=== PATIENT | male | born 1960 | race Caucasian/White ===

== ENCOUNTER 2017-07-26 11:17 | Observation (INO) | payer MEDICAID, SELFPAY ==
[2017-07-26] VITALS (16 sets, daily range): BP systolic 147–183; BP diastolic 75–103; PULSE 57–80; RESP 12–18; TEMP 36.6–36.7; O2SAT 94–97; BMI 32.0; BMI 31.6
--- NOTE | 2017-07-26 11:26 | RAD_ITS ---
STUDY: X-RAY CHEST REASON FOR EXAM: Male, 56 years old. Cough. TECHNIQUE: Single AP portable view of the chest. COMPARISON: 10/01/2015 FINDINGS: There is mild elevation of the right hemidiaphragm. The lungs are clear and expanded. There is no demonstrated pleural abnormality. Normal size heart. Normal mediastinum and anita. Normal visualized pulmonary arteries. There is mild atherosclerotic calcification of the aortic arch with tortuosity. The thoracic spine is not well-visualized. Normal visualized ribs, clavicles, and shoulders. There is no demonstrated abnormality of the visualized soft tissue structures of the upper abdomen. RAD/Chest 1 View IMPRESSION: No active pulmonary disease. Electronically Signed: Brandon Pineda MD at 12:14 EDT Tel , Service support ,
--- NOTE | 2017-07-26 11:26 | EKG12_ITS ---
Test Reason : DIZZINESS Blood Pressure : / mmHG Vent. Rate : 074 BPM Atrial Rate : 074 BPM P-R Int : 178 ms QRS Dur : 076 ms QT Int : 388 ms P-R-T Axes : 049 -15 036 degrees QTc Int : 430 ms Normal sinus rhythm Normal ECG Confirmed by CHAZ BEE MD ([id number]), video editor LETY PUENTES ([id number]) on 07/28/2017 3:28:52 PM Referred By: JORGE Confirmed By:CHAZ BEE MD
--- NOTE | 2017-07-26 11:26 | CT_ITS ---
STUDY: CT BRAIN WITHOUT CONTRAST REASON FOR EXAM: Male, 56 years old. Dizziness and seizure. RADIATION DOSAGE (If Supplied By Facility): CTDIvol = ( 44.99 ) mGy, DLP = ( 796.11 ) mGycm TECHNIQUE: Transaxial CT imaging of the brain was performed without administration of intravenous contrast material. Individualized dose optimization techniques were used for this CT. COMPARISON: 01/01/2017. FINDINGS: Normal soft tissue structures. The patient again is status post left temporal craniotomy. Normal size ventricles and extra-axial spaces for the patient's age. There is encephalomalacia in the left upper region unchanged since prior exam. Normal basal ganglia and thalami. Normal brainstem. Normal cerebellum. There is no intracranial hemorrhage. There are no findings of an acute ischemic infarction. Normal visualized paranasal sinuses. CT/Brain/Head without Contrast IMPRESSION: No significant change. No acute intracranial process. Electronically Signed: Brandon Pineda MD at 12:39 EDT Tel , Service support ,
--- NOTE | 2017-07-26 11:31 | ED.DCSUM_ITS ---
- ER Visit Summary Date of Service: 07/26/17 Chief Complaint: Dizziness, numbness History of Present Illness: The patient is a 56 M with medical history significant for prior traumatic brain injury and seizure disorder along with prior stroke presents with 48 hours of dizziness and right-sided numbness. Patient states he woke Thursday. He felt like he had some drooping in his right face. He also had some numbness on his right face, arm, and leg. He states his symptoms really have not resolved. Today, he is begun to have more unsteadiness on his feet. He describes a sensation of motion and he has been having double vision. He states that he had a prior stroke with some left- sided deficits that he recovered from. He is not on anticoagulants. The patient states when he walks, he just feels very unsteady like he is going to fall over. He is on Tegretol, but has no history of being Tegretol toxic. He has had no recent falls. He did not strike his head. He denies any trouble speaking or swallowing. Physical Examination: Patient has an NIH of 3. He received 1 point for sensory deficit of the right side. He received 1 point for ataxia. 1 point for right leg weakness. There is no visual field cut. Head is normal cephalic, atraumatic. Pupils equal round reactive. Neck supple. Heart regular rate and rhythm. Lungs clear. Abdomen soft. Test Results: [] Emergency Department Course and Treatment: The patient has nystagmus when looking to the extremes of gait. He also has ataxia and focal neurologic symptoms. He is outside the window for TPA. His NIH is only 3 and he has had symptoms for 48 hours. A lot of the patient's symptoms would fit with Tegretol toxicity, however I would not expect him to have focal neurologic complaints with just Tegretol toxicity. His head CT is unremarkable. Screening labs are unremarkable. His Tegretol level is supratherapeutic at almost 18. I do feel that this would explain his double vision and ataxia, however I am hesitant to pin all of his symptoms on medication toxicity. I do for the patient's can require formal MRI for stroke rule out. Patient will be admitted and is discussed with the hospitalist. Treatment Plan: [] Disposition: Admission Impression: 1. Right-sided paresthesias 2. Ataxia 3. Tegretol toxicity This note was generated with [employer] dictation software. It may contain incorrect words, spelling, and punctuation that were not noted in review of the chart prior to signing ED Disposition - Plan for ED Patient: Chief Complaint: Dizziness Referrals: Helder Camejo MD [Primary Care Provider] -
[2017-07-26] MEDS: 0.9% Normal Saline 1,000 ML 100 ML IV ×2 (11:50→17:26)
[2017-07-26 11:51] LABS: Absolute Lymphocyte Count 0.74 X10^3/ul (0.83-4.51); Absolute Neutrophil Count 4.6 X10^3/uL (2.0-7.7); Basophil# 0.03 X10^3/uL; Basophil% 0.5 % (0-1); Eosinophil# 0.06 X10^3/uL; Hematocrit 41.7 % (40-54); Hemoglobin 13.6 g/dl (13.0-16.5); Lymphocyte # 0.74 X10^3/ul (4.0); Lymphocyte % 12.3 % (19-41); Mean Corp Hgb Conc 32.6 g/gl (32-36); Mean Corpuscular Hgb 34.6 pg (27.0-32.0); Mean Corpuscular Volume 106.1 fL (80-94); Mean Platelet Vol. 9.6 fl (6.2-12.0); Monocyte# 0.57 X10^3/uL; Monocyte% 9.5 % (0-10); Neutrophil # 4.57 X10^3/uL (2.7-7.7); POSITIVE COUNT NO; POSITIVE DIFFERENTIAL NO; POSITIVE MORPHOLOGY NO; Platelet Count 208 K/mm3 (150-450); RBC Distribution Width CV 13.6 % (11.6-14.6); Red Blood Count 3.93 M/mm3 (4.6-6.2)
[2017-07-26 11:56] LABS: International Normalized Ratio 0.9; Prothrombin Time (Protime)PT. 12.4 SECONDS (11.7-14.9)
[2017-07-26 11:57] LABS: Partial Thromboplast Time 23.4 Seconds (24.1-36.2)
[2017-07-26 12:07] LABS: Anion Gap 6 (5-15); BUN 8 mg/dL (7-18); Calcium,Total 8.4 mg/dL (8.5-10.1); Chloride 103 mmol/L (98-107); EST Glomerular Filtration Rate 107 mL/min (>60); Est Glom Filt Rate - Afr Amer 130 mL/min (>60); Estimated Creatinine Clearance 105.56 ml/min; Glucose 119 mg/dL (74-106); Potassium 3.8 mmol/L (3.5-5.1); Sodium Level 138 mmol/L (136-145)
[2017-07-26 12:26] LABS: Bedside Glucose 110 mg/dL (70-110)
[2017-07-26 12:42] LABS: Carbamazepine (Tegretol) 17.8 ug/mL (4.0-12.0)
--- NOTE | 2017-07-26 12:43 | ED.RN ---
DR PRICE NOTIFIED OF TEGRETOL LEVEL
--- NOTE | 2017-07-26 13:30 | PCM.HP.STD ---
Problem List (1) CVA (cerebral vascular accident) Status: Chronic (2) Substance use disorder Status: Chronic (3) TBI (traumatic brain injury) Status: Chronic (4) Hepatitis C Status: Chronic (5) Seizure Status: Chronic (6) Personal history of traumatic brain injury Status: Deleted History of Present Illness Date of Admission: 07/26/17 Chief Complaint: Dizziness, double vision, right-sided numbness. The patient is a 56 year old M with past medical history as mentioned above presented to the emergency room because of dizziness, double vision and numbness on the right side of his body. His symptoms started 2 days ago with dizziness, described as feeling unsteady, about to fall, aggravated by standing up, associated with double vision that was intermittent and on the same day, he started having numbness and tingling on the right side of his face, right upper and lower extremities. He mentioned that has been having difficulties finding the words at the same time. He had a history of stroke in 1996 which left him with minimal left side facial droop as well as minimal weakness in the left side of his body. He mentioned that the numbness, tingling and minimal weakness in the right side is all new. He history of traumatic brain injury long time ago status post craniectomy. He had a history of seizure disorder secondary to the traumatic brain injury and he has been on Tegretol for seizure and he is not sure was he had a seizure episode. He had a history of stroke in 1996 with residual minimal left-sided facial droop and minimal weakness on the left upper and lower extremities. He history of renal cell carcinoma status post partial left nephrectomy. In the emergency room, his initial NIH score was 3. His blood pressure was around 160 systolic, other vital signs are stable. His routine blood work was unremarkable. EKG revealed normal sinus rhythm with normal [place] interval, normal QRS, normal QTC and no acute ischemic changes. Troponin is negative. Pro time and INR were normal. CT scan brain showed no acute infarction or hemorrhage. Chest x-ray was normal, no infiltrate, consolidation or effusion. Tegretol level was 17.8 which is elevated. He is being admitted for right side paresthesia, ataxia for evaluation and also found to have Tegretol toxicity. Past Medical History Past Medical History (Chronic Problems): Chronic Problems History of renal cell carcinoma (Chronic) COPD (chronic obstructive pulmonary disease) (Chronic) CVA (cerebral vascular accident) (Chronic) Substance use disorder (Chronic) TBI (traumatic brain injury) (Chronic) Hepatitis C (Chronic) Seizure (Chronic) Allergies celecoxib [From Celebrex] Allergy (Verified 01/01/17 22:22) Unknown NSAIDS (Non-Steroidal Anti-Inflamma Allergy (Verified 01/01/17 22:22) Unknown phenytoin sodium [From Dilantin] Allergy (Verified 01/01/17 22:22) Unknown phenytoin sodium extended [From Dilantin] Allergy (Verified 01/01/17 22:22) Unknown pregabalin [From Lyrica] Allergy (Verified 01/01/17 22:22) Unknown quetiapine fumarate [From Seroquel] Allergy (Verified 01/01/17 22:22) Unknown tramadol Allergy (Verified 01/01/17 22:22) Unknown diclofenac Adverse Reaction (Verified 01/01/17 22:22) Rash divalproex sodium [From Depakote] Adverse Reaction (Verified 01/01/17 22:22) Unknown gabapentin [From Neurontin] Adverse Reaction (Verified 01/01/17 22:22) Unknown Home Medications: Ambulatory Orders Medication Instructions Recorded Carbamazepine [Tegretol] 400 mg PO BIDCM 01/08/13 Galantamine Hbr [Razadyne] 4 mg PO BIDCM 01/08/13 Buspirone HCl [Buspar] 15 mg PO BID 07/13/14 Lidocaine [Lidoderm Patch] 1 patch TOPICAL DAILY PRN PRN 08/10/14 Lorazepam [Ativan] 1 mg PO TID PRN PRN #7 tablet 08/11/14 Tamsulosin HCl [Flomax] 0.4 mg PO DAILY 01/01/17 Surgical History: - - Craniotomy, partial left nephrectomy for renal cell carcinoma. Psychiatric History: No pertinent psych hx Lives: Alone Smoking Status: Current every day smoker Alcohol: Occasional Drugs: None - *Family History Paternal History Items: Stroke - father had a st Maternal History Items: No pertinent history Review of Systems Constitutional: Denies: Anorexia, Chills, Fever, Weakness Eyes: Reports: Blurred vision, Double vision, Vision Change. Denies: Drainage, Redness HEENT: Denies: Difficulty Hearing, Ear Pain, Eye Pain, Nasal Congestion, Sore Throat Cardiovascular: Reports: Light Headedness. Denies: Chest Pain, Chest Pressure, Chest Tightness, Edema, Heaviness, Palpitations, Paroxysmal Noc. Dyspnea, Syncope Respiratory: Denies: Cough, Pleuritic Pain, Shortness of Breath, Sputum production, Wheezing Gastrointestinal: Denies: Abdominal Pain, Constipation, Diarrhea, Nausea, Vomiting Genitourinary: Denies: Dysuria, Frequency, Hematuria Musculoskeletal: Denies: Arm Pain, Back Pain, Foot Pain Skin: Denies: Dryness, Rash Neurological: Reports: Balance problems, Double vision, Change in Speech, Focal weakness, Headaches, Numbness, Tingling. Denies: Confusion Psychiatric: Denies: Anxiety, Depression Endocrine: Denies: Change in Body Habitus, Polydipsia VTE Information - Inpt Only VTE Present on Admission: No VTE Mechan Device Prophylaxis: None VTE Pharm Prophylaxis ordered?: Yes - Physical Exam General: Alert, Oriented x3, Cooperative, No apparent distress HEENT: Atraumatic, PERRLA, EOMI Oral: Moist Mucosa, No Gingival or Mucosal Lesions/ Ulcerations Neck: Supple, No JVD, Negative Carotid Bruits, Trachea Midline, Thyroid Normal Size and Texture Lungs: Clear to auscultation, Normal air movement, No rhonchi, No wheeze, No rales Cardiovascular: Regular Rhythm, Normal S1, Normal S2, No murmurs, PMI Normal Abdomen: Bowel Sounds Present, Soft, Non Tender, Non-Distended, No Hepato-splenomegaly Extremities: No clubbing, No cyanosis, No edema Skin: No rashes, No breakdown Lymphatic: No Cervical, Supraclavicular, or Inguinal Adenopathy Neurological: - - Minimal left-sided facial droop. Power is 4+ x 5 on the left side and 5 x 5 on the right side. Psych/Mental Status: Normal Affect, Appropriate, Alert and oriented to time, place, person, mood and affect Vital Signs Temp Pulse Resp BP Pulse Ox 97.9 F 65 13 167/92 H 94 07/26/17 12:26 07/26/17 13:00 07/26/17 13:00 07/26/17 13:00 07/26/17 13:00 Oxygen Delivery Method Room Air Weight: 217 lb Body Mass Index (BMI) 32.0 Finger Stick Blood Glucose 110 Laboratory Tests Past 24 Hrs 07/26/17 07/26/17 07/26/17 11:40 11:40 11:40 WBC 6.0 RBC 3.93 L Hgb 13.6 Hct 41.7 MCV 106.1 H MCH 34.6 H MCHC 32.6 RDW 13.6 RDW Differential 53.0 H Plt Count 208 MPV 9.6 Immature Gran % (Auto) 0.700 Neut % (Auto) 76.0 H Lymph % (Auto) 12.3 L [place] % (Auto) 9.5 Eos % (Auto) 1.0 Baso % (Auto) 0.5 Absolute Neuts (auto) 4.6 Absolute Lymphs (auto) 0.74 L Total Counted Not Reportable PT 12.4 INR 0.9 APTT 23.4 L Sodium 138 Potassium 3.8 Chloride 103 Carbon Dioxide 29.0 Anion Gap 6 BUN 8 Creatinine 0.80 Estim Creat Clear Calc 105.56 Est GFR (MDRD) Af Amer 130 Est GFR (MDRD) Non-Af 107 BUN/Creatinine Ratio 10.0 Glucose 119 H Calcium 8.4 L Troponin I < 0.02 Carbamazepine 07/26/17 11:40 WBC RBC Hgb Hct MCV MCH MCHC RDW RDW Differential Plt Count MPV Immature Gran % (Auto) Neut % (Auto) Lymph % (Auto) [place] % (Auto) Eos % (Auto) Baso % (Auto) Absolute Neuts (auto) Absolute Lymphs (auto) Total Counted PT INR APTT Sodium Potassium Chloride Carbon Dioxide Anion Gap BUN Creatinine Estim Creat Clear Calc Est GFR (MDRD) Af Amer Est GFR (MDRD) Non-Af BUN/Creatinine Ratio Glucose Calcium Troponin I Carbamazepine 17.8 H* POC Glucose 07/26/17 12:18 POC Glucose 110 Clinical Impression(s) from Imaging Studies Brain CT 07/26/17 11:26 IMPRESSION: No significant change. No acute intracranial process. Electronically Signed: Brandon Pineda MD at 12:39 EDT Tel , Service support , Chest X-Ray 07/26/17 11:26 IMPRESSION: No active pulmonary disease. Electronically Signed: Brandon Pineda MD at 12:14 EDT Tel , Service support , Assessment/Plan This is a 56 years old male patient presented to the emergency room because of symptoms of dizziness, double vision, headache, numbness and tingling on the right side of his body and he is being admitted for evaluation for possible TIA versus stroke as well as Tegretol toxicity. #1 right side paresthesia/ataxia/diplopia: Initial CT scan brain without acute findings. He does have minimal left facial droop and minimal weakness in the left side because of history of stroke. The symptoms is on the right side at this time which is all new. Tegretol side effects includes dizziness, unsteadiness and blurred vision but his symptoms are unilateral. EKG revealed normal sinus rhythm without evidence of cardiac arrhythmias or acute ischemic changes. Blood pressure is around 160 systolic, slightly elevated. Routine blood work was unremarkable. Plan: Admit to PCU, cardiac monitoring, NIH stroke scale, MRI brain, MRA of the head and neck, 2D echocardiogram, neurology consult, start baby aspirin and Lipitor, fasting lipid profile, PT OT evaluation and treatment. #2 Tegretol toxicity: Patient has been on Tegretol for seizure disorder. He mentioned that he takes his Tegretol as prescribed. Activity level is 17.8. As mentioned above, Tegretol can cause dizziness, drowsiness and unsteadiness but apparently, his symptoms are unilateral. Plan as above, hold Tegretol, IV fluids, repeat Tegretol level tomorrow morning. #3 seizure disorder: Patient has been on Tegretol and his Tegretol level is supratherapeutic. Plan to hold through 12, IV fluids, repeat to get out of the morning. According to the patient, he is not sure when he had his last seizure but he thinks it was back in April,. #4 traumatic brain injury: Status post craniectomy, stable. #5 history of stroke: With residual minimal left-sided facial droop and minimal left-sided body weakness. Plan as above. #6 history of renal cell carcinoma: Status post partial left nephrectomy, kidney function is normal. #7 COPD: Maintain a pulse ox on room air, plan for albuterol as needed. Chest x-ray showed no acute findings. #8 DVT prophylaxis: Subcu Lovenox. This note was generated with [employer] software. It may contain incorrect words, spelling, and punctuation that were not noted in checking the note before signing. Code Visit Inpatient E&M: 04276 Init Hosp L3
--- NOTE | 2017-07-26 13:38 | HP.PCM_ITS ---
Problem List (1) CVA (cerebral vascular accident) Status: Chronic (2) Substance use disorder Status: Chronic (3) TBI (traumatic brain injury) Status: Chronic (4) Hepatitis C Status: Chronic (5) Seizure Status: Chronic (6) Personal history of traumatic brain injury Status: Deleted History of Present Illness Date of Admission: 07/26/17 Chief Complaint: Dizziness, double vision, right-sided numbness. The patient is a 56 year old M with past medical history as mentioned above presented to the emergency room because of dizziness, double vision and numbness on the right side of his body. His symptoms started 2 days ago with dizziness, described as feeling unsteady, about to fall, aggravated by standing up, associated with double vision that was intermittent and on the same day, he started having numbness and tingling on the right side of his face, right upper and lower extremities. He mentioned that has been having difficulties finding the words at the same time. He had a history of stroke in 1996 which left him with minimal left side facial droop as well as minimal weakness in the left side of his body. He mentioned that the numbness, tingling and minimal weakness in the right side is all new. He history of traumatic brain injury long time ago status post craniectomy. He had a history of seizure disorder secondary to the traumatic brain injury and he has been on Tegretol for seizure and he is not sure was he had a seizure episode. He had a history of stroke in 1996 with residual minimal left-sided facial droop and minimal weakness on the left upper and lower extremities. He history of renal cell carcinoma status post partial left nephrectomy. In the emergency room, his initial NIH score was 3. His blood pressure was around 160 systolic, other vital signs are stable. His routine blood work was unremarkable. EKG revealed normal sinus rhythm with normal NH interval, normal QRS, normal QTC and no acute ischemic changes. Troponin is negative. Pro time and INR were normal. CT scan brain showed no acute infarction or hemorrhage. Chest x-ray was normal, no infiltrate , consolidation or effusion. Tegretol level was 17.8 which is elevated. He is being admitted for right side paresthesia, ataxia for evaluation and also found to have Tegretol toxicity. Past Medical History Past Medical History (Chronic Problems): Chronic Problems History of renal cell carcinoma (Chronic) COPD (chronic obstructive pulmonary disease) (Chronic) CVA (cerebral vascular accident) (Chronic) Substance use disorder (Chronic) TBI (traumatic brain injury) (Chronic) Hepatitis C (Chronic) Seizure (Chronic) Allergies celecoxib [From Celebrex] Allergy (Verified 01/01/17 22:22) Unknown NSAIDS (Non-Steroidal Anti-Inflamma Allergy (Verified 01/01/17 22:22) Unknown phenytoin sodium [From Dilantin] Allergy (Verified 01/01/17 22:22) Unknown phenytoin sodium extended [From Dilantin] Allergy (Verified 01/01/17 22:22) Unknown pregabalin [From Lyrica] Allergy (Verified 01/01/17 22:22) Unknown quetiapine fumarate [From Seroquel] Allergy (Verified 01/01/17 22:22) Unknown tramadol Allergy (Verified 01/01/17 22:22) Unknown diclofenac Adverse Reaction (Verified 01/01/17 22:22) Rash divalproex sodium [From Depakote] Adverse Reaction (Verified 01/01/17 22:22) Unknown gabapentin [From Neurontin] Adverse Reaction (Verified 01/01/17 22:22) Unknown Home Medications: Ambulatory Orders Medication Instructions Recorded Carbamazepine [Tegretol] 400 mg PO BIDCM 01/08/13 Galantamine Hbr [Razadyne] 4 mg PO BIDCM 01/08/13 Buspirone HCl [Buspar] 15 mg PO BID 07/13/14 Lidocaine [Lidoderm Patch] 1 patch TOPICAL DAILY PRN PRN 08/10/14 Lorazepam [Ativan] 1 mg PO TID PRN PRN #7 tablet 08/11/14 Tamsulosin HCl [Flomax] 0.4 mg PO DAILY 01/01/17 Surgical History: - - Craniotomy, partial left nephrectomy for renal cell carcinoma. Psychiatric History: No pertinent psych hx Lives: Alone Smoking Status: Current every day smoker Alcohol: Occasional Drugs: None - *Family History Paternal History Items: Stroke - father had a st Maternal History Items: No pertinent history Review of Systems Constitutional: Denies: Anorexia, Chills, Fever, Weakness Eyes: Reports: Blurred vision, Double vision, Vision Change. Denies: Drainage, Redness HEENT: Denies: Difficulty Hearing, Ear Pain, Eye Pain, Nasal Congestion, Sore Throat Cardiovascular: Reports: Light Headedness. Denies: Chest Pain, Chest Pressure, Chest Tightness, Edema, Heaviness, Palpitations, Paroxysmal Noc. Dyspnea, Syncope Respiratory: Denies: Cough, Pleuritic Pain, Shortness of Breath, Sputum production, Wheezing Gastrointestinal: Denies: Abdominal Pain, Constipation, Diarrhea, Nausea, Vomiting Genitourinary: Denies: Dysuria, Frequency, Hematuria Musculoskeletal: Denies: Arm Pain, Back Pain, Foot Pain Skin: Denies: Dryness, Rash Neurological: Reports: Balance problems, Double vision, Change in Speech, Focal weakness, Headaches, Numbness, Tingling. Denies: Confusion Psychiatric: Denies: Anxiety, Depression Endocrine: Denies: Change in Body Habitus, Polydipsia VTE Information - Inpt Only VTE Present on Admission: No VTE Mechan Device Prophylaxis: None VTE Pharm Prophylaxis ordered?: Yes - Physical Exam General: Alert, Oriented x3, Cooperative, No apparent distress HEENT: Atraumatic, PERRLA, EOMI Oral: Moist Mucosa, No Gingival or Mucosal Lesions/ Ulcerations Neck: Supple, No JVD, Negative Carotid Bruits, Trachea Midline, Thyroid Normal Size and Texture Lungs: Clear to auscultation, Normal air movement, No rhonchi, No wheeze, No rales Cardiovascular: Regular Rhythm, Normal S1, Normal S2, No murmurs, PMI Normal Abdomen: Bowel Sounds Present, Soft, Non Tender, Non-Distended, No Hepato- splenomegaly Extremities: No clubbing, No cyanosis, No edema Skin: No rashes, No breakdown Lymphatic: No Cervical, Supraclavicular, or Inguinal Adenopathy Neurological: - - Minimal left-sided facial droop. Power is 4+ x 5 on the left side and 5 x 5 on the right side. Psych/Mental Status: Normal Affect, Appropriate, Alert and oriented to time, place, person, mood and affect Vital Signs Temp Pulse Resp BP Pulse Ox 97.9 F 65 13 167/92 H 94 07/26/17 12:26 07/26/17 13:00 07/26/17 13:00 07/26/17 13:00 07/26/17 13:00 Oxygen Delivery Method Room Air Weight: 217 lb Body Mass Index (BMI) 32.0 Finger Stick Blood Glucose 110 Laboratory Tests Past 24 Hrs 07/26/17 07/26/17 07/26/17 11:40 11:40 11:40 WBC 6.0 RBC 3.93 L Hgb 13.6 Hct 41.7 MCV 106.1 H MCH 34.6 H MCHC 32.6 RDW 13.6 RDW Differential 53.0 H Plt Count 208 MPV 9.6 Immature Gran % (Auto) 0.700 Neut % (Auto) 76.0 H Lymph % (Auto) 12.3 L [place] % (Auto) 9.5 Eos % (Auto) 1.0 Baso % (Auto) 0.5 Absolute Neuts (auto) 4.6 Absolute Lymphs (auto) 0.74 L Total Counted Not Reportable PT 12.4 INR 0.9 APTT 23.4 L Sodium 138 Potassium 3.8 Chloride 103 Carbon Dioxide 29.0 Anion Gap 6 BUN 8 Creatinine 0.80 Estim Creat Clear Calc 105.56 Est GFR (MDRD) Af Amer 130 Est GFR (MDRD) Non-Af 107 BUN/Creatinine Ratio 10.0 Glucose 119 H Calcium 8.4 L Troponin I < 0.02 Carbamazepine 07/26/17 11:40 WBC RBC Hgb Hct MCV MCH MCHC RDW RDW Differential Plt Count MPV Immature Gran % (Auto) Neut % (Auto) Lymph % (Auto) [place] % (Auto) Eos % (Auto) Baso % (Auto) Absolute Neuts (auto) Absolute Lymphs (auto) Total Counted PT INR APTT Sodium Potassium Chloride Carbon Dioxide Anion Gap BUN Creatinine Estim Creat Clear Calc Est GFR (MDRD) Af Amer Est GFR (MDRD) Non-Af BUN/Creatinine Ratio Glucose Calcium Troponin I Carbamazepine 17.8 H* POC Glucose 07/26/17 12:18 POC Glucose 110 Clinical Impression(s) from Imaging Studies Brain CT 07/26/17 11:26 IMPRESSION: No significant change. No acute intracranial process. Electronically Signed: Brandon Pineda MD at 12:39 EDT Tel , Service support , Chest X-Ray 07/26/17 11:26 IMPRESSION: No active pulmonary disease. Electronically Signed: Brandon Pineda MD at 12:14 EDT Tel , Service support , Assessment/Plan This is a 56 years old male patient presented to the emergency room because of symptoms of dizziness, double vision, headache, numbness and tingling on the right side of his body and he is being admitted for evaluation for possible TIA versus stroke as well as Tegretol toxicity. #1 right side paresthesia/ataxia/diplopia: Initial CT scan brain without acute findings. He does have minimal left facial droop and minimal weakness in the left side because of history of stroke. The symptoms is on the right side at this time which is all new. Tegretol side effects includes dizziness, unsteadiness and blurred vision but his symptoms are unilateral. EKG revealed normal sinus rhythm without evidence of cardiac arrhythmias or acute ischemic changes. Blood pressure is around 160 systolic, slightly elevated. Routine blood work was unremarkable. Plan: Admit to PCU, cardiac monitoring, NIH stroke scale, MRI brain, MRA of the head and neck, 2D echocardiogram, neurology consult, start baby aspirin and Lipitor, fasting lipid profile, PT OT evaluation and treatment. #2 Tegretol toxicity: Patient has been on Tegretol for seizure disorder. He mentioned that he takes his Tegretol as prescribed. Activity level is 17.8. As mentioned above, Tegretol can cause dizziness, drowsiness and unsteadiness but apparently, his symptoms are unilateral. Plan as above, hold Tegretol, IV fluids, repeat Tegretol level tomorrow morning. #3 seizure disorder: Patient has been on Tegretol and his Tegretol level is supratherapeutic. Plan to hold through 12, IV fluids, repeat to get out of the morning. According to the patient, he is not sure when he had his last seizure but he thinks it was back in April,. #4 traumatic brain injury: Status post craniectomy, stable. #5 history of stroke: With residual minimal left-sided facial droop and minimal left-sided body weakness. Plan as above. #6 history of renal cell carcinoma: Status post partial left nephrectomy, kidney function is normal. #7 COPD: Maintain a pulse ox on room air, plan for albuterol as needed. Chest x -ray showed no acute findings. #8 DVT prophylaxis: Subcu Lovenox. This note was generated with [employer]ation software. It may contain incorrect words, spelling, and punctuation that were not noted in checking the note before signing. Code Visit Inpatient E&M: 32479 Init Hosp L3
--- NOTE | 2017-07-26 14:01 | ECHOD_ITS ---
Reason For Study: TIA/CVA Procedure This was a 2D Doppler, Color Flow transthoracic echocardiogram. Exam performed portable in patient room. Left Ventricle Normal LV size. Left ventricular systolic function is normal. The estimated ejection fraction is 60 %. No evidence for diastolic dysfunction. No regional wall motion abnormalities noted. Right Ventricle Normal RV size. Normal systolic function. Atria The left atrium is mildly enlarged. Normal right atrium. Mitral Valve Normal mitral valve. Mild (1+) eccentric mitral valve insufficiency. Tricuspid Valve Normal tricuspid valve. Aortic Valve Normal aortic valve. Trisinus/trileaflet aortic valve. Pulmonic Valve Normal pulmonic valve. Great Vessels Mildly dilated aortic root. The pulmonary artery is normal size. Normal inferior vena cava. Pericardium/Pleural No pericardial effusion. Medication Previously negative bubble study. MMode/2D Measurements & Calculations LVIDd: 4.6 cm IVSd: 1.3 cm Ao root diam: 4.1 cm LVIDs: 3.3 cm LVPWd: 1.1 cm RVDd: 4.3 cm FS: 29.1 % LAV(MOD-bp): 64.5 ml LAV(MOD-bp) Indexed: 30.4 ml/m2 LA A4 area: 22.6 cm2 RA A4 area: 19.9 cm2 LAV(MOD-sp2): 61.6 ml LAV(MOD-sp4): 69.7 ml Doppler Measurements & Calculations MV E max nathaniel: 55.7 cm/sec Lat Peak E' Nathaniel: 15.1 cm/sec Med Peak E' Nathaniel: 8.8 cm/sec MV A max nathaniel: 46.0 cm/sec E/E' lat: 3.7 E/E' med: 6.3 MV E/A: 1.2 Ao V2 max: 121.8 cm/sec LV V1 max: 100.9 cm/sec PA V2 max: 91.1 cm/sec Ao max P.9 mmHg LV V1 max P.1 mmHg TR max nathaniel: 221.1 cm/sec TR max P.6 mmHg Interpretation Summary Normal LV size. Left ventricular systolic function is normal. The estimated ejection fraction is 60 %. No evidence for diastolic dysfunction. The left atrium is mildly enlarged. Mildly dilated aortic root. Structurally normal valves. Ordering Physician: Han Bhatt Referring Physician: PAULA YANG Performed By: Damaris Bardales, MAHESH, RVT
--- NOTE | 2017-07-26 17:16 | NURSING ---
patient care, medication administration, & documentation by Osman Tomas, student nurse, done under the supervision of this RN.
[2017-07-26] MEDS: Galantamine Hydrobromide 4 MG Tablet PO (17:27)
[2017-07-26] MEDS: Atorvastatin Calcium 80 MG Tablet PO (21:46)
[2017-07-26] MEDS: busPIRone 15 MG TABLET PO (21:46)
[2017-07-26] MEDS: Albuterol 2.5 MG/3 ML VIAL.NEB. INHALATION (22:09)
[2017-07-27] VITALS (11 sets, daily range): BP systolic 129–142; BP diastolic 68–86; PULSE 57–71; RESP 18–19; TEMP 36.5–36.8; O2SAT 94–96; BMI 31.6
[2017-07-27] MEDS: 0.9% Normal Saline 1,000 ML 100 ML IV (03:07)
[2017-07-27] MEDS: Enoxaparin 40 MG/0.4 ML Syringe SC (05:02)
[2017-07-27 06:09] LABS: Carbamazepine (Tegretol) 10.4 ug/mL (4.0-12.0)
[2017-07-27 06:10] LABS: Cholesterol 190 mg/dL (200); High Density Lipoprotein 98 mg/dL; Triglycerides 58 mg/dL; Very Low Density Lipoprotein 12 mg/dL (5-40)
[2017-07-27] MEDS: Albuterol 2.5 MG/3 ML VIAL.NEB. INHALATION ×2 (07:25→13:24)
--- NOTE | 2017-07-27 07:25 | MRI_ITS ---
STUDY: MRA OF THE HEAD WITHOUT CONTRAST REASON FOR EXAM: Male, 56 years old. Numbness and tingling of the right side. Dizziness. Double vision. History of previous traumatic brain injury made with CVA and residual left facial droop. TECHNIQUE: 3-D [id number] (TOF) imaging was performed with MIPs. The study was performed unenhanced. COMPARISON: None. FINDINGS: Normal bilateral petrous carotid arteries. Normal right cavernous carotid artery with a normal supraclinoid bifurcation. Normal left cavernous carotid artery with a normal supraclinoid bifurcation. Normal right A1 segments of the anterior cerebral artery. Normal left A1 segments of the anterior cerebral artery. Normal intact anterior communicating artery (ACOM). Normal bilateral A2 segments of the anterior cerebral arteries. Normal right M1 and M2 segments of the middle cerebral arteries, with a normal M1 bifurcation. Normal left M1 and M2 segments of the middle cerebral arteries, with a normal M1 bifurcation. Normal right posterior communicating artery (PCOM). Normal left posterior communicating artery (PCOM). Normal bilateral vertebral arteries. Normal basilar artery with a normal basilar bifurcation. The visualized bilateral superior cerebellar (SCA) arteries are normal. Normal bilateral P1, P2 and visualized P3 segments of the posterior cerebral arteries. There is no demonstrated aneurysm of the [place] of [place]. There is no major vessel occlusion or hemodynamically significant stenosis. There is no demonstrated abnormality of the visualized brain. MRI/MRA Head ONLY without Contrast IMPRESSION: Normal MRA of the head Electronically Signed: Zeeshan Jean MD at 13:38 EDT , Service support ,
--- NOTE | 2017-07-27 07:25 | MRI_ITS ---
STUDY: MRI BRAIN WITHOUT CONTRAST REASON FOR EXAM: Male, 56 years old. Right-sided numbness and numbness and tingling. Dizziness. Double vision. History of previous craniotomy. History of prior CVA with residual left facial droop. TECHNIQUE: Standardized multiplanar fat and water weighted pulse sequences were obtained. COMPARISON: August 11, 2014. FINDINGS: There is no pathologic restricted diffusion. There is mild cerebral atrophy with widening of the extra-axial spaces and ventricular dilatation. There are a limited number of small white matter hyperintensities, distributed throughout the deep white matter tracts of the cerebral hemispheres, consistent with mild chronic white matter ischemic changes. Again seen is a left temporal craniotomy and adjacent and subjacent focal encephalomalacia and gliosis of the left temporal lobe. Normal bilateral basal ganglia. Normal thalami. There is no extra-axial fluid accumulation. Normal flow voids within the major intracranial circulation suggesting patency by spin echo criteria. Normal sella turcica, pituitary gland, infundibular stalk, optic chiasm and hypothalamus. Normal tectal plate and pineal gland. Normal midbrain, loretta and medulla. Normal cerebellum. Normal basal cisterns. Normal bilateral temporal bones. Normal bilateral internal auditory canals. No demonstrated orbital abnormality, within the constraints of a routine brain study. Normal visualized paranasal sinuses. Normal calvarium and skull base. Normal visualized soft tissue structures. Normal visualized upper cervical spine. MRI/Brain without Contrast IMPRESSION: Stable examination. No acute process. No restricted diffusion. Status post left temporal craniotomy with adjacent and subjacent left temporal lobe encephalomalacia and gliosis. Electronically Signed: Zeeshan Jean MD at 13:35 EDT , Service support ,
--- NOTE | 2017-07-27 07:26 | MRI_ITS ---
STUDY: MRA NECK WITH AND WITHOUT CONTRAST REASON FOR EXAM: Male, 56 years old. History of traumatic brain injury with CVA and residual left facial droop. TECHNIQUE: 3-D [id number] (TOF) imaging was performed in an 1.5 T MRI scanner. 10 ml of Gadavist was administered for the contrast enhanced images. COMPARISON: None. FINDINGS: RIGHT CAROTID ARTERIES: Normal right common carotid artery (CCA). Normal right common carotid bulb. Normal origin of the right internal carotid (ICA) artery without a hemodynamically significant stenosis. Normal visualized cervical portion of the right internal carotid artery. Normal origin of the right external carotid artery (ECA). LEFT CAROTID ARTERIES: Normal left common carotid artery (CCA). Normal left common carotid bulb. Normal origin of the left internal carotid (ICA) artery without a hemodynamically significant stenosis. Normal visualized cervical portion of the left internal carotid artery. Normal origin of the left external carotid artery (ECA). VERTEBRAL ARTERIES: Normal antegrade flow within the bilateral vertebral artery without a hemodynamically significant stenosis. MRI/MRA Neck WITH and W/O Contrast IMPRESSION: There is no evident hemodynamically significant stenosis. Electronically Signed: Zeeshan Jean MD at 13:53 EDT , Service support ,
[2017-07-27] MEDS: busPIRone 15 MG TABLET PO (10:03)
[2017-07-27] MEDS: Acetaminophen 325 MG Tablet 650 MG PO (10:03)
[2017-07-27] MEDS: Galantamine Hydrobromide 4 MG Tablet PO (10:03)
--- NOTE | 2017-07-27 10:55 | CON.PCM_ITS ---
Reason for Consult Date of Consultation: 07/27/17 Reason for Consultation: Diplopia and right-sided numbness History of Present Illness: The patient is a 56 year old male with a history remotely of a traumatic brain injury approximately 20 years ago with seizures since that time, apparently he had failed multiple anticonvulsants and has been on Tegretol for about 10 years. He says he has a seizure normally once or twice per year. He had a seizure in April and his Tegretol dose was increased from 400 twice daily to 600 twice daily. Approximately 3 days ago prior to admission he noted right body numbness associated with dizziness and double vision. He was admitted to the hospital, his Tegretol level was noted to be elevated at 17.8, Tegretol has been held, his level is now improved to around 10 and he feels much better. Tried any other recent anticonvulsants, he says he has not been on Keppra. He sees a neurologist at the [facility] for his seizures. In addition to his once per day or twice seizures he also has suspicious nocturnal spells, he says he awakens in the morning with tongue biting or blood on his pillow. He has never had urinary incontinence with his seizures. Per admission H&P: The patient is a 56 year old M with past medical history as mentioned above presented to the emergency room because of dizziness, double vision and numbness on the right side of his body. His symptoms started 2 days ago with dizziness, described as feeling unsteady, about to fall, aggravated by standing up, associated with double vision that was intermittent and on the same day, he started having numbness and tingling on the right side of his face , right upper and lower extremities. He mentioned that has been having difficulties finding the words at the same time. He had a history of stroke in 1996 which left him with minimal left side facial droop as well as minimal weakness in the left side of his body. He mentioned that the numbness, tingling and minimal weakness in the right side is all new. He history of traumatic brain injury long time ago status post craniectomy. He had a history of seizure disorder secondary to the traumatic brain injury and he has been on Tegretol for seizure and he is not sure was he had a seizure episode. He had a history of stroke in 1996 with residual minimal left-sided facial droop and minimal weakness on the left upper and lower extremities. He history of renal cell carcinoma status post partial left nephrectomy. In the emergency room, his initial NIH score was 3. His blood pressure was around 160 systolic, other vital signs are stable. His routine blood work was unremarkable. EKG revealed normal sinus rhythm with normal IL interval, normal QRS, normal QTC and no acute ischemic changes. Troponin is negative. Pro time and INR were normal. CT scan brain showed no acute infarction or hemorrhage. Chest x-ray was normal , no infiltrate, consolidation or effusion. Tegretol level was 17.8 which is elevated. He is being admitted for right side paresthesia, ataxia for evaluation and also found to have Tegretol toxicity. Past Medical History Past Medical History (Chronic Problems): Chronic Problems History of renal cell carcinoma (Chronic) COPD (chronic obstructive pulmonary disease) (Chronic) CVA (cerebral vascular accident) (Chronic) Substance use disorder (Chronic) TBI (traumatic brain injury) (Chronic) Hepatitis C (Chronic) Seizure (Chronic) Allergies celecoxib [From Celebrex] Allergy (Verified 01/01/17 22:22) Unknown NSAIDS (Non-Steroidal Anti-Inflamma Allergy (Verified 01/01/17 22:22) Unknown phenytoin sodium [From Dilantin] Allergy (Verified 01/01/17 22:22) Unknown phenytoin sodium extended [From Dilantin] Allergy (Verified 01/01/17 22:22) Unknown pregabalin [From Lyrica] Allergy (Verified 01/01/17 22:22) Unknown quetiapine fumarate [From Seroquel] Allergy (Verified 01/01/17 22:22) Unknown tramadol Allergy (Verified 01/01/17 22:22) Unknown diclofenac Adverse Reaction (Verified 01/01/17 22:22) Rash divalproex sodium [From Depakote] Adverse Reaction (Verified 01/01/17 22:22) Unknown gabapentin [From Neurontin] Adverse Reaction (Verified 01/01/17 22:22) Unknown Home Medications: Ambulatory Orders Medication Instructions Recorded Carbamazepine [Tegretol] 400 mg PO BIDCM 01/08/13 Galantamine Hbr [Razadyne] 4 mg PO BIDCM 01/08/13 Buspirone HCl [Buspar] 15 mg PO BID 07/13/14 Lidocaine [Lidoderm Patch] 1 patch TOPICAL DAILY PRN PRN 05/07/15 Lorazepam [Ativan] 1 mg PO TID PRN PRN #7 tablet 08/11/14 Tamsulosin HCl [Flomax] 0.4 mg PO DAILY 01/01/17 Surgical History: - - Craniotomy, partial left nephrectomy for renal cell carcinoma. Psychiatric History: No pertinent psych hx Lives: Alone Smoking Status: Light Smoker (<10/day) Tobacco Use: Cigarettes Alcohol: Occasional Drugs: None - *Family History Maternal History Items: No pertinent history Paternal History Items: Stroke - father had a st Review of Systems Constitutional: Denies: Chills, Fever, Weight Change HEENT: Denies: Head Aches, Sinus Congestion, Sinus Drainage Cardiovascular: Denies: Chest Pain, Palpitations Respiratory: Denies: Cough, Shortness of breath at rest, Sputum production Gastrointestinal: Denies: Abdominal Pain, Nausea, Vomiting Genitourinary: Denies: Dysuria Musculoskeletal: Denies: Joint Pain, Joint Tenderness Skin: Denies: Rash, Wounds Neurological: Denies: Numbness, Tingling, Focal weakness Psychiatric: Denies: Anxiety, Depression, Homicidal Ideations, Suicidal Ideations Hematologic/ Lymphatic: Denies: Easy Bruising, Easy Bleeding - Physical Exam General: Alert, Oriented x3, Cooperative HEENT: Atraumatic, PERRLA, EOMI, Normocephalic Neck: Supple, No JVD, Negative Carotid Bruits Lungs: Clear to auscultation, Normal air movement Cardiovascular: Regular rate, No murmurs Abdomen: Bowel Sounds Present, Soft, Non Tender Extremities: No edema, Capillary Refill Less than 3 Seconds Skin: No rashes, No breakdown Musculoskeletal: No Tenderness to Palpation of Joints or Extremities Neurological: Cranial nerves II-XII grossly intact, - - Neurologic examination he is essentially intact he does have mild right-sided hyperreflexia Psych/Mental Status: Normal Affect, Appropriate Vital Signs Temp Pulse Resp BP Pulse Ox 36.5 C L 71 18 129/86 H 95 07/27/17 09:50 07/27/17 09:50 07/27/17 10:00 07/27/17 09:50 07/27/17 10:00 Oxygen Delivery Method Room Air Weight: 97 kg Body Mass Index (BMI) 31.6 Intake and Output for Last 24 Hours 04/21/18 04/22/18 04/23/18 23:59 23:59 23:59 Intake Total 1468 / 1468 574 / 574 Balance 1468 / 1468 574 / 574 Laboratory Tests Past 24 Hrs 07/27/17 07/27/17 05:15 05:15 Triglycerides 58 Cholesterol 190 LDL Cholesterol 80 VLDL Cholesterol 12 HDL Cholesterol 98 Carbamazepine 10.4 Laboratory Tests 07/26/17 07/26/17 07/26/17 11:40 11:40 11:40 WBC 6.0 RBC 3.93 L Hgb 13.6 Hct 41.7 MCV 106.1 H MCH 34.6 H MCHC 32.6 RDW 13.6 RDW Differential 53.0 H Plt Count 208 MPV 9.6 Immature Gran % (Auto) 0.700 Neut % (Auto) 76.0 H Lymph % (Auto) 12.3 L [place] % (Auto) 9.5 Eos % (Auto) 1.0 Baso % (Auto) 0.5 Absolute Neuts (auto) 4.6 Absolute Lymphs (auto) 0.74 L Total Counted Not Reportable PT 12.4 INR 0.9 APTT 23.4 L Sodium 138 Potassium 3.8 Chloride 103 Carbon Dioxide 29.0 Anion Gap 6 BUN 8 Creatinine 0.80 Estim Creat Clear Calc 105.56 Est GFR (MDRD) Af Amer 130 Est GFR (MDRD) Non-Af 107 BUN/Creatinine Ratio 10.0 Glucose 119 H Calcium 8.4 L Troponin I < 0.02 Triglycerides Cholesterol LDL Cholesterol VLDL Cholesterol HDL Cholesterol Carbamazepine POC Glucose 07/26/17 07/26/17 07/27/17 11:40 12:18 05:15 WBC RBC Hgb Hct MCV MCH MCHC RDW RDW Differential Plt Count MPV Immature Gran % (Auto) Neut % (Auto) Lymph % (Auto) [place] % (Auto) Eos % (Auto) Baso % (Auto) Absolute Neuts (auto) Absolute Lymphs (auto) Total Counted PT INR APTT Sodium Potassium Chloride Carbon Dioxide Anion Gap BUN Creatinine Estim Creat Clear Calc Est GFR (MDRD) Af Amer Est GFR (MDRD) Non-Af BUN/Creatinine Ratio Glucose Calcium Troponin I Triglycerides 58 Cholesterol 190 LDL Cholesterol 80 VLDL Cholesterol 12 HDL Cholesterol 98 Carbamazepine 17.8 H* POC Glucose 110 07/27/17 05:15 WBC RBC Hgb Hct MCV MCH MCHC RDW RDW Differential Plt Count MPV Immature Gran % (Auto) Neut % (Auto) Lymph % (Auto) [place] % (Auto) Eos % (Auto) Baso % (Auto) Absolute Neuts (auto) Absolute Lymphs (auto) Total Counted PT INR APTT Sodium Potassium Chloride Carbon Dioxide Anion Gap BUN Creatinine Estim Creat Clear Calc Est GFR (MDRD) Af Amer Est GFR (MDRD) Non-Af BUN/Creatinine Ratio Glucose Calcium Troponin I Triglycerides Cholesterol LDL Cholesterol VLDL Cholesterol HDL Cholesterol Carbamazepine 10.4 POC Glucose I reviewed the MRI of his brain, normal, nothing acute. Assessment/Plan Impression: Tegretol toxicity, resolved. MRI does not show anything acute. He should follow-up with his [facility] neurologist with whom he is already scheduled, I have suggested that Kimberly be considered since he continues to have seizures and he has symptoms suspicious nocturnal spells in addition. He should be discharged on his original dose of Tegretol 400 mg twice daily, no driving.
--- NOTE | 2017-07-27 13:35 | CASEMGMT ---
Face to Face with patient for initial transition planning/care coordination assessment. RN ROB introduced self and role at [facility], pt voices understanding and consents to assessment at this time. Pt is lying in bed in no distress at this time. Pt is A/Ox4 at this time and answers all questions appropriately at this time. Care providers, pharmacy, and demographics verified. See attached link. Pt voices no further concerns/needs at this time. Advised pt to ask for CM if any further questions/concerns/needs arise, voices understanding. CM to follow for any further discharge planning/needs. PLAN: [place] [facility]
--- NOTE | 2017-07-27 14:21 | PCM.DC ---
- Discharge Diagnoses Current Active Problems: Current Active and Chronic Problems History of renal cell carcinoma (Chronic) COPD (chronic obstructive pulmonary disease) (Chronic) You will use the following diet at home:: Cardiac Your food should be the consistency of: Regular Your liquids should be the consistency of: Regular/Thin Discharge Activity: May Not Drive Additional Instructions: You are not allowed to drive until cleared by a neurologist. Allergies/Adverse Reactions: Allergies celecoxib [From Celebrex] Allergy (Verified 01/01/17 22:22) Unknown NSAIDS (Non-Steroidal Anti-Inflamma Allergy (Verified 01/01/17 22:22) Unknown phenytoin sodium [From Dilantin] Allergy (Verified 01/01/17 22:22) Unknown phenytoin sodium extended [From Dilantin] Allergy (Verified 01/01/17 22:22) Unknown pregabalin [From Lyrica] Allergy (Verified 01/01/17 22:22) Unknown quetiapine fumarate [From Seroquel] Allergy (Verified 01/01/17 22:22) Unknown tramadol Allergy (Verified 01/01/17 22:22) Unknown diclofenac Adverse Reaction (Verified 01/01/17 22:22) Rash divalproex sodium [From Depakote] Adverse Reaction (Verified 01/01/17 22:22) Unknown gabapentin [From Neurontin] Adverse Reaction (Verified 01/01/17 22:22) Unknown Medications to take at Discharge Carbamazepine [Tegretol] 400 mg PO BIDCM 01/08/13 Galantamine Hbr [Razadyne] 4 mg PO BIDCM 01/08/13 Buspirone HCl [Buspar] 15 mg PO BID 07/13/14 Lidocaine [Lidoderm Patch] 1 patch TOPICAL DAILY PRN PRN 08/10/14 Lorazepam [Ativan] 1 mg PO TID PRN PRN #7 tablet 08/11/14 Tamsulosin HCl [Flomax] 0.4 mg PO DAILY 01/01/17 Aspirin [Aspirin, Baby] 81 mg PO DAILY@0800 tab.chew 07/27/17 Atorvastatin Calcium [Lipitor] 80 mg PO QHS #30 tab 07/27/17 The following prescriptions were given: Atorvastatin Calcium [Lipitor] 80 mg PO QHS #30 tab Primary Care Physician: Helder Camejo MD [Primary Care Provider] - Please follow up with your Primary Care Physician in: 1-2 weeks Please Follow Up With: Your own [facility] neurologist When: 1-2 weeks Proposed Discharge Date: 07/27/17
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
--- NOTE | 2017-07-27 14:42 | CASEMGMT ---
OLEGARIO spoke with patient regarding who his pillowcase sewer is with waiver program. He said it is Sharon Vieira and her number is [phone]. He asked if he was being d/c today and OLEGARIO told him he is being d/c. He said he will call for a ride. OLEGARIO called Sharon and let her know patient is being d/c today. OLEGARIO obtained her fax number and OLEGARIO will fax his d/c instructions. Plan: d/c home with resumption of waiver services. Melida GARCIA MSW
== END 2017-07-27 14:26 | disposition home or self-care (01) ==
LOC: ED 11:36 → PCU 13:45
PROVIDERS: Admitting Provider Hospitalist; Emergency Provider Emergency Medicine; Family Provider Family Medicine; PCP Family Medicine; Visit Provider Family Medicine
DX: R42 Dizziness and giddiness (principal); J44.9 Chronic obstructive pulmonary disease, unspecified; G40.909 Epilepsy, unspecified, not intractable, without status epilepticus; R20.2 Paresthesia of skin; I69.354 Hemiplegia and hemiparesis following cerebral infarction affecting left non-dominant side; I69.392 Facial weakness following cerebral infarction; H53.2 Diplopia; N40.0 Benign prostatic hyperplasia without lower urinary tract symptoms; F41.9 Anxiety disorder, unspecified; R47.01 Aphasia; F19.10 Other psychoactive substance abuse, uncomplicated; Z87.820 Personal history of traumatic brain injury; Z86.19 Personal history of other infectious and parasitic diseases; Z79.899 Other long term (current) drug therapy; Z85.528 Personal history of other malignant neoplasm of kidney; F17.210 Nicotine dependence, cigarettes, uncomplicated
CPT/HCPCS: 36415; 70450; 70544; 70549; 70551; 71045; 80048; 80061; 80156; 82962; 84484; 85025; 85610; 85730; 92523; 93005; 93306; 94640; 96360; 96361; 96372; 97162; 97165; 99218; 99283; 99406; A9585; J7030; A4216; G0378

== ENCOUNTER 2019-08-25 17:33 | Observation (INO) | payer MEDICAID, SELFPAY ==
[2019-08-25] VITALS (8 sets, daily range): BP systolic 92–145; BP diastolic 72–85; PULSE 76–96; RESP 20–24; TEMP 36.6–36.9; O2SAT 94–99; BMI 34.8; BMI 34.4; BMI 34.5
--- NOTE | 2019-08-25 18:00 | ED.RN ---
pt comes in via EMS and has intermittent episodes of unresponsiveness. pt unable to be aroused with sternal rub or painful stimuli. episodes happen frequently and can last for a minute or longer. when pt arouses he answers questions appropriately.
--- NOTE | 2019-08-25 18:02 | CT_ITS ---
STUDY: CT BRAIN WITHOUT CONTRAST REASON FOR EXAM: Male, 58 years old. Seizure, hx of CVA, hypertension, craniotomy. RADIATION DOSAGE (If Supplied By Facility): CTDIvol = ( 44.99 ) mGy, DLP = ( 829.85 ) mGycm TECHNIQUE: Transaxial CT imaging of the brain was performed without administration of intravenous contrast material. Individualized dose optimization techniques were used for this CT. COMPARISON: 07/26/2017 FINDINGS: Normal soft tissue structures. Stable craniotomy changes of the left temporal bone. Otherwise normal calvarium. Normal size ventricles and extra-axial spaces for the patient''s age. Normal white matter tracts of the cerebral hemispheres. Normal basal ganglia and thalami. Normal brainstem. Normal cerebellum. Stable focal area of encephalomalacia in the left temporal lobe directly under the craniotomy. There is no intracranial hemorrhage. There are no findings of an acute ischemic infarction. Normal visualized paranasal sinuses. CT/Brain/Head without Contrast IMPRESSION: No change and no acute abnormality. Electronically Signed: Hemal Holley MD at 19:11 EDT , Service support ,
--- NOTE | 2019-08-25 18:02 | EKG12_ITS ---
Test Reason : SOB Blood Pressure : / mmHG Vent. Rate : 083 BPM Atrial Rate : 083 BPM P-R Int : 182 ms QRS Dur : 078 ms QT Int : 402 ms P-R-T Axes : 021 -42 042 degrees QTc Int : 472 ms Normal sinus rhythm Left axis deviation Septal infarct , age undetermined Abnormal ECG Confirmed by CRISTAL CORDERO, CHAZ ([id number]), commercial production editor LETY PUENTES ([id number]) on 08/30/2019 2:15:51 PM Referred By: BETI/HONORIO Confirmed By:CHAZ BEE MD
--- NOTE | 2019-08-25 18:02 | RAD_ITS ---
STUDY: X-RAY CHEST REASON FOR EXAM: Male, 58 years old. SEIZURES TECHNIQUE: Single AP portable view of the chest. COMPARISON: 07/26/2017. FINDINGS: The lungs are clear and expanded. There is no demonstrated pleural abnormality. Normal size heart. Normal mediastinum and anita. Normal visualized pulmonary arteries. Normal visualized aortic arch and descending thoracic aorta. Normal visualized thoracic spine. Normal visualized ribs, clavicles, and shoulders. There is no demonstrated abnormality of the visualized soft tissue structures of the upper abdomen. RAD/Chest 1 View (Portable) IMPRESSION: Normal x-ray examination of the chest. Electronically Signed: Hemal Holley MD at 19:14 EDT , Service support ,
[2019-08-25] MEDS: 0.9% Normal Saline 1,000 ML 150 ML IV (18:10)
[2019-08-25] MEDS: LORazepam 2 MG/ML Syringe 1 MG IV (18:10)
[2019-08-25] MEDS: Albuterol 2.5 MG/3 ML VIAL.NEB. INHALATION ×2 (18:15→18:17)
--- NOTE | 2019-08-25 18:15 | ED.RN ---
tried calling pts home nurse. no answer. message was left.
[2019-08-25 18:22] LABS: Absolute Lymphocyte Count 2.67 X10^3/uL (0.83-4.51); Absolute Neutrophil Count 4.4 X10^3/uL (2.0-7.7); Basophil% 1.2 % (0-1); Eosinophil# 0.37 X10^3/uL; Eosinophils% 4.6 % (0-5); Hematocrit 40.9 % (40-54); Hemoglobin 13.2 g/dL (13.0-16.5); Lymphocyte # 2.67 X10^3/ul (4.0); Lymphocyte % 32.8 % (19-41); Mean Corp Hgb Conc 32.3 g/dL (32-36); Mean Corpuscular Hgb 34.7 pg (27.0-32.0); Mean Corpuscular Volume 107.6 fL (80-94); Monocyte% 7.4 % (0-10); NRBC Flagged by Analyzer 0 % (0-5); Neutrophil # 4.36 X10^3/uL (2.7-7.7); Neutrophil % 53.6 % (47-70); Platelet Count 269 K/mm3 (150-450); RBC Distribution Width CV 14.5 % (11.6-14.6); RBC Distribution Width SD 56.5 fl (35.1-43.9); White Blood Count 8.1 K/mm3 (4.4-11.0)
[2019-08-25 18:26] LABS: Base Excess 4 mmol/L (-2 to +2); PO2 110 mmHG (75-100); SO2 98 % (95-99); Total Carbon Dioxide 31 mmol/L; pCO2 51.1 mmHg (35-45); pH 7.36 (7.35-7.45)
[2019-08-25 18:29] LABS: Allen Test POS; Blood Gas Specimen Type ART; SITE R RADIAL
[2019-08-25 18:30] LABS: LPM 3.5 /min; O2 Delivery Device Nasal Can; Time Given 1815
[2019-08-25 18:50] LABS: ALB/GLOB Ratio 0.6 RATIO (0.9-2.4); AST(SGOT) 196 U/L (15-37); Alanine Aminotransfer ALT/SGPT 54 U/L (16-61); Albumin, Serum 3.2 g/dL (3.2-5.0); Alkaline Phosphatase 209 U/L (45-117); Anion Gap 7 (5-15); BUN 5 mg/dL (7-18); BUN/Creat Ratio 7.9 RATIO (10-20); Calcium,Total 8.3 mg/dL (8.5-10.1); Chloride 103 mmol/L (98-107); Creatinine, Serum 0.63 mg/dL (0.70-1.30); EST Glomerular Filtration Rate 139 mL/min (>60); Est Glom Filt Rate - Afr Amer 168 mL/min (>60); Estimated Creatinine Clearance 130.93 ml/min; Globulin 5.6 g/dL (2.2-4.2); Glucose 102 mg/dL (74-106); Protein, Total 8.8 g/dL (6.4-8.2); Sodium Level 141 mmol/L (136-145)
--- NOTE | 2019-08-25 18:59 | ED.VISSUMM ---
- ER Visit Summary Date of Service: 08/25/19 Chief Complaint: [Seizure] History of Present Illness: The patient is a 58 M [presents to the emergency department with possible seizure that occurred today while at home. called the squad. On EMS arrival patient was somewhat postictal. Patient has history of alcohol abuse. Patient has been drinking today. Unclear if he is had seizure history before. Patient on arrival to the emergency department apparently had an episode where he became somewhat unresponsive and it was thought on monitor that he may have had a short run of V. tach. My interview with the patient he is answering questions appropriately. He is complaining of some abdominal discomfort as well as some shortness of breath that he has had a cough and intermittent fever. Patient has history of COPD. No known COVID-19 exposures. Patient has history of COPD and coronary artery disease. He has no cardiac intervention such as stent or bypass history. Patient is a poor historian. He does smell of alcohol.] Physical Examination: [HEENT-PERRLA, EOMI. Cranial nerves II through XII grossly intact. TMs clear. Mucous membranes moist. No adenopathy. Cardiovascular-regular rate and rhythm without murmur or ectopy Lungs-clear to auscultation, chest wall stable without crepitus or subcu emphysema Abdomen-normoactive bowel sounds, soft, nontender, no rebound or rigidity, no peritoneal signs. Extremities-intact ?4, normal range of motion, normal pulses, atraumatic] Test Results: [CBC with differential obtained showed a normal white count of 8.1, hemoglobin 13, hematocrit 41, placed to 69. Chemistries unremarkable. Troponin less than 0.015. EKG obtained arrival showed a sinus rhythm with a ventricular rate of 83 bpm with no acute ST segment changes. CT scan of the brain without contrast read by myself as no acute hemorrhage or anything significant however official report pending from radiology. Chest x-ray on my interpretation shows nothing acute however official report from radiology pending.] Alcohol level was elevated at 414. Total level pending. Emergency Department Course and Treatment: [An IV line established. Patient was given a milligram of Ativan on arrival. After later discussion with the patient he does state that he has had seizures before and he is on Tegretol for them.] Treatment Plan: Admit for observation.] Disposition: [Admit] Impression: [Alcohol intoxication Seizure by history] This note was generated with Saisei dictation software. It may contain incorrect words, spelling, and punctuation that were not noted in review of the chart prior to signing ED Disposition - Plan for ED Patient: Referrals: Helder Camejo MD [Primary Care Provider] -
[2019-08-25 19:28] LABS: Carbamazepine (Tegretol) 6.5 ug/mL (4.0-12.0)
--- NOTE | 2019-08-25 19:41 | ED.RN ---
called Flory Costa per pts request. no answer again.
--- NOTE | 2019-08-25 19:59 | PCM.HP.STD ---
Problem List (1) COPD (chronic obstructive pulmonary disease) Status: Chronic (2) CVA (cerebral vascular accident) Status: Chronic (3) Hepatitis C Status: Chronic (4) History of renal cell carcinoma Status: Chronic (5) Seizure Status: Acute (6) Substance use disorder Status: Chronic (7) TBI (traumatic brain injury) Status: Chronic History of Present Illness Date of Admission: 08/25/19 Chief Complaint: seizure The patient is a 58 year old M with a significant history of traumatic brain injury; seizure disorder; and ethanol abuse who presented to the emergency department with reported seizure. Reportedly patient was postictal when the EMS arrived. Patient reported that he has been having multiple seizures recently. Upon interviewing patient's home nurse (Flory Costa [phone]), home nurse reported that last time patient had seizures was many years ago. Home health nurse was finding it difficult to believe that patient might of had a seizures. Upon interviewing (Rody [phone]) who does not live with a patient, reported that the last time that patient had a seizure was many years ago. does not live with patient but she has multiple conversations over the phone with patient. can not confirm patient had a seizure. Reportedly did not call paramedics to report hat patient had a seizure. Reportedly patient has some rescue dogs and cats who can operate help button for patient when instructed. Patient sees Dr. Meadows, neurologist at [facility] for seizures. Past Medical History Past Medical History (Chronic Problems): Chronic Problems History of renal cell carcinoma (Chronic) COPD (chronic obstructive pulmonary disease) (Chronic) CVA (cerebral vascular accident) (Chronic) Substance use disorder (Chronic) TBI (traumatic brain injury) (Chronic) Hepatitis C (Chronic) Allergies celecoxib [From Celebrex] Allergy (Verified 08/25/19 18:06) Unknown NSAIDS (Non-Steroidal Anti-Inflamma Allergy (Verified 08/25/19 18:06) Unknown phenytoin sodium [From Dilantin] Allergy (Verified 08/25/19 18:06) Unknown phenytoin sodium extended [From Dilantin] Allergy (Verified 08/25/19 18:06) Unknown pregabalin [From Lyrica] Allergy (Verified 08/25/19 18:06) Unknown quetiapine fumarate [From Seroquel] Allergy (Verified 08/25/19 18:06) Unknown tramadol Allergy (Verified 08/25/19 18:06) Unknown diclofenac Adverse Reaction (Verified 08/25/19 18:06) Rash divalproex sodium [From Depakote] Adverse Reaction (Verified 08/25/19 18:06) Unknown gabapentin [From Neurontin] Adverse Reaction (Verified 08/25/19 18:06) Unknown Home Medications: Ambulatory Orders Medication Instructions Recorded Carbamazepine [Tegretol] 400 mg PO BIDCM 01/08/13 Galantamine Hbr [Razadyne] 4 mg PO BIDCM 01/08/13 Buspirone HCl [Buspar] 15 mg PO BID 07/13/14 Lidocaine [Lidoderm Patch] 1 patch TOPICAL DAILY PRN PRN 08/10/14 Lorazepam [Ativan] 1 mg PO TID PRN PRN #7 tablet 08/11/14 Tamsulosin HCl [Flomax] 0.4 mg PO DAILY 01/01/17 Aspirin [Aspirin, Baby] 81 mg PO DAILY@0800 tab.chew 07/27/17 Albuterol IH (ProAir) [Proair Hfa] 1 puff INHALATION Q6H PRN PRN 08/25/19 Albuterol Sulfate [Albuterol 1 amp INHALATION Q4H PRN PRN 08/25/19 Sulfate HFA] Fluticasone/Salmeterol [Advair 1 blist INHALATION BID 08/25/19 500-50 Diskus] Ipratropium/Albuterol Sulfate 1 amp INHALATION Q4H PRN PRN 08/25/19 [Duoneb] Protonix 40 mg PO DAILY 08/25/19 Surgical History: - - Craniotomy, partial left nephrectomy for renal cell carcinoma. Psychiatric History: Anxiety, Depression Smoking Status: Current every day smoker Tobacco Use: Cigarettes Alcohol: Heavy - *Family History Maternal History Items: Cancer Paternal History Items: Cancer, Stroke Review of Systems Constitutional: Denies: Chills, Fever, Weight Change HEENT: Denies: Head Aches, Sinus Congestion, Sinus Drainage Cardiovascular: Denies: Chest Pain, Palpitations Respiratory: Reports: Cough - Chronic, Shortness of Breath - Chronic. Denies: Shortness of breath at rest Gastrointestinal: Denies: Abdominal Pain, Nausea, Vomiting Genitourinary: Denies: Dysuria Musculoskeletal: Denies: Joint Pain, Joint Tenderness Skin: Denies: Rash, Wounds Neurological: Reports: Seizures. Denies: Focal weakness, Numbness, Tingling Psychiatric: Reports: Anxiety, Depression. Denies: Homicidal Ideations, Suicidal Ideations Hematologic/ Lymphatic: Denies: Easy Bruising, Easy Bleeding VTE Information - Inpt Only VTE Present on Admission: No VTE Mechan Device Prophylaxis: None VTE Pharm Prophylaxis ordered?: Yes - Physical Exam Vitals/I&O's: Vital Signs Temp Pulse Resp BP Pulse Ox 98.5 F 79 20 H 92/75 95 08/25/19 19:35 08/25/19 19:35 08/25/19 19:35 08/25/19 19:35 08/25/19 19:35 Oxygen Flow Rate (L/min) 2 Oxygen Delivery Method Nasal Cannula Weight: 107 kg Body Mass Index (BMI) 34.8 Finger Stick Blood Glucose 110 General: Alert, Oriented x3, Cooperative HEENT: Atraumatic, PERRLA, EOMI, Normocephalic Neck: Supple, No JVD, Trachea Midline Lungs: Tachypneic, Wheezes Cardiovascular: Regular rate, Normal S1, Normal S2, No murmurs Abdomen: Bowel Sounds Present, Soft, Non Tender Extremities: No edema, Capillary Refill Less than 3 Seconds Skin: No rashes, No breakdown Musculoskeletal: No Tenderness to Palpation of Joints or Extremities Neurological: Cranial nerves II-XII grossly intact Psych/Mental Status: Normal Affect, Appropriate Laboratory Results 08/25/19 17:55: WBC 8.1, RBC 3.80 L, Hgb 13.2, Hct 40.9, MCV 107.6 H, MCH 34.7 H, MCHC 32.3, RDW Std Deviation 56.5 H, RDW Coeff of Jass 14.5, Plt Count 269, MPV 10.0, Immature Gran % (Auto) 0.400, Neut % (Auto) 53.6, Lymph % (Auto) 32.8, [facility] % (Auto) 7.4, Eos % (Auto) 4.6, Baso % (Auto) 1.2 H, Absolute Neuts (auto) 4.4, Absolute Lymphs (auto) 2.67, Nucleated RBC % 0 08/25/19 17:55: Sodium 141, Potassium 4.0, Chloride 103, Carbon Dioxide 31.0, Anion Gap 7, BUN 5 L, Creatinine 0.63 L, Estim Creat Clear Calc 130.93, Est GFR (MDRD) Af Amer 168, Est GFR (MDRD) Non-Af 139, BUN/Creatinine Ratio 7.9 L, Glucose 102, Calcium 8.3 L, Total Bilirubin 0.70, AST 196 H, ALT 54, Alkaline Phosphatase 209 H, Troponin I < 0.015, Total Protein 8.8 H, Albumin 3.2, Globulin 5.6 H, Albumin/Globulin Ratio 0.6 L 08/25/19 17:55: Ethyl Alcohol 414.0 H* 08/25/19 17:55: Carbamazepine 6.5 08/25/19 18:15: Specimen Type ART, Sample Site R RADIAL, pH 7.36, Bicarbonate Actual 29.0 H, POC Total CO2 31, Base Excess 4 H, O2 Saturation 98, ABG pCO2 51.1 H, ABG pO2 110 H, Javier Test POS, O2 Delivery Device Nasal Can, Liter Flow 3.5, Blood Gas Notified Whom ED MD, Blood Gas Notified Time 1815 Current Medications Buspirone HCl (Buspar) 15 mg PO BID [facility] Dicyclomine HCl (Bentyl) 20 mg PO Q6H PRN PRN PRN Reason: abdominal discomfort Folic Acid (Folic Acid) 1 mg PO DAILY@0800 [facility] Hydroxyzine Pamoate (Vistaril Pamoate Capsule) 50 mg PO Q4H PRN PRN PRN Reason: mild anxiety Sodium Chloride () 1,000 mls @ 150 mls/hr IV .Q6H40M [facility] Last Admin: 08/25/19 18:10 Dose: 150 mls/hr Documented by: Loperamide HCl (Imodium) 2 mg PO Q4H PRN PRN PRN Reason: LOOSE STOOLS Lorazepam (Ativan) 0 mg PO [facility]; Taper Stop: 08/30/19 03:44 Lorazepam (Ativan) 2 mg IV X1 PRN PRN Reason: SEIZURES Multivitamins ([facility]itamin) [facility] Tamsulosin HCl (Flomax) 0.4 mg PO DAILY@1730 [facility] Thiamine HCl (Vitamin B1) 100 mg PO DAILYCM [facility] Trazodone HCl (Desyrel) 100 mg PO QHS PRN PRN Reason: INSOMNIA Assessment/Plan All Active Problems Seizure (Acute) The patient is a 58 year old M with a significant history of traumatic brain injury; seizure disorder; and ethanol abuse who presented to the emergency department with reported seizure; and found to have an alcohol level of 414. Seizures It is unclear whether patient indeed had a seizure. His Tegretol level obtained at the emergency department was normal. He reports allergy to multiple seizure medications. We will continue home Tegretol. Will get a prolactin level. We will get EEG. CT brain at the emergency department was unremarkable. Alcohol abuse We will place on CIWA protocol with Ativan taper. Thiamine; and folic acid ordered Memory loss Galantamine continued. COPD Does not appear to be in exacerbation. Placed on scheduled DuoNeb and albuterol as needed. Tobacco abuse Patient smokes about 50 years. Now he has cut back to 1 pack for 3 days. Counseled. DVT prophylaxis Subcutaneous Lovenox. OBSV E&M: 84163 Initial observation care L3
[2019-08-25 21:29] LABS: Prolactin 32.9 ng/mL
[2019-08-25] MEDS: carBAMazepine 200 MG Tablet 400 MG PO (22:57)
[2019-08-25] MEDS: LORazepam 1 MG Tablet PO (22:57)
[2019-08-25] MEDS: busPIRone 15 MG TABLET PO (22:58)
[2019-08-25] MEDS: Galantamine Hydrobromide 4 MG Tablet PO (22:58)
[2019-08-26] VITALS (13 sets, daily range): BP systolic 147–159; BP diastolic 75–88; PULSE 75–95; RESP 16–20; TEMP 36.8–36.9; O2SAT 88–95
[2019-08-26] MEDS: Ipratropium/Albuterol Sulfate 3 ML AMPUL.NEB INHALATION ×4 (01:59→19:36)
[2019-08-26] MEDS: LORazepam 1 MG Tablet PO ×6 (02:21→23:09)
[2019-08-26 07:14] LABS: Absolute Lymphocyte Count 0.78 X10^3/uL (0.83-4.51); Absolute Neutrophil Count 5.6 X10^3/uL (2.0-7.7); Basophil# 0.06 X10^3/uL; Basophil% 0.8 % (0-1); Eosinophil# 0.18 X10^3/uL; Eosinophils% 2.5 % (0-5); Hematocrit 35.2 % (40-54); Hemoglobin 11.4 g/dL (13.0-16.5); Lymphocyte # 0.78 X10^3/ul (4.0); Lymphocyte % 10.7 % (19-41); Mean Corp Hgb Conc 32.4 g/dL (32-36); Mean Corpuscular Hgb 34.1 pg (27.0-32.0); Mean Corpuscular Volume 105.4 fL (80-94); Mean Platelet Vol. 9.8 fl (6.2-12.0); Monocyte# 0.66 X10^3/uL; NRBC Flagged by Analyzer 0 % (0-5); Neutrophil # 5.58 X10^3/uL (2.7-7.7); Neutrophil % 76.5 % (47-70); Platelet Count 220 K/mm3 (150-450); RBC Distribution Width SD 53.5 fl (35.1-43.9); Red Blood Count 3.34 M/mm3 (4.6-6.2); White Blood Count 7.3 K/mm3 (4.4-11.0)
[2019-08-26] MEDS: Galantamine Hydrobromide 4 MG Tablet PO ×2 (07:38→18:02)
[2019-08-26] MEDS: Folic Acid 1 MG Tablet PO (07:39)
[2019-08-26] MEDS: carBAMazepine 200 MG Tablet 400 MG PO ×2 (07:39→18:02)
[2019-08-26] MEDS: Multivitamins,Therapeutic Tablet 1 TABLET PO (07:39)
[2019-08-26] MEDS: busPIRone 15 MG TABLET PO ×2 (07:40→21:25)
[2019-08-26 07:41] LABS: Anion Gap 8 (5-15); BUN 6 mg/dL (7-18); BUN/Creat Ratio 9.1 RATIO (10-20); Calcium,Total 8.1 mg/dL (8.5-10.1); Chloride 104 mmol/L (98-107); Creatinine, Serum 0.66 mg/dL (0.70-1.30); EST Glomerular Filtration Rate 133 mL/min (>60); Est Glom Filt Rate - Afr Amer 161 mL/min (>60); Estimated Creatinine Clearance 124.97 ml/min; Glucose 99 mg/dL (74-106); Potassium 3.6 mmol/L (3.5-5.1); Sodium Level 140 mmol/L (136-145)
[2019-08-26] MEDS: Thiamine Hydrochloride 100 MG Tablet PO (07:41)
[2019-08-26] MEDS: Enoxaparin 40 MG/0.4 ML Syringe SC (07:41)
[2019-08-26] MEDS: Acetaminophen 325 MG Tablet 650 MG PO (07:45)
[2019-08-26] MEDS: Tamsulosin HCl 0.4 MG Capsule PO (10:26)
--- NOTE | 2019-08-26 10:54 | CASEMGMT ---
This NATALIE RIVAS received call from Sharon, pt's waiver CM, at this time and she states that pt has 36 hours of aide services/week, meals, and a life alert thru them. Sharon's contact info [phone]. Sharon would like notified when pt discharged. Alin ESTRADA CM
--- NOTE | 2019-08-26 11:57 | PN_ITS ---
Subjective: Patient seen and examined. He was admitted with a complaint of seizure. Patient has a history of traumatic brain injury and seizure disorder as well as alcohol abuse. He was reportedly postictal when he was told by the EMS. Patient tells me that he has had this seizure about 2 3 years ago but when I informed him that his and home nurse that he had a seizure many years ago he said he did not think his memory was very good and that I should take what his and home nurse said. He also states he had a bit of a drink yesterday but on further inquiry, admitted to drinking about a pint of [place] whiskey. Review of systems otherwise negative. Alcohol level on admission was 414. Labs and vitals reviewed today. Vitals/I&O's: Vital Signs Temp Pulse Resp BP Pulse Ox 98.4 F 89 18 147/88 H 93 08/26/19 07:46 08/26/19 07:46 08/26/19 07:46 08/26/19 07:46 08/26/19 07:46 Oxygen Flow Rate (L/min) 2 Oxygen Delivery Method Nasal Cannula Weight: 233 lb 11.04 oz Body Mass Index (BMI) 34.4 Finger Stick Blood Glucose 110 Intake and Output for Last 24 Hours 08/24/19 08/25/19 08/26/19 23:59 23:59 23:59 Intake Total 1140 / 1140 400 / 400 Output Total 300 / 300 Balance 1140 / 1140 100 / 100 General: Alert, Oriented x3, Cooperative, No apparent distress HEENT: Atraumatic, PERRLA, EOMI, Normocephalic Oral: Dry Mucosa Neck: Supple, No JVD, Negative Carotid Bruits Lungs: Clear to auscultation, Normal air movement, No rhonchi, No wheeze, No rales Cardiovascular: Regular rate, Regular Rhythm, Normal S1, Normal S2, No murmurs Abdomen: Bowel Sounds Present, Soft, Non Tender, Non-Distended, No Hepato- splenomegaly Extremities: No clubbing, No cyanosis, No edema, Capillary Refill Less than 3 Seconds Skin: No rashes, No breakdown Musculoskeletal: No Tenderness to Palpation of Joints or Extremities Lymphatic: No Cervical, Supraclavicular, or Inguinal Adenopathy Neurological: Cranial nerves II-XII grossly intact, Neuro grossly intact, Motor Exam 5/5 strength throughout Psych/Mental Status: Normal Affect, Appropriate, Alert and oriented to time, place, person, mood and affect Laboratory Results 08/25/19 17:55: WBC 8.1, RBC 3.80 L, Hgb 13.2, Hct 40.9, MCV 107.6 H, MCH 34.7 H , MCHC 32.3, RDW Std Deviation 56.5 H, RDW Coeff of Jass 14.5, Plt Count 269, MPV 10.0, Immature Gran % (Auto) 0.400, Neut % (Auto) 53.6, Lymph % (Auto) 32.8, Christian % (Auto) 7.4, Eos % (Auto) 4.6, Baso % (Auto) 1.2 H, Absolute Neuts (auto) 4.4, Absolute Lymphs (auto) 2.67, Nucleated RBC % 0 08/25/19 17:55: Sodium 141, Potassium 4.0, Chloride 103, Carbon Dioxide 31.0, Anion Gap 7, BUN 5 L, Creatinine 0.63 L, Estim Creat Clear Calc 130.93, Est GFR (MDRD) Af Amer 168, Est GFR (MDRD) Non-Af 139, BUN/Creatinine Ratio 7.9 L, Glucose 102, Calcium 8.3 L, Total Bilirubin 0.70, AST 196 H, ALT 54, Alkaline Phosphatase 209 H, Troponin I < 0.015, Total Protein 8.8 H, Albumin 3.2, Globulin 5.6 H, Albumin/Globulin Ratio 0.6 L 08/25/19 17:55: Ethyl Alcohol 414.0 H* 08/25/19 17:55: Carbamazepine 6.5 08/25/19 17:55: Prolactin 32.9 08/25/19 18:15: Specimen Type ART, Sample Site R RADIAL, pH 7.36, Bicarbonate Actual 29.0 H, POC Total CO2 31, Base Excess 4 H, O2 Saturation 98, ABG pCO2 51.1 H, ABG pO2 110 H, Javier Test POS, O2 Delivery Device Nasal Can, Liter Flow 3.5, Blood Gas Notified Whom ED , Blood Gas Notified Time 1815 08/26/19 07:01: WBC 7.3, RBC 3.34 L, Hgb 11.4 L, Hct 35.2 L, MCV 105.4 H, MCH 34.1 H, MCHC 32.4, RDW Std Deviation 53.5 H, RDW Coeff of Jass 14.0, Plt Count 220, MPV 9.8, Immature Gran % (Auto) 0.500, Neut % (Auto) 76.5 H, Lymph % (Auto) 10.7 L, Christian % (Auto) 9.0, Eos % (Auto) 2.5, Baso % (Auto) 0.8, Absolute Neuts (auto) 5.6, Absolute Lymphs (auto) 0.78 L, Nucleated RBC % 0 08/26/19 07:01: Sodium 140, Potassium 3.6, Chloride 104, Carbon Dioxide 28.0, Anion Gap 8, BUN 6 L, Creatinine 0.66 L, Estim Creat Clear Calc 124.97, Est GFR (MDRD) Af Amer 161, Est GFR (MDRD) Non-Af 133, BUN/Creatinine Ratio 9.1 L, Glucose 99, Calcium 8.1 L Diagnostic Data Brain CT 08/25/19 18:02 IMPRESSION: No change and no acute abnormality. Electronically Signed: Hemal Holley MD at 19:11 EDT , Service support , Chest X-Ray 08/25/19 18:02 IMPRESSION: Normal x-ray examination of the chest. Electronically Signed: Hemal Holley MD at 19:14 EDT , Service support , Current Medications Acetaminophen (Tylenol) 650 mg PO Q6H PRN PRN PRN Reason: Pain Score 1-10/Temp > 100.7 F Last Admin: 08/26/19 07:45 Dose: 650 mg Documented by: Albuterol Sulfate (Ventolin Aerosols) 2.5 mg INHALATION Q2H PRN PRN PRN Reason: sob/wheezing Albuterol/Ipratropium (Duoneb) 3 ml INHALATION Q6HWA.RT SCOTTIE Last Admin: 08/26/19 07:37 Dose: 3 ml Documented by: Buspirone HCl (Buspar) 15 mg PO BID [facility] Last Admin: 05/22/20 07:40 Dose: 15 mg Documented by: [facility]) [facility] Last Admin: 08/26/19 07:39 Dose: 400 mg Documented by: Dextrose (D50w Syringe) 0 gm IV X1 PRN; Protocol PRN Reason: Hypoglycemia Dicyclomine HCl (Bentyl) 20 mg PO Q6H PRN PRN PRN Reason: abdominal discomfort Enoxaparin Sodium (Lovenox) 40 mg SC DAILY [facility] Last Admin: 08/26/19 07:41 Dose: 40 mg Documented by: Folic Acid (Folic Acid) 1 mg PO DAILY@0800 [facility] Last Admin: 08/26/19 07:39 Dose: 1 mg Documented by: Galantamine Hydrobromide (Razadyne) [facility] Last Admin: 08/26/19 07:38 Dose: 4 mg Documented by: Glucagon () 1 mg IM .X1 PRN PRN Reason: Hypoglycemia Hydroxyzine Pamoate (Vistaril Pamoate Capsule) 50 mg PO Q4H PRN PRN PRN Reason: mild anxiety Sodium Chloride () 250 mls @ 15 mls/hr IV .[id number] PRN PRN Reason: Saline Flush Sodium Chloride () 250 mls @ 15 mls/hr IV .[id number] PRN PRN Reason: Additional IVPB Infusion Loperamide HCl (Imodium) 2 mg PO Q4H PRN PRN PRN Reason: LOOSE STOOLS Lorazepam (Ativan) 2 mg IV X1 PRN PRN Reason: SEIZURES Lorazepam (Ativan) 2 mg PO Q4H [facility]; Taper Stop: 08/30/19 06:59 Last Admin: 08/26/19 10:26 Dose: 2 mg Documented by: Multivitamins (Multivitamin) [facility] Last Admin: 08/26/19 07:39 Dose: 1 tablet Documented by: Ondansetron HCl (Zofran) 4 mg IV Q8H PRN PRN PRN Reason: NAUSEA/VOMITING Sodium Chloride () 10 - 40 ml IV UD PRN PRN Reason: SALINE FLUSH Tamsulosin HCl (Flomax) 0.4 mg PO DAILY [facility] Last Admin: 08/26/19 10:26 Dose: 0.4 mg Documented by: Thiamine HCl (Vitamin B1) [facility] Last Admin: 08/26/19 07:41 Dose: 100 mg Documented by: Trazodone HCl (Desyrel) 100 mg PO QHS PRN PRN Reason: INSOMNIA Medical Necessity - Tobacco Use Smoking Status: Current every day smoker Tobacco Use: Cigarettes Assessment/Plan All Active Problems Seizure (Acute) 1. Seizures * tegretol level on admission was normal. Patient says he thinks he had a seizure, but this was unwitnessed. he was found in a post ictal state * EEG is pending * CT of of the brain showed no acute intracranial process * on Tegretol. says he is allergic to all other seizure meds except tegretol. follows with a neurologist at [facility]. * alcohol level was high as well, adn corwin seizures may have been precipitated by alcohol * seizure precautions. fall precautions * PT/OT consult * 2. Alcohol abuse * at risk of withdrawal * drinks 1 pint of whiskey daily * on alcohol withdrawal protocol with ativan * on thiamine, folic acid and multivites * monitor CIWA score * 3. Traumatic brain injury with memory loss * on galantamine * 4. COPD exacerbation: * has expiratory wheezing and rhonchi in all lung metzger. on 3L of oxygen, though he is not on oxygen at home * on breathing treatment with bronchodilators * start IV solumedrol 40mg q8 5. Nicotine dependence: counseled to quit. Nicotine patch 21mg daily DVT prophylaxis: lovenox. OBSV E&M: 39827 Subsequent observation care L3
[2019-08-26] MEDS: 0.9% Saline Lock 10 ML Syringe IV ×2 (13:17→21:26)
--- NOTE | 2019-08-26 13:47 | NURSING ---
This RN talked to pt's Rody on the phone and gave her an update on the pt with the pt's permission.
--- NOTE | 2019-08-26 15:06 | CASEMGMT ---
Social Work SW met with pt in room and introduced self to pt. Pt confirms he has Waiver services and Sharon Vieira is CM. PT stating he has home health aides 7xweek for 5 hours a day. He also receives meals and has a medical alert. Pt states that his home health aid is Flory Costa who is listed as contact on his demographic sheet. SW inquired with pt about alcohol use. Pt down plays amount of alcohol consumed. When SW inquired about alcohol level at time of admission, pt did state that he probably had a pint of whisky. Pt also states that his alcohol use is not nearly as bad as his drug problem was. Pt admits to using drugs but has been clean for 7 years and pt utilized the [facility] program. SW offered resources for alcohol use but pt denied resources stating he has the phone number at home for programs and will call them if he wants help. Home health aides to resume through the Waiver program at time of discharge. PHILIP Newton
[2019-08-27] VITALS (16 sets, daily range): BP systolic 137–149; BP diastolic 57–84; PULSE 65–93; RESP 18–22; TEMP 36.5–36.7; O2SAT 92–97
[2019-08-27] MEDS: Acetaminophen 325 MG Tablet 650 MG PO (01:23)
[2019-08-27] MEDS: Ipratropium/Albuterol Sulfate 3 ML AMPUL.NEB INHALATION ×6 (02:06→22:28)
[2019-08-27] MEDS: LORazepam 1 MG Tablet PO ×6 (03:19→22:46)
[2019-08-27] MEDS: 0.9% Saline Lock 10 ML Syringe IV ×3 (05:08→22:26)
[2019-08-27 08:45] LABS: Absolute Neutrophil Count 6.4 X10^3/uL (2.0-7.7); Basophil# 0.01 X10^3/uL; Basophil% 0.1 % (0-1); Differential Indicated SCAN CRITERIA MET; Hematocrit 36.4 % (40-54); Hemoglobin 11.9 g/dL (13.0-16.5); Lymphocyte % 5.7 % (19-41); Mean Corp Hgb Conc 32.7 g/dL (32-36); Mean Corpuscular Hgb 33.9 pg (27.0-32.0); Mean Corpuscular Volume 103.7 fL (80-94); Mean Platelet Vol. 10.5 fl (6.2-12.0); Monocyte# 0.17 X10^3/uL; Monocyte% 2.4 % (0-10); NRBC Flagged by Analyzer 0 % (0-5); Neutrophil # 6.42 X10^3/uL (2.7-7.7); Neutrophil % 91.5 % (47-70); POSITIVE DIFFERENTIAL YES; Platelet Count 198 K/mm3 (150-450); RBC Distribution Width CV 13.6 % (11.6-14.6); RBC Distribution Width SD 51.8 fl (35.1-43.9); Red Blood Count 3.51 M/mm3 (4.6-6.2)
[2019-08-27] MEDS: carBAMazepine 200 MG Tablet 400 MG PO ×2 (09:03→17:32)
[2019-08-27] MEDS: Folic Acid 1 MG Tablet PO (09:03)
[2019-08-27] MEDS: busPIRone 15 MG TABLET PO ×2 (09:03→22:24)
[2019-08-27] MEDS: Tamsulosin HCl 0.4 MG Capsule PO (09:03)
[2019-08-27] MEDS: Thiamine Hydrochloride 100 MG Tablet PO (09:03)
[2019-08-27] MEDS: Multivitamins,Therapeutic Tablet 1 TABLET PO (09:03)
[2019-08-27] MEDS: Galantamine Hydrobromide 4 MG Tablet PO ×2 (09:03→17:32)
[2019-08-27 09:05] LABS: Anion Gap 7 (5-15); BUN 8 mg/dL (7-18); BUN/Creat Ratio 13.1 RATIO (10-20); Calcium,Total 8.8 mg/dL (8.5-10.1); Chloride 99 mmol/L (98-107); Creatinine, Serum 0.61 mg/dL (0.70-1.30); EST Glomerular Filtration Rate 144 mL/min (>60); Est Glom Filt Rate - Afr Amer 175 mL/min (>60); Estimated Creatinine Clearance 135.22 ml/min; Glucose 160 mg/dL (74-106); Potassium 3.8 mmol/L (3.5-5.1); Sodium Level 133 mmol/L (136-145)
[2019-08-27] MEDS: Enoxaparin 40 MG/0.4 ML Syringe SC (09:05)
--- NOTE | 2019-08-27 10:25 | PCM.PN.HOSP ---
Subjective: Pateint seen and examined. He complains of shortness of breath and wheezing. He denies fever or chills, but admits to pleuritic chest pain, with coughing. Review of systems is otherwise negative. Labs and vitals reviewed. sodium is 133. Vitals/I&O's: Vital Signs Temp Pulse Resp BP Pulse Ox 97.7 F L 72 20 H 147/70 H 95 08/27/19 09:00 08/27/19 09:00 08/27/19 09:00 08/27/19 09:00 08/27/19 09:00 Oxygen Flow Rate (L/min) 2 Oxygen Delivery Method Nasal Cannula Weight: 233 lb 11.04 oz Body Mass Index (BMI) 34.4 Finger Stick Blood Glucose 110 Intake and Output for Last 24 Hours 08/25/19 08/26/19 08/27/19 23:59 23:59 23:59 Intake Total 1140 / 1140 620 / 620 200 / 200 Output Total 1300 / 1300 500 / 500 Balance 1140 / 1140 -680 / -680 -300 / -300 General: Alert, Oriented x3, Cooperative, No apparent distress HEENT: Atraumatic, PERRLA, EOMI, Normocephalic Oral: Dry Mucosa Neck: Supple, No JVD, Negative Carotid Bruits Lungs: wheezing in all lung metzger bilaterally, no crackles. on 2L of oxygen by nasal cannula Cardiovascular: Regular rate, Regular Rhythm, Normal S1, Normal S2, No murmurs Abdomen: Bowel Sounds Present, Soft, Non Tender, Non-Distended, No Hepato-splenomegaly Extremities: No clubbing, No cyanosis, No edema, Capillary Refill Less than 3 Seconds Skin: No rashes, No breakdown Musculoskeletal: No Tenderness to Palpation of Joints or Extremities Lymphatic: No Cervical, Supraclavicular, or Inguinal Adenopathy Neurological: Cranial nerves II-XII grossly intact, Neuro grossly intact, Motor Exam 5/5 strength throughout Psych/Mental Status: Normal Affect, Appropriate, Alert and oriented to time, place, person, mood and affect Laboratory Results 08/27/19 08:32: WBC 7.0, RBC 3.51 L, Hgb 11.9 L, Hct 36.4 L, MCV 103.7 H, MCH 33.9 H, MCHC 32.7, RDW Std Deviation 51.8 H, RDW Coeff of Jass 13.6, Plt Count 198, MPV 10.5, Immature Gran % (Auto) 0.300, Neut % (Auto) 91.5 H, Lymph % (Auto) 5.7 L, [place] % (Auto) 2.4, Eos % (Auto) 0.0, Baso % (Auto) 0.1, Absolute Neuts (auto) 6.4, Absolute Lymphs (auto) 0.40 L, Nucleated RBC % 0 08/27/19 08:32: Sodium 133 L, Potassium 3.8, Chloride 99, Carbon Dioxide 27.0, Anion Gap 7, BUN 8, Creatinine 0.61 L, Estim Creat Clear Calc 135.22, Est GFR (MDRD) Af Amer 175, Est GFR (MDRD) Non-Af 144, BUN/Creatinine Ratio 13.1, Glucose 160 H, Calcium 8.8 Current Medications Acetaminophen (Tylenol) 650 mg PO Q6H PRN PRN PRN Reason: Pain Score 1-10/Temp > 100.7 F Last Admin: 08/27/19 01:23 Dose: 650 mg Documented by: Albuterol Sulfate (Ventolin Aerosols) 2.5 mg INHALATION Q2H PRN PRN PRN Reason: SOB &/OR WHEEZING Albuterol/Ipratropium (Duoneb) 3 ml INHALATION Q4H.RT [facility] Buspirone HCl (Buspar) 15 mg PO BID [facility] Last Admin: 08/27/19 09:03 Dose: 15 mg Documented by: [facility]) [facility] Last Admin: 08/27/19 09:03 Dose: 400 mg Documented by: Dextrose (D50w Syringe) 0 gm IV X1 PRN; Protocol PRN Reason: Hypoglycemia Dicyclomine HCl (Bentyl) 20 mg PO Q6H PRN PRN PRN Reason: abdominal discomfort Enoxaparin Sodium (Lovenox) 40 mg SC DAILY [facility] Last Admin: 08/27/19 09:05 Dose: 40 mg Documented by: Folic Acid (Folic Acid) 1 mg PO DAILY@0800 [facility] Last Admin: 08/27/19 09:03 Dose: 1 mg Documented by: Galantamine Hydrobromide (Razadyne) [facility] Last Admin: 08/27/19 09:03 Dose: 4 mg Documented by: Glucagon () 1 mg IM .X1 PRN PRN Reason: Hypoglycemia Hydroxyzine Pamoate (Vistaril Pamoate Capsule) 50 mg PO Q4H PRN PRN PRN Reason: mild anxiety Sodium Chloride () 250 mls @ 15 mls/hr IV .[id number] PRN PRN Reason: Saline Flush Sodium Chloride () 250 mls @ 15 mls/hr IV .[id number] PRN PRN Reason: Additional IVPB Infusion Loperamide HCl (Imodium) 2 mg PO Q4H PRN PRN PRN Reason: LOOSE STOOLS Lorazepam (Ativan) 2 mg IV X1 PRN PRN Reason: SEIZURES Lorazepam (Ativan) 1 mg PO Q4H [facility]; Taper Stop: 08/30/19 06:59 Last Admin: 08/27/19 06:57 Dose: 1 mg Documented by: Methylprednisolone (Solu-Medrol) 40 mg IV Q8 [facility] Last Admin: 08/27/19 05:08 Dose: 40 mg Documented by: Multivitamins (Multivitamin) [facility] Last Admin: 08/27/19 09:03 Dose: 1 tablet Documented by: Ondansetron HCl (Zofran) 4 mg IV Q8H PRN PRN PRN Reason: NAUSEA/VOMITING Sodium Chloride () 10 - 40 ml IV UD PRN PRN Reason: SALINE FLUSH Last Admin: 08/27/19 05:08 Dose: 10 ml Documented by: Tamsulosin HCl (Flomax) 0.4 mg PO DAILY [facility] Last Admin: 08/27/19 09:03 Dose: 0.4 mg Documented by: Thiamine HCl (Vitamin B1) [facility] Last Admin: 08/27/19 09:03 Dose: 100 mg Documented by: Trazodone HCl (Desyrel) 100 mg PO QHS PRN PRN Reason: INSOMNIA STROKE Vital Signs/Narrative: Vital Signs Temp Pulse Resp BP Pulse Ox 08/27/19 09:00 97.7 F L 72 20 H 147/70 H 95 08/27/19 07:00 77 08/27/19 06:49 80 22 H 97 Medical Necessity - Tobacco Use Smoking Status: Current every day smoker Tobacco Use: Cigarettes Assessment/Plan All Active Problems Seizure (Acute) 1. ?Seizures tegretol level on admission was normal. Patient says he thinks he had a seizure, but this was unwitnessed. he was found in a post ictal state EEG showed mild irregularities of cerebral function which may reflext toxic, metabolic, neurodegenerative, inflammatory, infectious or structural abnormaliteis; no seizures or definitive focal, lateralised or epileptiform abnormalities noted CT of of the brain showed no acute intracranial process I am not sure whether it was really a seizure, or it was more of alcohol intoxication. Seizure was unwitnessed, and he was just found lethargic and post ictal. PT/OT on board on tegretol. says he is allergic to other meds. 2. Alcohol abuse at risk of withdrawal drinks 1 pint of whiskey daily on alcohol withdrawal protocol with ativan on thiamine, folic acid and multivites monitor CIWA score 3. Traumatic brain injury with memory loss on galantamine 4. COPD exacerbation: now on 2L of oxygen. on IV solumedrol 40mg q8 breathing treatment with duonebs 5. Nicotine dependence: counseled to quit. Nicotine patch 21mg daily DVT prophylaxis: lovenox. Inpatient E&M: 01688 Subs Hosp L2
[2019-08-28] VITALS (10 sets, daily range): BP systolic 128–161; BP diastolic 61–81; PULSE 70–85; RESP 18–24; TEMP 36.3–36.6; O2SAT 93–98
[2019-08-28] MEDS: LORazepam 1 MG Tablet PO ×2 (02:58→07:01)
[2019-08-28] MEDS: Ipratropium/Albuterol Sulfate 3 ML AMPUL.NEB INHALATION ×3 (03:04→10:27)
[2019-08-28] MEDS: 0.9% Saline Lock 10 ML Syringe IV (05:00)
[2019-08-28] MEDS: Multivitamins,Therapeutic Tablet 1 TABLET PO (07:35)
[2019-08-28] MEDS: Thiamine Hydrochloride 100 MG Tablet PO (07:35)
[2019-08-28] MEDS: Galantamine Hydrobromide 4 MG Tablet PO (07:35)
[2019-08-28] MEDS: carBAMazepine 200 MG Tablet 400 MG PO (07:35)
[2019-08-28] MEDS: Folic Acid 1 MG Tablet PO (07:35)
[2019-08-28] MEDS: busPIRone 15 MG TABLET PO (09:37)
[2019-08-28] MEDS: Tamsulosin HCl 0.4 MG Capsule PO (09:37)
[2019-08-28] MEDS: Enoxaparin 40 MG/0.4 ML Syringe SC (09:37)
--- NOTE | 2019-08-28 11:05 | DCINST_ITS ---
You will use the following diet at home:: No restrictions Discharge Activity: Return to Normal Activity Call your doctor if you observe: Shortness of breath, Dizziness, Fainting spells, Chest pain Allergies/Adverse Reactions: Allergies celecoxib [From Celebrex] Allergy (Verified 08/25/19 18:06) Unknown NSAIDS (Non-Steroidal Anti-Inflamma Allergy (Verified 08/25/19 18:06) Unknown phenytoin sodium [From Dilantin] Allergy (Verified 08/25/19 18:06) Unknown phenytoin sodium extended [From Dilantin] Allergy (Verified 08/25/19 18:06) Unknown pregabalin [From Lyrica] Allergy (Verified 08/25/19 18:06) Unknown quetiapine fumarate [From Seroquel] Allergy (Verified 08/25/19 18:06) Unknown tramadol Allergy (Verified 08/25/19 18:06) Unknown diclofenac Adverse Reaction (Verified 08/25/19 18:06) Rash divalproex sodium [From Depakote] Adverse Reaction (Verified 08/25/19 18:06) Unknown gabapentin [From Neurontin] Adverse Reaction (Verified 08/25/19 18:06) Unknown Medications to take at Discharge Carbamazepine [Tegretol] 400 mg PO BIDCM 01/08/13 Galantamine Hbr [Razadyne] 4 mg PO BIDCM 01/08/13 Buspirone HCl [Buspar] 15 mg PO BID 07/13/14 Lidocaine [Lidoderm Patch] 1 patch TOPICAL DAILY PRN PRN 08/10/14 Lorazepam [Ativan] 1 mg PO TID PRN PRN #7 tablet 08/11/14 Tamsulosin HCl [Flomax] 0.4 mg PO DAILY 01/01/17 Aspirin [Aspirin, Baby] 81 mg PO DAILY@0800 tab.chew 07/27/17 Albuterol IH (ProAir) [Proair Hfa] 1 puff INHALATION Q6H PRN PRN 08/25/19 Albuterol Sulfate [Albuterol Sulfate HFA] 1 amp INHALATION Q4H PRN PRN 08/25/19 Fluticasone/Salmeterol [Advair 500-50 Diskus] 1 blist INHALATION BID 08/25/19 Ipratropium/Albuterol Sulfate [Duoneb] 1 amp INHALATION Q4H PRN PRN 08/25/19 Protonix 40 mg PO DAILY 08/25/19 Prednisone See Taper PO DAILY #30 tab 08/28/19 The following prescriptions were given: Prednisone See Taper PO DAILY #30 tab Transmission Status: Pending to [facility]/pharmacy #[id number] Primary Care Physician: Helder Camejo MD [Primary Care Provider] - Please follow up with your Primary Care Physician in: 1 Week Test Results: Test results from this visit will be discussed in further detail at your follow- up appointment, if applicable. Please Follow Up With: Primary neurologist When: 1-2 Weeks Proposed Discharge Date: 08/28/19
--- NOTE | 2019-08-28 11:11 | DS.PCM_ITS ---
<Shannan Barbosa - Last Filed: 08/28/19 11:29> Discharge Date and Diagnosis Date of Admission: 08/25/19 Date of Discharge: 08/28/19 - Primary Discharge Diagnosis Acute Problems: 1. Acute alcohol intoxication, chronic alcohol abuse 2. History of seizures 3. COPD with exacerbation 4. History of traumatic brain injury with memory loss 5. Tobacco dependence 6. BPH 7. Depression/anxiety - Secondary Discharge Diagnosis Chronic Problems: Chronic Problems History of renal cell carcinoma (Chronic) COPD (chronic obstructive pulmonary disease) (Chronic) CVA (cerebral vascular accident) (Chronic) Substance use disorder (Chronic) TBI (traumatic brain injury) (Chronic) Hepatitis C (Chronic) Hospital Course and Treatment Imaging Results: Diagnostic Data Brain CT 08/25/19 18:02 IMPRESSION: No change and no acute abnormality. Electronically Signed: Hemal Holley MD at 19:11 EDT , Service support , Chest X-Ray 08/25/19 18:02 IMPRESSION: Normal x-ray examination of the chest. Electronically Signed: Hemal Holley MD at 19:14 EDT , Service support , Operations: None Procedures: Electroencephalogram Summary of Care Provided: The patient is a 58 year old M admitted 08/25/2019 due to possible seizure. 1. Acute alcohol intoxication, chronic alcohol abuse-alcohol level 414 on admission. CIWA protocol/withdrawal precautions during admission. Patient downplays his alcohol consumption and is not interested in [employer] consult or resources regarding alcohol cessation. He was given information if he decides he would like assistance. He currently has home health aides and will be discharged home in stable condition with resumed home health services. Follow- up with primary care physician in 1 week. 2. History of seizures-on Tegretol. Level therapeutic. EEG demonstrated mild irregularities of cerebral function which may reflect toxic, metabolic, neurodegenerative, inflammatory, infectious or structural abnormalities. There were no seizures or definitive focal, lateralized or epileptiform abnormalities. Seizure was unwitnessed. CT of brain showed no acute process. Suspect presenting symptoms related to alcohol intoxication. No further evidence of seizure activity. Patient will resume home Tegretol regimen and follow-up with primary neurologist as outpatient. 3. COPD with exacerbation-continue home albuterol and DuoNeb aerosols. IV Solu-Medrol during admission. Transition to prednisone taper at discharge. Patient is afebrile, no leukocytosis. No significant cough. Ambulatory pulse ox/home oxygen testing completed prior to discharge and patient did not require further supplemental oxygen at discharge. Follow-up with Dr. Garcia, pulmonary medicine as scheduled. 4. History of traumatic brain injury with memory loss-on Razadyne. 5. Tobacco dependence-encouraged cessation. 6. BPH-continue Flomax regimen. 7. Depression/anxiety-on buspirone, PRN Ativan. Patient seen and examined prior to discharge. Physical assessment as noted below. Patient is stable for discharge with follow up recommendations as noted above. This patient was seen by KIA Suarez under the supervision of Dr. Mclain. - Physical Exam Vitals/I&O's: Vital Signs Temp Pulse Resp BP Pulse Ox 97.3 F L 73 22 H 161/81 H 94 08/28/19 09:35 08/28/19 09:35 08/28/19 10:28 08/28/19 09:35 08/28/19 10:17 Oxygen Flow Rate (L/min) 2 Oxygen Delivery Method Nasal Cannula Weight: 233 lb 11.04 oz Body Mass Index (BMI) 34.4 Finger Stick Blood Glucose 110 Intake and Output for Last 24 Hours 08/26/19 08/27/19 08/28/19 23:59 23:59 23:59 Intake Total 620 / 620 680 / 920 460 / 460 Output Total 1300 / 1300 2065 / 2265 200 / 200 Balance -680 / -680 -1385 / -1345 260 / 260 General: Alert, Oriented x3, Cooperative HEENT: Atraumatic, PERRLA, EOMI, Normocephalic Neck: Supple, No JVD, Negative Carotid Bruits Lungs: Diminished, Wheezes Cardiovascular: Regular rate, Regular Rhythm, Normal S1, Normal S2, No murmurs Abdomen: Bowel Sounds Present, Soft, Non Tender, Non-Distended Extremities: No clubbing, No cyanosis, No edema, Capillary Refill Less than 3 Seconds Skin: No rashes, No breakdown Musculoskeletal: No Tenderness to Palpation of Joints or Extremities Neurological: Cranial nerves II-XII grossly intact, Neuro grossly intact Psych/Mental Status: Flat Affect Microbiology Past 72 Hours 08/25/19 18:00 Blood Culture (Wb) - Left Wrist Blood Culture - Preliminary No growth in 48 hours. 08/25/19 17:55 Blood Culture (Wb) - Anticubital Right Blood Culture - Preliminary No growth in 48 hours. Current Medications Acetaminophen (Tylenol) 650 mg PO Q6H PRN PRN PRN Reason: Pain Score 1-10/Temp > 100.7 F Last Admin: 08/27/19 01:23 Dose: 650 mg Documented by: Albuterol Sulfate (Ventolin Aerosols) 2.5 mg INHALATION Q2H PRN PRN PRN Reason: SOB &/OR WHEEZING Albuterol/Ipratropium (Duoneb) 3 ml INHALATION Q4H.RT [facility] Last Admin: 08/28/19 10:27 Dose: 3 ml Documented by: Buspirone HCl (Buspar) 15 mg PO BID [facility] Last Admin: 08/28/19 09:37 Dose: 15 mg Documented by: [facility]) [facility] Last Admin: 08/28/19 07:35 Dose: 400 mg Documented by: Dextrose (D50w Syringe) 0 gm IV X1 PRN; Protocol PRN Reason: Hypoglycemia Dicyclomine HCl (Bentyl) 20 mg PO Q6H PRN PRN PRN Reason: abdominal discomfort Enoxaparin Sodium (Lovenox) 40 mg SC DAILY [facility] Last Admin: 08/28/19 09:37 Dose: 40 mg Documented by: Folic Acid (Folic Acid) 1 mg PO DAILY@0800 [facility] Last Admin: 08/28/19 07:35 Dose: 1 mg Documented by: Galantamine Hydrobromide (Razadyne) [facility] Last Admin: 08/28/19 07:35 Dose: 4 mg Documented by: Glucagon () 1 mg IM .X1 PRN PRN Reason: Hypoglycemia Hydroxyzine Pamoate (Vistaril Pamoate Capsule) 50 mg PO Q4H PRN PRN PRN Reason: mild anxiety Sodium Chloride () 250 mls @ 15 mls/hr IV .[id number] PRN PRN Reason: Saline Flush Sodium Chloride () 250 mls @ 15 mls/hr IV .[id number] PRN PRN Reason: Additional IVPB Infusion Loperamide HCl (Imodium) 2 mg PO Q4H PRN PRN PRN Reason: LOOSE STOOLS Lorazepam (Ativan) 2 mg IV X1 PRN PRN Reason: SEIZURES Lorazepam (Ativan) 1 mg PO Q6H [facility]; Taper Stop: 08/30/19 06:59 Last Admin: 08/28/19 07:01 Dose: 1 mg Documented by: Methylprednisolone (Solu-Medrol) 40 mg IV Q8 [facility] Last Admin: 08/28/19 05:00 Dose: 40 mg Documented by: Multivitamins (Multivitamin) [facility] Last Admin: 08/28/19 07:35 Dose: 1 tablet Documented by: Ondansetron HCl (Zofran) 4 mg IV Q8H PRN PRN PRN Reason: NAUSEA/VOMITING Sodium Chloride () 10 - 40 ml IV UD PRN PRN Reason: SALINE FLUSH Last Admin: 08/28/19 05:00 Dose: 10 ml Documented by: Tamsulosin HCl (Flomax) 0.4 mg PO DAILY [facility] Last Admin: 08/28/19 09:37 Dose: 0.4 mg Documented by: Thiamine HCl (Vitamin B1) [facility] Last Admin: 08/28/19 07:35 Dose: 100 mg Documented by: Trazodone HCl (Desyrel) 100 mg PO QHS PRN PRN Reason: INSOMNIA Discharge Diet: No Restrictions Discharge Activity: Return to Normal Activity Call your doctor if you observe: Shortness of breath, Dizziness, Fainting spells, Chest pain Home Medications: Medications to take at Discharge Carbamazepine [Tegretol] 400 mg PO BID 01/08/13 Galantamine Hbr [Razadyne] 4 mg PO BID 01/08/13 Buspirone HCl [Buspar] 15 mg PO BID 07/13/14 Lidocaine [Lidoderm Patch] 1 patch TOPICAL DAILY PRN PRN 08/10/14 Lorazepam [Ativan] 1 mg PO TID PRN PRN #7 tablet 08/11/14 Tamsulosin HCl [Flomax] 0.4 mg PO DAILY 01/01/17 Aspirin [Aspirin, Baby] 81 mg PO DAILY@0800 tab.chew 07/27/17 Albuterol IH (ProAir) [Proair Hfa] 1 puff INHALATION Q6H PRN PRN 08/25/19 Albuterol Sulfate [Albuterol Sulfate HFA] 1 amp INHALATION Q4H PRN PRN 08/25/19 Fluticasone/Salmeterol [Advair 500-50 Diskus] 1 blist INHALATION BID 08/25/19 Ipratropium/Albuterol Sulfate [Duoneb] 1 amp INHALATION Q4H PRN PRN 08/25/19 Protonix 40 mg PO DAILY 08/25/19 Prednisone See Taper PO DAILY #30 tab 08/28/19 Following Prescrptions Were Given to Patient: Prednisone See Taper PO DAILY #30 tab Transmission Status: Received by [facility][id number] Primary Care Physician: Helder Camejo MD [Primary Care Provider] - Please follow up with your Primary Care Physician in: 1 Week Please Follow Up With: Primary neurologist When: 1-2 Weeks Disposition: Home with Home Health Minutes spent on discharge:: 35 Patient Condition:: Stable Medical Necessity - Tobacco Use Smoking Status: Current every day smoker Tobacco Use: Cigarettes Meaningful Use Info Meaningful Use Diagnoses (Choose all that apply): None applicable <Leda Mclain - Last Filed: 08/28/19 15:56> Discharge Date and Diagnosis - Secondary Discharge Diagnosis Chronic Problems: Chronic Problems History of renal cell carcinoma (Chronic) COPD (chronic obstructive pulmonary disease) (Chronic) CVA (cerebral vascular accident) (Chronic) Substance use disorder (Chronic) TBI (traumatic brain injury) (Chronic) Hepatitis C (Chronic) Hospital Course and Treatment Summary of Care Provided: Patient seen by Shannan Roberto under my supervision The patient is a 58 year old M admitted with a complaint of altered mental status. He was found unresponsive, and it was thought he may have had a seizure, as he had a history of seizures. He was found to be in a postictal state when the EMS arrived. CT of the brain was negative. According to his home nurse and as per documentation, patient had not had a seizure for many many years. Patient was admitted and managed for acute metabolic encephalopathy which was initially thought to be due to seizures. Alcohol level was also elevated at over 400. Urine tox was negative. Tegretol level was normal. Patient not give much information about what happened and did not remember having any seizure. EEG done showed mild irregularities of cerebral function which may reflect toxic, metabolic, neurodegenerative, inflammatory, infectious or structural abnormalities but there were no seizures or definite epileptiform abnormalities. His symptoms seem to be more in line with patient having been intoxicated with alcohol as he did admit to drinking heavily. Patient was also noted to be wheezing on admission and requiring oxygen and so was managed for his acute COPD exacerbation and given breathing treatments with bronchodilators as well as IV Solu-Medrol. Patient remained stable and had no evidence of seizure whatsoever during admission. His mentation improved significantly. He remained stable and was discharged home on 08/28/2019 to follow-up with his neurologist on outpatient basis. He was also to be compliant with his Tegretol dose. Of note, patient was allergic to all other antiseizure medications according to him and could only tolerate Tegretol. He was also discharged with a prescription for prednisone taper. Patient seen and examined. He had no complaints and felt well. He was weaned of oxygen and did well with therapy; review of systems otherwise negative. Labs and vitals reviewed. Home meds reviewed and reconciled. O/E: Vital Signs Temp Pulse Resp BP Pulse Ox 97.3 F L 73 18 161/81 H 94 08/28/19 11:51 08/28/19 11:51 08/28/19 11:51 08/28/19 11:51 08/28/19 11:51 General: Alert, Oriented x3, Cooperative, No apparent distress HEENT: Atraumatic, PERRLA, EOMI, Normocephalic Oral: Dry Mucosa Neck: Supple, No JVD, Negative Carotid Bruits Lungs: minimal wheezing in all lung metzger; on room air. Cardiovascular: Regular rate, Regular Rhythm, Normal S1, Normal S2, No murmurs Abdomen: Bowel Sounds Present, Soft, Non Tender, Non-Distended, No Hepato- splenomegaly Extremities: No clubbing, No cyanosis, No edema, Capillary Refill Less than 3 Seconds Skin: No rashes, No breakdown Musculoskeletal: No Tenderness to Palpation of Joints or Extremities Lymphatic: No Cervical, Supraclavicular, or Inguinal Adenopathy Neurological: Cranial nerves II-XII grossly intact, Neuro grossly intact, Motor Exam 5/5 strength throughout Psych/Mental Status: Normal Affect, Appropriate, Alert and oriented to time, place, person, mood and affect Plan is for discharge home on prednisone taper and continue breathing treatments. Counseled to comply with his Tegretol and is follow-up with his outpatient neurologist and primary care doctor. As per Shannan Barbosa SKIVER BLOCKERS-C's notes which I reviewed and endorsed. - Physical Exam Vitals/I&O's: Vital Signs Temp Pulse Resp BP Pulse Ox 97.3 F L 73 18 161/81 H 94 08/28/19 11:51 08/28/19 11:51 08/28/19 11:51 08/28/19 11:51 08/28/19 11:51 Oxygen Flow Rate (L/min) 2 Oxygen Delivery Method Room Air Weight: 233 lb 11.04 oz Body Mass Index (BMI) 34.4 Finger Stick Blood Glucose 110 Intake and Output for Last 24 Hours 08/26/19 08/27/19 08/28/19 23:59 23:59 23:59 Intake Total 620 / 620 680 / 920 820 / 820 Output Total 1300 / 1300 2065 / 2265 500 / 500 Balance -680 / -680 -1385 / -1345 320 / 320 Microbiology Past 72 Hours 08/25/19 18:00 Blood Culture (Wb) - Left Wrist Blood Culture - Preliminary No growth in 48 hours. 08/25/19 17:55 Blood Culture (Wb) - Anticubital Right Blood Culture - Preliminary No growth in 48 hours. Inpatient E&M: [id number] Disch Hosp
== END 2019-08-28 11:06 | disposition home or self-care (01) ==
LOC: ED 19:14 → PCU 20:56
PROVIDERS: Admitting Provider Hospitalist; Emergency Provider Emergency Medicine; PCP Family Medicine; Visit Provider Student in an Organized Health Care Education/Training Program
DX: F10.129 Alcohol abuse with intoxication, unspecified (principal); Y90.8 Blood alcohol level of 240 mg/100 ml or more; J44.1 Chronic obstructive pulmonary disease with (acute) exacerbation; F41.9 Anxiety disorder, unspecified; F32.9 Major depressive disorder, single episode, unspecified; F17.210 Nicotine dependence, cigarettes, uncomplicated; G40.909 Epilepsy, unspecified, not intractable, without status epilepticus; I25.10 Atherosclerotic heart disease of native coronary artery without angina pectoris; B18.2 Chronic viral hepatitis C; Z85.528 Personal history of other malignant neoplasm of kidney; Z79.899 Other long term (current) drug therapy; Z79.82 Long term (current) use of aspirin; Z87.820 Personal history of traumatic brain injury; N40.0 Benign prostatic hyperplasia without lower urinary tract symptoms
CPT/HCPCS: 36415; 36600; 70450; 71045; 80048; 80053; 80156; 80320; 82803; 84146; 84484; 85025; 87040; 93005; 94640; 95819; 96361; 96372; 96374; 96375; 96376; 97162; 97165; 97535; 97802; 99218; 99285; J7030; A4216; G0378; G0480

== ENCOUNTER 2021-04-27 16:20 | Emergency (ER) | payer MEDICAID, SELFPAY ==
[2021-04-27 16:20] VITALS: BP 211/91; PULSE 89; RESP 16; TEMP 36.7; O2SAT 92; BMI 37.6
--- NOTE | 2021-04-27 16:43 | EDS_ITS ---
HPI History of Present Illness Chief Complaint: Hypertension Informant: patient and family Onset/Context/Timing Onset: Days Context: Gradual Onset Timing: Continuous Narrative Narrative: 60-year-old male history of hypertension, COPD, CVA, VA, renal cancer and traumatic brain injury. About a week ago he was started on amlodipine 5 mg 1 a day for blood pressure. States has been taking it as directed and is done nothing to improve his blood pressure. He is actually running higher. He is actually doubled the dose to 10 mg for 3 days and has not noticed any impr ovement. Previously was not on any blood pressure medication. He denies any illness. Prior similar symptoms: Yes Recent Illness/Hospitalization: No PFSH PFSH Home Medications carbamazepine 400 mg PO BIDCM 01/08/13 [History Last Taken 08/25/19 08:00] galantamine 4 mg PO BIDCM 01/08/13 [History Last Taken 08/25/19 08:00] buspirone 15 mg PO BID 07/13/14 [History Last Taken 08/25/19] lidocaine 1 patch TOPICAL DAILY PRN PRN 08/10/14 [History Last Taken 08/22/19] lorazepam 1 mg PO TID PRN PRN #7 tablet 08/11/14 [Rx Last Taken 07/25/17] tamsulosin 0.4 mg PO DAILY 01/01/17 [History Last Taken 08/25/19 08:00] aspirin 81 mg PO DAILY@0800 tab.chew 07/27/17 [Rx Last Taken Unknown] Protonix 40 mg PO DAILY 08/25/19 [History Last Taken 08/25/19 08:00] albuterol sulfate 1 amp INHALATION Q4H PRN PRN 08/25/19 [History Last Taken 08/25/19 16:00] albuterol sulfate 1 puff INHALATION Q6H PRN PRN 08/25/19 [History Last Taken Unknown] fluticasone propion-salmeterol 1 blist INHALATION BID 08/25/19 [History Last Taken 08/25/19] ipratropium-albuterol 1 amp INHALATION Q4H PRN PRN 08/25/19 [History Last Taken 08/25/19 08:00] prednisone See Taper PO DAILY #30 tab 08/28/19 [Rx Last Taken Unknown] lisinopril 20 mg PO DAILY #30 tab 04/27/21 [Rx Last Taken Unknown] Allergy/AdvReac Type Severity Reaction Status Date / Time celecoxib [From Celebrex] Allergy Unknown Verified 04/27/21 16:23 NSAIDS (Non-Steroidal Allergy Unknown Verified 04/27/21 16:23 Anti-Inflamma phenytoin sodium Allergy Unknown Verified 04/27/21 16:23 [From Dilantin] phenytoin sodium extended Allergy Unknown Verified 04/27/21 16:23 [From Dilantin] pregabalin [From Lyrica] Allergy Unknown Verified 04/27/21 16:23 quetiapine fumarate Allergy Unknown Verified 04/27/21 16:23 [From Seroquel] tramadol Allergy Unknown Verified 04/27/21 16:23 diclofenac AdvReac Rash Verified 04/27/21 16:23 divalproex sodium AdvReac Unknown Verified 04/27/21 16:23 [From Depakote] gabapentin [From Neurontin] AdvReac Unknown Verified 04/27/21 16:23 Social History Smoking Status: Current every day smoker ROS ROS ED ROS Narrative Denies. Review of Systems ROS Unobtainable: Denies due to encephalopathy Constitutional Constitutional ED: Denies daytime sleepiness Eyes Eyes: Denies blindness or bloody eye ENT ENT ED: Denies bloody eye Cardiovascular Cardiovascular: Denies abdominal pain Respiratory/Chest Respiratory/Chest: Denies change in mental status or chest congestion Genitourinary Genitourinary ED: Denies abdominal discomfort Musculoskeletal Musculoskeletal: Denies abnormal gait Integumentary Denies change in hair or jaundice Neurologic Neurologic: Denies abnormal movements Psychiatric Psychiatric: Denies anxiety Endocrine Endocrinology: Denies cold intolerance Hematologic/Lymphatic Hematologic/Lymphatic: Denies lymphadenopathy Allergic/Immunologic Allergic/Immunologic ED: Denies lip swelling or mouth swelling EXAM Physical Exam Narrative Exam Narrative: 40-year-old male initial blood pressure 211/91. He does not look septic or toxic he is in no distress. His pulse ox is 92% on room air no hypoxia. HEENT exam unremarkable. No facial droop. Moist mucous membranes. Neck nontender no JVD. Lungs clear to auscultation bilaterally. Heart regular rhythm rate about 90 no murmur. Abdomen soft nontender normal bowel sounds no peritoneal signs. Obese. Moving all 4 extremities. Calves are nontender. Equal symmetrical methodologist strength. Dorsi plantar flexion intact. Neurologically is awake and alert with no focal motor deficits. Const Vital Signs: 04/27/21 16:20 Temperature 98.1 F Temperature Source Temporal Pulse Rate 89 Respiratory Rate 16 Blood Pressure 211/91 H Blood Pressure Mean 131 Pulse Ox 92 Oxygen Delivery Method Room Air MDM MDM MDM Narrative Medical decision making narrative: 60-year-old with hypertension recently started on amlodipine that is not improving his blood pressure. He and I discussed treatment options. He and family did not feel continuing his amlodipine was doing him any good. That will be stopped. He will be started on lisinopril 20 mg once a day. Log his blood pressures twice daily and follow-up with his primary care physician's office to see if this needs to be adjusted or changed. Discharge Plan Triage Chief Complaint: Hypertension ED Provider: Griffin Arango Dx/Rx/DC Orders Clinical Impression: CVA (cerebral vascular accident), COPD (chronic obstructive pulmonary disease), Hypertension Instructions: ED Hypertension, Established Prescriptions: New lisinopril 20 mg tablet 20 mg PO DAILY Qty: 30 RF: 0 No Action galantamine 4 MG tablet 4 mg PO BIDCM RF: 0 carbamazepine 200 MG tablet 400 mg PO BIDCM RF: 0 buspirone 30 MG tablet 15 mg PO BID RF: 0 lidocaine 1 PATCH patch 1 patch topical DAILY PRN PRN (Reason: Pain) RF: 0 lorazepam 1 MG tablet 1 mg PO TID PRN PRN (Reason: Anxiety) Qty: 7 RF: 0 tamsulosin 0.4 MG capsule 0.4 mg PO DAILY RF: 0 aspirin 81 MG tablet,chewable 81 mg PO DAILY@0800 RF: 0 ipratropium-albuterol 0.5 mg-3 mg(2.5 mg base)/3 mL solution for nebulization 1 amp inhalation Q4H PRN PRN (Reason: Sob &/Or Wheezing) RF: 0 fluticasone propion-salmeterol 500-50 mcg/dose blister with device 1 blist inhalation BID RF: 0 albuterol sulfate 90 mcg/actuation HFA aerosol inhaler 1 puff inhalation Q6H PRN PRN (Reason: Sob &/Or Wheezing) RF: 0 albuterol sulfate 90 mcg/actuation HFA aerosol inhaler 1 amp inhalation Q4H PRN PRN (Reason: Sob &/Or Wheezing) RF: 0 Protonix 40 mg PO DAILY RF: 0 prednisone 10 MG tablet See Taper mg PO DAILY Qty: 30 RF: 0 Primary Care Provider: Helder Camejo Referrals: Helder Camejo MD [Primary Care Provider] - 1-2 Weeks Activity Restrictions/Additional Instructions: Stop your current blood pressure medication the amlodipine. Start the new blood pressure medication which is lisinopril 20 mg once a day taken an hour before bedtime. Check your blood pressures at least twice daily. If they are running too low we will need to adjust your medication. If they continue to run high they may need to increase the dose of the lisinopril or have you take it twice daily. There is plenty of room for adjustment for either higher or lower dosages of this medication. Log your blood pressures twice daily and follow-up with your doctor in 1 to 2 weeks to ensure that this is controlling your blood pressure correctly. Return if feeling worse. This occurs uncommonly but if you would develop swelling of your lips or tongue stop the lisinopril immediately and be evaluated in the emergency department. Disposition Disposition: Home, Self Care
[2021-04-27] MEDS: Lisinopril 20 MG Tablet PO (17:15)
== END 2021-04-27 17:19 | disposition home or self-care (01) ==
LOC: ED 16:55
PROVIDERS: Emergency Provider Emergency Medicine; PCP Family Medicine; Visit Provider Emergency Medicine
DX: I63.9 Cerebral infarction, unspecified (principal); J44.9 Chronic obstructive pulmonary disease, unspecified; I10 Essential (primary) hypertension; F17.200 Nicotine dependence, unspecified, uncomplicated
CPT/HCPCS: 99283

== ENCOUNTER 2021-06-17 11:38 | Emergency (ER) | payer MEDICAID, SELFPAY ==
[2021-06-17 11:40] VITALS: BP 164/84; PULSE 80; RESP 20; TEMP 36.9; O2SAT 98; BMI 37.1
[2021-06-17 11:49] VITALS: BP 164/84; PULSE 87; RESP 18; O2SAT 97
--- NOTE | 2021-06-17 11:59 | EKG12_ITS ---
Test Reason : Blood Pressure : / mmHG Vent. Rate : 081 BPM Atrial Rate : 081 BPM P-R Int : 174 ms QRS Dur : 080 ms QT Int : 394 ms P-R-T Axes : 057 -19 073 degrees QTc Int : 457 ms Normal sinus rhythm Normal ECG Confirmed by VIRGIE CORDERO, ANDRES ([id number]), commissioning editor RICHARD OTERO ([id number]) on 06/20/2021 9:58:41 AM Referred By: PARADISE Confirmed By:ANDRES GARVIN MD
--- NOTE | 2021-06-17 12:00 | EX.ED.DYSGE1 ---
HPI History of Present Illness Chief Complaint: Confusion Informant: patient, EMS and PCP Narrative Narrative: Patient presents via EMS from PCPs office after a fall with confusion. Patient fell 2 days ago after tripping over his cat. He struck the top of his head against a dresser. He does have a superficial laceration over the scalp. Patient went to his PCP did today who felt he was slightly more confused than baseline and had a left facial droop. He does not know when this may have started. He has some chronic right-sided weakness from a previous head injury, but does feel his right side is slightly more weak than baseline. 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 Hypertension MDD (major depressive disorder) Mild cognitive impairment Porokeratosis PTSD (post-traumatic stress disorder) Pulmonary emphysema Renal cell carcinoma Renal mass Stroke Type 2 diabetes mellitus Home Medications carbamazepine 400 mg PO BIDCM 01/08/13 [History Last Taken 08/25/19 08:00] galantamine 4 mg PO BIDCM 01/08/13 [History Last Taken 08/25/19 08:00] buspirone 15 mg PO BID 07/13/14 [History Last Taken 08/25/19] lidocaine 1 patch TOPICAL DAILY PRN PRN 08/10/14 [History Last Taken 08/22/19] lorazepam 1 mg PO TID PRN PRN #7 tablet 08/11/14 [Rx Last Taken 07/25/17] tamsulosin 0.4 mg PO DAILY 01/01/17 [History Last Taken 08/25/19 08:00] aspirin 81 mg PO DAILY@0800 tab.chew 07/27/17 [Rx Last Taken Unknown] Protonix 40 mg PO DAILY 08/25/19 [History Last Taken 08/25/19 08:00] albuterol sulfate 1 amp INHALATION Q4H PRN PRN 08/25/19 [History Last Taken 08/25/19 16:00] albuterol sulfate 1 puff INHALATION Q6H PRN PRN 08/25/19 [History Last Taken Unknown] fluticasone propion-salmeterol 1 blist INHALATION BID 08/25/19 [History Last Taken 08/25/19] ipratropium-albuterol 1 amp INHALATION Q4H PRN PRN 08/25/19 [History Last Taken 08/25/19 08:00] prednisone See Taper PO DAILY #30 tab 08/28/19 [Rx Last Taken Unknown] lisinopril 20 mg PO DAILY #30 tab 04/27/21 [Rx Last Taken Unknown] Allergy/AdvReac Type Severity Reaction Status Date / Time celecoxib [From Celebrex] Allergy Unknown Verified 04/27/21 16:23 NSAIDS (Non-Steroidal Allergy Unknown Verified 04/27/21 16:23 Anti-Inflamma phenytoin sodium Allergy Unknown Verified 04/27/21 16:23 [From Dilantin] phenytoin sodium extended Allergy Unknown Verified 04/27/21 16:23 [From Dilantin] pregabalin [From Lyrica] Allergy Unknown Verified 04/27/21 16:23 quetiapine fumarate Allergy Unknown Verified 04/27/21 16:23 [From Seroquel] tramadol Allergy Unknown Verified 04/27/21 16:23 diclofenac AdvReac Rash Verified 04/27/21 16:23 divalproex sodium AdvReac Unknown Verified 04/27/21 16:23 [From Depakote] gabapentin [From Neurontin] AdvReac Unknown Verified 04/27/21 16:23 Social History Smoking Status: Current every day smoker tobacco type: cigarettes ROS ROS ED Constitutional Constitutional ED: Denies chills or fever(s) Eyes Eyes: Denies change in vision ENT ENT ED: Denies sore throat Cardiovascular Cardiovascular: Denies chest pain Respiratory/Chest Respiratory/Chest: Denies cough or dyspnea Gastrointestinal Gastrointestinal: Denies abdominal pain, diarrhea, nausea or vomiting Genitourinary Genitourinary ED: Denies dysuria Musculoskeletal Musculoskeletal: Reports neck pain; Denies back pain Integumentary Denies rash Neurologic Neurologic: Reports headache(s) and weakness Allergic/Immunologic Allergic/Immunologic ED: Denies urticaria EXAM Physical Exam Const Vital Signs: 06/17/21 11:40 06/17/21 11:49 06/17/21 11:51 Temperature 98.5 F Temperature Source Oral Pulse Rate 80 87 Respiratory Rate 20 H 18 Respiratory Effort Normal Respiratory Depth Normal Respiratory Pattern Normal Blood Pressure 164/84 H 164/84 H Blood Pressure Mean 110 110 Pulse Ox 98 97 Oxygen Delivery Method Room Air Room Air Room Air 06/17/21 14:29 Temperature Temperature Source Pulse Rate 88 Respiratory Rate 20 H Respiratory Effort Respiratory Depth Respiratory Pattern Blood Pressure 162/75 H Blood Pressure Mean 104 Pulse Ox 95 Oxygen Delivery Method Room Air Positive well nourished and well developed General Appearance ED: well developed HEENT Reports moist mucous membranes HEENT Narrative: 8 cm long linear scalp abrasion. 1 cm flap laceration also noted over the right parietal scalp. No active bleeding. Eyes PERRL Neck supple Neck Narrative: Mild C-spine tenderness to palpation. Resp normal respiratory effort and clear to auscultation bilaterally Cardio regular rate and regular rhythm GI non-tender Palpation: soft Neuro oriented x3 Neuro Narrative: NIH equals 4 at the time of my examination. He receives two-point for left facial droop, one-point for right arm weakness, one-point for limb ataxia. Sensorium / Orientation: alert Psych mental status grossly normal Skin Skin Narrative: Scalp abrasion/laceration as noted above. MDM MDM MDM Narrative Medical decision making narrative: Patient sent for head CT along with x-ray of chest and right elbow. Lab work and urinalysis obtained. Lab Data Attestation: I reviewed the patient's lab results. Labs: Laboratory Results - last 24 hr 06/17/21 06/17/21 06/17/21 12:10 12:10 12:10 WBC 8.6 RBC 3.46 L Hgb 10.6 L Hct 34.4 L MCV 99.4 H MCH 30.6 MCHC 30.8 L RDW Std Deviation 56.5 H RDW Coeff of Jass 15.6 H Plt Count 168 MPV 10.8 Immature Gran % (Auto) 0.500 Neut % (Auto) 74.1 H Lymph % (Auto) 13.5 L [place] % (Auto) 9.2 Eos % (Auto) 2.0 Baso % (Auto) 0.7 Absolute Neuts (auto) 6.4 Absolute Lymphs (auto) 1.16 Nucleated RBC % 0 PT 13.4 INR 1.1 APTT 26.2 Sodium 139 Potassium 4.2 Chloride 105 Carbon Dioxide 33.0 H Anion Gap 1 L BUN 12 Creatinine 0.72 Estim Creat Clear Calc 115.47 Est GFR (MDRD) Af Amer 144 Est GFR (MDRD) Non-Af 119 BUN/Creatinine Ratio 16.7 Glucose 133 H Calcium 9.3 Troponin I High Sens 12 Urine Color Urine Clarity Urine pH Ur Specific [place] Urine Protein Urine Glucose (UA) Urine Ketones Urine Occult Blood Urine Nitrite Urine Bilirubin Urine Urobilinogen Ur Leukocyte Esterase Urine RBC Urine WBC Ur Squamous Epith Cells Urine Bacteria Urine Mucus 06/17/21 14:20 WBC RBC Hgb Hct MCV MCH MCHC RDW Std Deviation RDW Coeff of Jass Plt Count MPV Immature Gran % (Auto) Neut % (Auto) Lymph % (Auto) [place] % (Auto) Eos % (Auto) Baso % (Auto) Absolute Neuts (auto) Absolute Lymphs (auto) Nucleated RBC % PT INR APTT Sodium Potassium Chloride Carbon Dioxide Anion Gap BUN Creatinine Estim Creat Clear Calc Est GFR (MDRD) Af Amer Est GFR (MDRD) Non-Af BUN/Creatinine Ratio Glucose Calcium Troponin I High Sens Urine Color Yellow Urine Clarity Clear Urine pH 8.0 Ur Specific [place] 1.015 Urine Protein 30 H Urine Glucose (UA) Normal Urine Ketones Negative Urine Occult Blood 10 H Urine Nitrite Negative Urine Bilirubin 1 H Urine Urobilinogen 4 H Ur Leukocyte Esterase 25 H Urine RBC 0 SEEN Urine WBC 0 SEEN Ur Squamous Epith Cells 0-5 SEEN Urine Bacteria 0 SEEN Urine Mucus 0 SEEN Radiography Chest X-Ray - ED: 1 View, Read by ED Physician and Chronic Changes Diagnostic Testing: Clinical Impression(s) from Imaging Studies Brain CT 06/17/21 12:30 IMPRESSION: Stable, nonacute unenhanced CT scan of the brain. Electronically Signed: Peña Lobo MD ([place]) at 12:44 EDT , Cervical Spine CT 06/17/21 12:30 IMPRESSION: No acute findings in the cervical spine. Electronically Signed: Peña Lobo MD (Brooks) at 12:47 EDT , Chest X-Ray 06/17/21 12:35 IMPRESSION: Normal x-ray examination of the chest. Electronically Signed: Peña Lobo MD (Brooks) at 12:49 EDT , Elbow X-Ray 06/17/21 12:35 IMPRESSION: Normal x-ray examination of the elbow. Electronically Signed: Peña Lobo MD (Brooks) at 12:48 EDT , EKG Initial EKG: Attestation: I personally reviewed and interpreted this EKG as follows: Interpretation: Sinus Rhythm (Sinus 81 with no acute ischemia.) Treatment and Re-Evaluation Narrative: Repeat evaluation patient resting comfortably. He is passed bedside swallow eval and is tolerating p.o. without difficulty. I did discuss my concern for recent stroke with him as he does have a left-sided facial droop. At this time he is refusing hospital admission stating that he has pets at home to take care of. I will speak with PCP regarding need for outpatient MRI and close follow-up. Patient states he has a life alert button and will use that if he develops any further symptoms. Scalp abrasions are cleansed prior to discharge. Discharge Plan Triage Chief Complaint: Confusion ED Provider: Chayo Flores Dx/Rx/DC Orders Clinical Impression: Facial droop Instructions: ED Stroke, Completed Prescriptions: No Action galantamine 4 MG tablet 4 mg PO BIDCM RF: 0 carbamazepine 200 MG tablet 400 mg PO BIDCM RF: 0 buspirone 30 MG tablet 15 mg PO BID RF: 0 lidocaine 1 PATCH patch 1 patch topical DAILY PRN PRN (Reason: Pain) RF: 0 lorazepam 1 MG tablet 1 mg PO TID PRN PRN (Reason: Anxiety) Qty: 7 RF: 0 tamsulosin 0.4 MG capsule 0.4 mg PO DAILY RF: 0 aspirin 81 MG tablet,chewable 81 mg PO DAILY@0800 RF: 0 ipratropium-albuterol 0.5 mg-3 mg(2.5 mg base)/3 mL solution for nebulization 1 amp inhalation Q4H PRN PRN (Reason: Sob &/Or Wheezing) RF: 0 fluticasone propion-salmeterol 500-50 mcg/dose blister with device 1 blist inhalation BID RF: 0 albuterol sulfate 90 mcg/actuation HFA aerosol inhaler 1 puff inhalation Q6H PRN PRN (Reason: Sob &/Or Wheezing) RF: 0 albuterol sulfate 90 mcg/actuation HFA aerosol inhaler 1 amp inhalation Q4H PRN PRN (Reason: Sob &/Or Wheezing) RF: 0 Protonix 40 mg PO DAILY RF: 0 prednisone 10 MG tablet See Taper mg PO DAILY Qty: 30 RF: 0 lisinopril 20 mg tablet 20 mg PO DAILY Qty: 30 RF: 0 Primary Care Provider: Helder Camejo Referrals: Helder Camejo MD [Primary Care Provider] - As soon as possible Disposition Disposition: Home, Self Care
[2021-06-17 12:23] LABS: Absolute Lymphocyte Count 1.16 X10^3/uL (0.83-4.51); Absolute Neutrophil Count 6.4 X10^3/uL (2.0-7.7); Basophil# 0.06 X10^3/uL; Basophil% 0.7 % (0-1); Eosinophil# 0.17 X10^3/uL; Hematocrit 34.4 % (40-54); Hemoglobin 10.6 g/dL (13.0-16.5); Lymphocyte # 1.16 X10^3/ul (0.83-4.51); Lymphocyte % 13.5 % (19-41); Mean Corp Hgb Conc 30.8 g/dL (32-36); Mean Corpuscular Hgb 30.6 pg (27.0-32.0); Mean Corpuscular Volume 99.4 fL (80-94); Mean Platelet Vol. 10.8 fl (6.2-12.0); Monocyte# 0.79 X10^3/uL; Monocyte% 9.2 % (0-10); NRBC Flagged by Analyzer 0 % (0-5); Neutrophil # 6.38 X10^3/uL (2.7-7.7); Neutrophil % 74.1 % (47-70); Platelet Count 168 K/mm3 (150-450); RBC Distribution Width CV 15.6 % (11.6-14.6); RBC Distribution Width SD 56.5 fl (35.1-43.9); Red Blood Count 3.46 M/mm3 (4.6-6.2); White Blood Count 8.6 K/mm3 (4.4-11.0)
--- NOTE | 2021-06-17 12:30 | CT_ITS ---
EXAM: CT CERVICAL SPINE WITHOUT INTRAVENOUS CONTRAST CLINICAL INDICATION: Injury, fall, pain TECHNIQUE: Helically acquired images were obtained of the cervical spine without intravenous contrast. 2D reformatted images were reviewed. This CT exam was performed using one or more of the following dose reduction techniques: automated exposure control, adjustment of the mA and/or kV according to patient size, and/or use of iterative reconstruction technique. This report was created using [employer] report generation technology. COMPARISON: None. FINDINGS: VERTEBRAE: Anterior spondylolisthesis at C3, C4 and C5. No fracture. No discrete lytic or blastic abnormality. Normal craniocervical junction and cervicothoracic junction. DISCS/SPINAL CANAL/NEURAL FORAMINA: Disc space narrowing at C3-C4 and C4-C5 uncovertebral hypertrophy causing bilateral foraminal narrowing. SOFT TISSUES: Unremarkable. No prevertebral soft tissue swelling. VASCULATURE: Atherosclerosis of the carotid arteries. LYMPH NODES: Unremarkable. No cervical adenopathy. LUNG APICES: Unremarkable as visualized. Clear. CT/Spine Cervical without Contras IMPRESSION: No acute findings in the cervical spine. Electronically Signed: Peña Lobo MD (Brooks) at 12:47 EDT Reading Location ID and State: [address] [place] [address] , Service support ,
--- NOTE | 2021-06-17 12:30 | CT_ITS ---
STUDY: CT BRAIN WITHOUT CONTRAST REASON FOR EXAM: Male, 60 years old. fall, pain RADIATION DOSAGE (If Supplied By Facility): CTDIvol = ( 44.99 ) mGy, DLP = ( 880.47 ) mGycm TECHNIQUE: Transaxial CT imaging of the brain was performed without administration of intravenous contrast material. Individualized dose optimization techniques were used for this CT. COMPARISON: 08/25/2019 FINDINGS: Normal soft tissue structures. Left temporal craniotomy. Normal size ventricles and extra-axial spaces for the patient''s age. Encephalomalacia and gliosis of the left temporal lobe is stable. Normal basal ganglia and thalami. Normal brainstem. Normal cerebellum. There is no intracranial hemorrhage. There are no findings of an acute ischemic infarction. Normal visualized paranasal sinuses. CT/Brain/Head without Contrast IMPRESSION: Stable, nonacute unenhanced CT scan of the brain. Electronically Signed: Peña Lobo MD (Brooks) at 12:44 EDT ,
[2021-06-17 12:31] LABS: International Normalized Ratio 1.1; Prothrombin Time (Protime)PT. 13.4 SECONDS (11.7-14.9)
[2021-06-17 12:32] LABS: Partial Thromboplast Time 26.2 Seconds (24.1-36.2)
--- NOTE | 2021-06-17 12:35 | RAD_ITS ---
STUDY: X-RAY - RIGHT ELBOW REASON FOR EXAM: Male, 60 years old. Fall 2 days ago, pain TECHNIQUE: 3 view(s) of the elbow. COMPARISON: None. FINDINGS: Normal visualized humerus, radius and ulna. Normal radiocapitellar and ulnotrochlear articulations. The soft tissue structures are unremarkable. RAD/Elbow min 3 Views IMPRESSION: Normal x-ray examination of the elbow. Electronically Signed: Peña Lobo MD (Brooks) at 12:48 EDT ,
--- NOTE | 2021-06-17 12:35 | RAD_ITS ---
STUDY: X-RAY CHEST REASON FOR EXAM: Male, 60 years old. sob TECHNIQUE: AP COMPARISON: 08/25/2019 FINDINGS: EKG leads project over the chest. The lungs are clear and expanded. There is no demonstrated pleural abnormality. Normal size heart. Normal mediastinum and anita. Normal visualized pulmonary arteries. Atherosclerosis of the aortic arch. Normal visualized thoracic spine. Normal visualized ribs, clavicles, and shoulders. There is no demonstrated abnormality of the visualized soft tissue structures of the upper abdomen. RAD/Chest 1 View (Portable) IMPRESSION: Normal x-ray examination of the chest. Electronically Signed: Peña Lobo MD (Brooks) at 12:49 EDT ,
[2021-06-17 12:38] LABS: Anion Gap 1 (5-15); BUN 12 mg/dL (7-18); BUN/Creat Ratio 16.7 RATIO (10-20); Calcium,Total 9.3 mg/dL (8.5-10.1); Chloride 105 mmol/L (98-107); Creatinine, Serum 0.72 mg/dL (0.70-1.30); EST Glomerular Filtration Rate 119 mL/min (>60); Est Glom Filt Rate - Afr Amer 144 mL/min (>60); Estimated Creatinine Clearance 115.47 ml/min; Glucose 133 mg/dL (74-106); Potassium 4.2 mmol/L (3.5-5.1); Sodium Level 139 mmol/L (136-145); Troponin-I HS 12 pg/mL (3.0-78.0)
[2021-06-17 14:27] LABS: Bacteria 0 SEEN /hpf (None Seen); Mucous, Urine 0 SEEN /hpf (<or=2+); Red Blood Cells-Urine 0 SEEN /hpf (0-5); White Blood Cells 0 SEEN /hpf (0-5)
[2021-06-17 14:29] VITALS: BP 162/75; PULSE 88; RESP 20; O2SAT 95
[2021-06-17 14:31] LABS: Color, Urine Yellow (Yellow); Glucose, Dipstick Normal (Normal); Ketone-Dipstick Negative (Negative); Leukocyte Esterase-Dipstick 25 /ul (Negative); Nitrite-Dipstick Negative (Negative); Occult Blood-Urine 10 /ul (Negative); Protein-Dipstick 30 mg/dl (Negative); Specific Gravity, Urine 1.015 (1.002-1.030); Urine Urobilinogen 4 mg/dl (Normal)
[2021-06-17 14:35] LABS: Urine Bilirubin Dipstick 1 mg/dL (Negative)
[2021-06-17 14:36] LABS: Urine Clarity Clear (Clear)
[2021-06-17 14:47] LABS: Squamous Epithelial Cells - UA 0-5 SEEN /hpf (0-5)
[2021-06-17 15:53] VITALS: BP 156/81; PULSE 70; RESP 18; O2SAT 96
== END 2021-06-17 15:54 | disposition home or self-care (01) ==
PROVIDERS: Emergency Provider Emergency Medicine; PCP Family Medicine; Visit Provider Emergency Medicine
DX: R29.810 Facial weakness (principal); G40.909 Epilepsy, unspecified, not intractable, without status epilepticus; E11.9 Type 2 diabetes mellitus without complications; S01.01XA Laceration without foreign body of scalp, initial encounter; F17.210 Nicotine dependence, cigarettes, uncomplicated; R41.0 Disorientation, unspecified; I10 Essential (primary) hypertension; W01.0XXA Fall on same level from slipping, tripping and stumbling without subsequent striking against object, initial encounter; Y93.9 Activity, unspecified; Y92.9 Unspecified place or not applicable; F43.10 Post-traumatic stress disorder, unspecified; Z86.73 Personal history of transient ischemic attack (TIA), and cerebral infarction without residual deficits; Z85.528 Personal history of other malignant neoplasm of kidney; Z79.899 Other long term (current) drug therapy; F32.A Depression, unspecified; Z79.82 Long term (current) use of aspirin
CPT/HCPCS: 70450; 71045; 72125; 73080; 80048; 81001; 84484; 85025; 85610; 85730; 93005; 99285

== ENCOUNTER 2022-09-05 20:28 | Emergency (ER) | payer MEDICAID, SELFPAY ==
[2022-09-05 20:28] VITALS: BP 184/97; PULSE 93; RESP 23; TEMP 36.9; O2SAT 94; BMI 39.0
--- NOTE | 2022-09-05 20:28 | EKG12_ITS ---
Test Reason : DYSRHYTHMIA Blood Pressure : / mmHG Vent. Rate : 092 BPM Atrial Rate : 092 BPM P-R Int : 192 ms QRS Dur : 076 ms QT Int : 328 ms P-R-T Axes : 026 -27 061 degrees QTc Int : 405 ms Normal sinus rhythm Septal infarct , age undetermined Abnormal ECG Confirmed by CRISTAL CORDERO, CHAZ ([id number]), online content editor RICHARD OTERO ([id number]) on 09/09/2022 8:01:49 AM Referred By: RAVI Confirmed By:CHAZ BEE MD
[2022-09-05 21:28] VITALS: BP 107/77; PULSE 92; RESP 17; O2SAT 95
--- NOTE | 2022-09-05 21:31 | EX.ED.DYSGE1 ---
HPI History of Present Illness Chief Complaint: Allergic Reaction Narrative Narrative: 61-year-old male presenting for allergic reaction. He states he started doxycycline a few days ago for cellulitis on the left tibia. He states that he was put on doxycycline this time to see if it would be effective. Apparently he was on this before. He does not recall this. He states he can usually tolerate amoxicillin or penicillins. Patient states that he feels like his throat is tight and that he is having trouble catching his breath. He states his rash is improved some. No fevers or chills. No chest pain. 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 Hypertension MDD (major depressive disorder) Mild cognitive impairment Porokeratosis PTSD (post-traumatic stress disorder) Pulmonary emphysema Renal cell carcinoma Renal mass Stroke Type 2 diabetes mellitus Home Medications carbamazepine 200 mg tablet 400 mg PO BIDCM seizure, hx TBI 01/08/13 [History Last Taken 08/25/19 08:00] galantamine 4 mg tablet 4 mg PO BIDCM memory 01/08/13 [History Last Taken 08/25/19 08:00] buspirone 30 mg tablet 15 mg PO BID depression 07/13/14 [History Last Taken 08/25/19] lidocaine 5 % topical patch 1 patch topical DAILY PRN PRN Pain 08/10/14 [History Last Taken 08/22/19] lorazepam 1 mg tablet 1 mg PO TID PRN PRN Anxiety ##7 08/11/14 [Rx Last Taken 07/25/17] tamsulosin 0.4 mg capsule 0.4 mg PO DAILY prostate 01/01/17 [History Last Taken 08/25/19 08:00] aspirin 81 mg chewable tablet 81 mg PO DAILY@0800 07/27/17 [Rx Last Taken Unknown] Protonix 40 mg PO DAILY indigestion 08/25/19 [History Last Taken 08/25/19 08:00] albuterol sulfate 90 mcg/actuation aerosol inhaler 1 amp inhalation Q4H PRN PRN Sob &/Or Wheezing 08/25/19 [History Last Taken 08/25/19 16:00] albuterol sulfate 90 mcg/actuation aerosol inhaler 1 puff inhalation Q6H PRN PRN Sob &/Or Wheezing 08/25/19 [History Last Taken Unknown] fluticasone 500 mcg-salmeterol 50 mcg/dose blistr powdr for inhalation 1 blist inhalation BID COPD 08/25/19 [History Last Taken 08/25/19] ipratropium 0.5 mg-albuterol 3 mg (2.5 mg base)/3 mL nebulization soln 1 amp inhalation Q4H PRN PRN Sob &/Or Wheezing 08/25/19 [History Last Taken 08/25/19 08:00] prednisone 10 mg tablet See Taper PO DAILY #30 tabs 08/28/19 [Rx Last Taken Unknown] lisinopril 20 mg tablet 20 mg PO DAILY #30 tabs 04/27/21 [Rx Last Taken Unknown] amoxicillin 875 mg-potassium clavulanate 125 mg tablet 1 tab PO BID #20 tabs 09/05/22 [Rx Last Taken Unknown] diphenhydramine HCl 25 mg capsule (Benadryl) 25 mg PO TID PRN allergic reaction #30 caps 09/05/22 [Rx Last Taken Unknown] epinephrine 0.3 mg/0.3 mL injection, auto-injector 0.3 mg (0.3 mL) IM Q4H PRN anaphylaxis #2 ea 09/05/22 [Rx Last Taken Unknown] prednisone 50 mg tablet 50 mg PO DAILY PRN allergic reaction #5 tabs 09/05/22 [Rx Last Taken Unknown] Allergy/AdvReac Type Severity Reaction Status Date / Time celecoxib [From Celebrex] Allergy Unknown Verified 04/27/21 16:23 doxycycline Allergy Anaphylaxis Verified 09/05/22 20:34 NSAIDS (Non-Steroidal Allergy Unknown Verified 04/27/21 16:23 Anti-Inflamma phenytoin sodium Allergy Unknown Verified 04/27/21 16:23 [From Dilantin] phenytoin sodium extended Allergy Unknown Verified 04/27/21 16:23 [From Dilantin] pregabalin [From Lyrica] Allergy Unknown Verified 04/27/21 16:23 quetiapine fumarate Allergy Unknown Verified 04/27/21 16:23 [From Seroquel] tramadol Allergy Unknown Verified 04/27/21 16:23 diclofenac AdvReac Rash Verified 04/27/21 16:23 divalproex sodium AdvReac Unknown Verified 04/27/21 16:23 [From Depakote] gabapentin [From Neurontin] AdvReac Unknown Verified 04/27/21 16:23 paroxetine AdvReac Other Verified 09/05/22 20:34 zonisamide AdvReac Other Verified 09/05/22 20:34 Social History Smoking Status: Light Smoker (<10/day) ROS ROS ED Constitutional Constitutional ED: Denies chills, fever(s) or sweats Eyes Eyes: Denies blurry vision or change in vision ENT ENT ED: Reports other Details: Tightness ; Denies ear pain or sore throat Cardiovascular Cardiovascular: Denies chest pain, palpitations or racing heartbeat Respiratory/Chest Respiratory/Chest: Reports cough and dyspnea; Denies sputum Gastrointestinal Gastrointestinal: Denies abdominal pain, constipation, diarrhea, nausea or vomiting Genitourinary Genitourinary ED: Denies dysuria, hematuria or urinary frequency Musculoskeletal Musculoskeletal: Denies arthralgias, myalgias or neck pain Integumentary Denies abscess, Abrasions or rash Neurologic Neurologic: Denies headache(s), paresthesias or weakness Psychiatric Psychiatric: Denies anxiety, depression, suicidal ideation or suicidal thoughts Endocrine Endocrinology: Denies polydipsia or polyuria EXAM Physical Exam Const Vital Signs: 09/05/22 20:28 09/05/22 21:28 09/05/22 22:00 Temperature 98.4 F Temperature Source Temporal Pulse Rate 93 92 92 Respiratory Rate 23 H 17 23 H Blood Pressure 184/97 H 107/77 159/81 H Blood Pressure Mean 126 87 107 Pulse Ox 94 95 95 Oxygen Delivery Method Room Air Room Air Room Air 09/05/22 23:00 Temperature Temperature Source Pulse Rate 90 Respiratory Rate 22 H Blood Pressure 156/85 H Blood Pressure Mean 108 Pulse Ox 92 Oxygen Delivery Method Room Air Positive well nourished and obese General Appearance ED: NAD Nutritional Appearance: obese HEENT Reports moist mucous membranes Eyes PERRL and EOMs intact bilaterally Neck no lymphadenopathy Neck Narrative: No stridor Chest Wall inspection of chest normal Resp normal respiratory effort and clear to auscultation bilaterally Auscultation: Negative for rales, rhonchi or wheezes Cardio regular rate and regular rhythm GI normal to inspection, nondistended, normoactive bowel sounds Extremity normal to inspection Neuro oriented x3 Psych mental status grossly normal Skin Skin Narrative: There is an area of cellulitis on the left tibia which is approximately 15 cm x 4 cm. No lymphangitic streaking. Mildly tender to palpation. Mild increased warmth. MDM MDM MDM Narrative Medical decision making narrative: Patient presenting with shortness of breath and feels like he is having allergic reaction. He was treated with doxycycline for cellulitis. We have documented here that this caused anaphylaxis in him. He had a day and a half of symptoms. He is treated with epinephrine, Benadryl, Solu-Medrol, Pepcid. I will assess a CBC and BMP since he has cellulitis. I will obtain a chest x-ray as well. Reevaluation at 10 PM the patient is doing much better. He states he can swallow. He feels much better. He states he does not want to stay in the ER. I recommended monitoring for at least another hour but he states he wants to leave by 1030 so he can have his friends pick him up. For this reason I will give him an EpiPen, prednisone, Benadryl for home from our pharmacy. He was also switched to Augmentin because he is allergic to doxycycline. He is given strict return precautions. Impression: 1. Allergic reaction Lab Data Labs: Laboratory Results - last 24 hr 09/05/22 09/05/22 22:05 22:05 WBC 9.5 RBC 3.97 L Hgb 14.6 Hct 41.8 MCV 105.3 H MCH 36.8 H MCHC 34.9 RDW Std Deviation 52.9 H RDW Coeff of Jass 13.7 Plt Count 186 MPV 11.1 Immature Gran % (Auto) 0.600 Neut % (Auto) 66.1 Lymph % (Auto) 20.1 [place] % (Auto) 9.7 Eos % (Auto) 2.5 Baso % (Auto) 1.0 Absolute Neuts (auto) 6.3 Absolute Lymphs (auto) 1.90 Nucleated RBC % 0 Sodium 132 L Potassium 4.1 Chloride 96 L Carbon Dioxide 28.0 Anion Gap 8 BUN 9 Creatinine 0.62 L Estim Creat Clear Calc 128.29 Est GFR (MDRD) Af Amer 171 Est GFR (MDRD) Non-Af 142 BUN/Creatinine Ratio 14.6 Glucose 92 Calcium 9.4 Radiography Diagnostic Testing: Clinical Impression(s) from Imaging Studies Chest X-Ray 09/05/22 22:13 IMPRESSION: No evidence of acute cardiopulmonary disease. Electronically Signed: Russ Blum DO at 22:30 EDT , Discharge Plan Triage Chief Complaint: Allergic Reaction ED Provider: Lai Bergman Dx/Rx/DC Orders Instructions: ED Anaphylaxis Prescriptions: New amoxicillin-pot clavulanate 875-125 mg tablet 1 tab PO BID Qty: 20 0RF epinephrine 0.3 mg/0.3 mL auto-injector 0.3 mg IM Q4H PRN (Reason: anaphylaxis) Qty: 2 0RF prednisone 50 mg tablet 50 mg PO DAILY PRN (Reason: allergic reaction) Qty: 5 0RF diphenhydramine HCl [Benadryl] 25 mg capsule 25 mg PO TID PRN (Reason: allergic reaction) Qty: 30 0RF No Action galantamine 4 MG tablet 4 mg PO BIDCM Label Comments: alzheimer's carbamazepine 200 MG tablet 400 mg PO BIDCM Label Comments: Seizure buspirone 30 MG tablet 15 mg PO BID Label Comments: depression lidocaine 1 PATCH patch 1 patch topical DAILY PRN PRN (Reason: Pain) Label Comments: Pain lorazepam 1 MG tablet 1 mg PO TID PRN PRN (Reason: Anxiety) Qty: 7 0RF Label Comments: anxiety tamsulosin 0.4 MG capsule 0.4 mg PO DAILY aspirin 81 MG tablet,chewable 81 mg PO DAILY@0800 0RF ipratropium-albuterol 0.5 mg-3 mg(2.5 mg base)/3 mL solution for nebulization 1 amp inhalation Q4H PRN PRN (Reason: Sob &/Or Wheezing) Label Comments: INHALE 3 ML INSTRUCTED FOUR TIMES DAILY. fluticasone propion-salmeterol 500-50 mcg/dose blister with device 1 blist inhalation BID Label Comments: INHALE 1 PUFF INSTRUCTED TWICE DAILY. albuterol sulfate 90 mcg/actuation HFA aerosol inhaler 1 puff inhalation Q6H PRN PRN (Reason: Sob &/Or Wheezing) Label Comments: INHALE 2 PUFFS INSTRUCTED EVERY 4 HOURS NEEDED (FOR COUGH OR WHEEZE). albuterol sulfate 90 mcg/actuation HFA aerosol inhaler 1 amp inhalation Q4H PRN PRN (Reason: Sob &/Or Wheezing) Label Comments: INHALE 2 PUFFS INSTRUCTED EVERY 4 HOURS NEEDED (FOR COUGH OR WHEEZE). Protonix 40 mg PO DAILY prednisone 10 MG tablet See Taper PO DAILY Qty: 30 0RF Taper: Prednisone Taper 40 mg DAILY@0800 for 3 Days and 0 Hour 30 mg DAILY@0800 for 3 Days and 0 Hour 20 mg DAILY@0800 for 3 Days and 0 Hour 10 mg DAILY@0800 for 3 Days and 0 Hour lisinopril 20 mg tablet 20 mg PO DAILY Qty: 30 0RF Primary Care Provider: Helder Camejo Referrals: Helder Camejo MD [Primary Care Provider] - Disposition Disposition: Home, Self Care
[2022-09-05] MEDS: DiphenhydrAMINE 50 MG/ML Syringe IV (21:47)
[2022-09-05] MEDS: MethylPREDNISolone 125 MG/2 ML Vial IV (21:47)
[2022-09-05] MEDS: Epi Pen (EQUIV) 0.3 MG Syringe IM (21:49)
[2022-09-05] MEDS: Famotidine 200 MG/20 ML MDV 20 MG in 0.9% Normal Saline (Pres. free 8 ML 300 MG IV (21:52)
[2022-09-05 22:00] VITALS: BP 159/81; PULSE 92; RESP 23; O2SAT 95
[2022-09-05 22:11] LABS: Absolute Neutrophil Count 6.3 X10^3/uL (2.0-7.7); Basophil# 0.09 X10^3/uL; Eosinophil# 0.24 X10^3/uL; Eosinophils% 2.5 % (0-5); Hematocrit 41.8 % (40-54); Hemoglobin 14.6 g/dL (13.0-16.5); Lymphocyte % 20.1 % (19-41); Mean Corp Hgb Conc 34.9 g/dL (32-36); Mean Corpuscular Hgb 36.8 pg (27.0-32.0); Mean Corpuscular Volume 105.3 fL (80-94); Mean Platelet Vol. 11.1 fl (6.2-12.0); Monocyte# 0.92 X10^3/uL; Monocyte% 9.7 % (0-10); NRBC Flagged by Analyzer 0 % (0-5); Neutrophil # 6.25 X10^3/uL (2.7-7.7); Neutrophil % 66.1 % (47-70); Platelet Count 186 K/mm3 (150-450); RBC Distribution Width CV 13.7 % (11.6-14.6); RBC Distribution Width SD 52.9 fl (35.1-43.9); Red Blood Count 3.97 M/mm3 (4.6-6.2); White Blood Count 9.5 K/mm3 (4.4-11.0)
--- NOTE | 2022-09-05 22:13 | RAD_ITS ---
INDICATION: dyspnea EXAMINATION/TECHNIQUE: X-RAY - XR Chest 1 View COMPARISON: 06/17/2021. FINDINGS: LINES/DEVICES: None. LUNGS: No consolidation or evidence of an effusion. No evidence of edema or a pneumothorax. MEDIASTINUM AND CARDIOVASCULAR STRUCTURES: Cardiac silhouette is normal in size and contour. Mediastinum is unremarkable. BONES AND SOFT TISSUES: No acute abnormality. RAD/Chest 1 View (Portable) IMPRESSION: No evidence of acute cardiopulmonary disease. Electronically Signed: Russ Blum DO at 22:30 EDT ,
[2022-09-05 22:24] LABS: Anion Gap 8 (5-15); BUN 9 mg/dL (7-18); BUN/Creat Ratio 14.6 RATIO (10-20); Calcium,Total 9.4 mg/dL (8.5-10.1); Chloride 96 mmol/L (98-107); Creatinine, Serum 0.62 mg/dL (0.70-1.30); EST Glomerular Filtration Rate 142 mL/min (>60); Est Glom Filt Rate - Afr Amer 171 mL/min (>60); Estimated Creatinine Clearance 128.29 ml/min; Glucose 92 mg/dL (74-106); Potassium 4.1 mmol/L (3.5-5.1); Sodium Level 132 mmol/L (136-145)
[2022-09-05 23:00] VITALS: BP 156/85; PULSE 90; RESP 22; O2SAT 92
[2022-09-05 23:22] VITALS: BP 158/81; PULSE 82; RESP 18; O2SAT 96
== END 2022-09-05 23:29 | disposition home or self-care (01) ==
PROVIDERS: Emergency Provider Student in an Organized Health Care Education/Training Program; PCP Family Medicine; Visit Provider Student in an Organized Health Care Education/Training Program
DX: T36.4X1A Poisoning by tetracyclines, accidental (unintentional), initial encounter (principal); J43.9 Emphysema, unspecified; G40.109 Localization-related (focal) (partial) symptomatic epilepsy and epileptic syndromes with simple partial seizures, not intractable, without status epilepticus; E11.9 Type 2 diabetes mellitus without complications; F17.200 Nicotine dependence, unspecified, uncomplicated; I10 Essential (primary) hypertension; R06.02 Shortness of breath; Z79.899 Other long term (current) drug therapy; F32.9 Major depressive disorder, single episode, unspecified; Z79.82 Long term (current) use of aspirin; Z86.73 Personal history of transient ischemic attack (TIA), and cerebral infarction without residual deficits; Z79.51 Long term (current) use of inhaled steroids
CPT/HCPCS: 71045; 80048; 85025; 93005; 96372; 96374; 96375; 99285; A4216; J3490

== ENCOUNTER → 2022-10-27 | Outpatient (CLI) | payer MEDICAID, SELFPAY ==
[2022-10-27 17:33] LABS: BNP,B-Type NATRIURETIC PEPTIDE 122.8 pg/mL (0-100)
== END | disposition home or self-care (01) ==
LOC: LABSPEC 16:45
PROVIDERS: PCP Family Medicine; Referring Provider Nurse Practitioner Family; Visit Provider Nurse Practitioner Family
DX: R60.9 Edema, unspecified (principal); R06.02 Shortness of breath
CPT/HCPCS: 83880

== ENCOUNTER → 2022-11-26 | Outpatient (CLI) | payer MEDICAID, SELFPAY ==
--- NOTE | 2022-11-26 07:48 | MRI_ITS ---
STUDY: MRI LEFT MIDFOOT WITH/WITHOUT CONTRAST REASON FOR EXAM: Male, 62 years old. Superficial mass on plantar surface of foot adjacent to the base of the fifth metatarsal. TECHNIQUE: Standarized fat and water weighted pulse sequences were obtained before and after the intravenous administration of 23 cc of Clariscan contrast. COMPARISON: Left foot x-rays dated June 30, 2011. FINDINGS: Normal talonavicular articulation. Normal calcaneocuboid articulation. Normal navicular-cuneiform articulations. Normal intercuneiform articulations. Normal first tarsometatarsal articulation. Normal Lisfranc ligament. Normal second and third tarsometatarsal articulations. Normal cuboid fourth and cuboid fifth tarsometatarsal articulation. Normal first through fifth metatarsi. Normal tibialis anterior tendon. Normal extensor hallucis longus tendon. Normal extensor digitorum longus tendons. Normal peroneus longus tendon and distal insertion. Normal peroneus brevis tendon and distal insertion. Normal intrinsic muscles of the mid and forefoot region. Normal extensor digitorum brevis muscle. Superficial subcutaneous soft tissue edema on the inversion recovery images which shows minimal irregular enhancement on the postcontrast images. Multiple small fluid collections are within the area of enhancement. Findings are most compatible with marked cystic adventitial bursitis with hyperemia. Indolent infection could have a similar appearance (sagittal series 8 images 7-12, sagittal postcontrast series 9 images 2-A and axial postcontrast series 10 images 2-10).. MRI/Lower Ext No Joint W/WO Cont IMPRESSION: Superficial enhancing subcutaneous lesion with multiple small fluid collections. Differential diagnosis is that of cystic adventitial bursitis or, less likely, and alignment superficial infection. No aggressive characteristics to the lesion. No other abnormality. Electronically Signed: Don Mueller MD at 15:09 EDT ,
[2022-11-26 08:11] LABS: CREATININE FINGERSTICK < 0.9 mg/dL (0.70-1.30); EGFR FINGERSTICK > 60.0000 mL/min (>60)
== END | disposition home or self-care (01) ==
LOC: MRI 07:05
PROVIDERS: PCP Family Medicine; Referring Provider Podiatrist Foot & Ankle Surgery; Visit Provider Podiatrist Foot & Ankle Surgery
DX: M77.52 Other enthesopathy of left foot and ankle (principal); Q66.70 Congenital pes cavus, unspecified foot
CPT/HCPCS: 73720; A9575

== ENCOUNTER 2024-03-24 08:19 | Observation (INO) | payer MEDICAID, SELFPAY ==
[2024-03-24 08:21] VITALS: BP 137/76; PULSE 88; RESP 16; TEMP 36.3; O2SAT 95; BMI 34.5
--- NOTE | 2024-03-24 08:34 | CT_ITS ---
STUDY: CT CERVICAL SPINE WITHOUT CONTRAST REASON FOR EXAM: Male, 63 years old. Cervical pain due to a fall. RADIATION DOSAGE (If Supplied By Facility): CTDIvol = ( 29.90 ) mGy, DLP = ( 580.61 ) mGycm TECHNIQUE: High resolution transaxial imaging was performed without contrast material. Sagittal and coronal images were reconstructed. Individualized dose optimization techniques were used for this CT. COMPARISON: Comparison is made with prior study June 17, 2021. FINDINGS: Normal craniovertebral junction. Normal anterior atlantoaxial articulation. Normal odontoid process. Normal cervical lordosis. Normal vertebral bodies and posterior osseous elements. C2-3: Normal endplates. Normal disc height and morphology. Normal central canal and intervertebral neuroforamina. C3-4: Moderate degree of disc space narrowing. Spondylosis. Uncovertebral arthrosis. Mild degree of right neural foraminal stenosis. C4-5: Moderate degree of disc space narrowing. Uncovertebral arthrosis. Mild degree of neural foraminal stenosis. C5-6: Mild degree of disc space narrowing. No significant abnormality is seen. Findings suggestive of a hemangioma of the C5 vertebra. C6-7: Normal endplates. Normal disc height and morphology. Normal central canal and intervertebral neuroforamina. C7-T1: Normal endplates. Normal disc height and morphology. Normal central canal and intervertebral neuroforamina. Atherosclerotic calcification of the carotid bulbs bilaterally. CT/Spine Cervical without Contras IMPRESSION: Multilevel degenerative changes, as described above. Electronically Signed: Jelani Weller MD at 9:18 EST ,
--- NOTE | 2024-03-24 08:34 | CT_ITS ---
STUDY: CT BRAIN WITHOUT CONTRAST REASON FOR EXAM: Male, 63 years old. Head injury due to a fall. RADIATION DOSAGE (If Supplied By Facility): CTDIvol = ( 44.99 ) mGy, DLP = ( 863.60 ) mGycm TECHNIQUE: Transaxial CT imaging of the brain was performed without administration of intravenous contrast material. Individualized dose optimization techniques were used for this CT. COMPARISON: Comparison is made with prior study dated June 17, 2021. FINDINGS: Normal soft tissue structures. Once again, the patient is status post left temporal craniotomy. There is mild cerebral atrophy with widening of the extra-axial spaces and ventricular dilatation. Stable encephalomalacia and gliosis of the left temporal lobe secondary to prior surgery. This is unchanged. Normal basal ganglia and thalami. Normal brainstem. Normal cerebellum. There is no intracranial hemorrhage. There are no findings of an acute ischemic infarction. Normal visualized paranasal sinuses. CT/Brain/Head without Contrast IMPRESSION: Chronic involutional changes of the brain. Stable S malacia in the left temporal lobe secondary to prior left temporal craniotomy. Electronically Signed: Jelani Weller MD at 9:16 EST ,
--- NOTE | 2024-03-24 08:34 | EKG12_ITS ---
Test Reason : FALL Blood Pressure : */* mmHG Vent. Rate : 88 BPM Atrial Rate : 88 BPM P-R Int : 184 ms QRS Dur : 84 ms QT Int : 370 ms P-R-T Axes : 17 -18 61 degrees QTcB Int : 447 ms Normal sinus rhythm Normal ECG Confirmed by CRISTAL CORDERO, CHAZ ([id number]), map editor RICHARD OTERO ([id number]) on 03/25/2024 8:09:56 AM Referred By: Confirmed By: CHAZ BEE MD
--- NOTE | 2024-03-24 08:36 | EDS_ITS ---
HPI History of Present Illness Chief Complaint: Other, Pain/Inj Detail of Chief Complaint: Pain all over Informant: patient Narrative Narrative: Patient presents the emergency department complaint of pain all over. Patient states that he fell at his dog about 6 days ago. Patient had a fell into a gate and struck his face on it. He hurt both knees and EMS was called and apparently they bandaged up his right knee because he had some blood from it. Since that time has been having increased pain. Complains of pain in his neck as well as pain to the entire right side of his body more than the left but actually has pain all over. He is having a hard time getting into position to sit up. Patient lives alone but has a caregiver that comes daily. 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 Denies anticoagulation. 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3 mL) IM Q4H PRN 09/05/22 Unknown Rx injection, auto-injector anaphylaxis #2 ea buspirone 15 mg tablet 15 mg PO BID 03/24/24 03/23/24 History ferrous sulfate 325 mg (65 mg 325 mg PO DAILY 03/24/24 03/23/24 History iron) tablet fluticasone fur. 100 mcg-umeclid 1 ea inhalation DAILY 03/24/24 03/23/24 History 62.5 mcg-vilant 25 mcg inhalat.powder (Trelegy Ellipta) glecaprevir 100 mg-pibrentasvir 40 3 tab PO DAILY 03/24/24 03/23/24 History mg tablet (Mavyret) guaifenesin 600 mg tablet, 600 mg PO BID 03/24/24 03/23/24 History extended release 12 hr (Mucus Relief ER) liraglutide 0.6 mg/0.1 mL (18 mg/3 0.6 mg subcut DAILY 03/24/24 03/23/24 History mL) subcutaneous pen injector (Victoza 2-Jerrod) lisinopril 40 mg tablet 40 mg PO DAILY 03/24/24 03/23/24 History metformin 500 mg tablet,extended 500 mg PO BID 03/24/24 03/23/24 History release 24 hr metoprolol succinate 50 mg 50 mg PO DAILY 03/24/24 03/23/24 History tablet,extended release 24 hr pantoprazole 40 mg tablet,delayed 40 mg PO DAILY 03/24/24 03/23/24 History release potassium chloride 10 mEq 10 meq PO BID 03/24/24 03/23/24 History tablet,extended release Allergy/AdvReac Type Severity Reaction Status Date / Time celecoxib (From Celebrex) Allergy Unknown Verified 03/24/24 08:25 doxycycline Allergy Anaphylaxis Verified 03/24/24 08:25 NSAIDS (Non-Steroidal Allergy Unknown Verified 03/24/24 08:25 Anti-Inflamma phenytoin sodium (From Allergy Unknown Verified 03/24/24 08:25 Dilantin) phenytoin sodium extended Allergy Unknown Verified 03/24/24 08:25 (From Dilantin) pregabalin (From Lyrica) Allergy Unknown Verified 03/24/24 08:25 quetiapine fumarate (From Allergy Unknown Verified 03/24/24 08:25 Seroquel) tramadol Allergy Unknown Verified 03/24/24 08:25 diclofenac AdvReac Rash Verified 03/24/24 08:25 divalproex sodium (From AdvReac Unknown Verified 03/24/24 08:25 Depakote) gabapentin (From Neurontin) AdvReac Unknown Verified 03/24/24 08:25 paroxetine AdvReac Other Verified 03/24/24 08:25 zonisamide AdvReac Other Verified 03/24/24 08:25 Surgical History 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 Social History Smoking Status: Light Smoker (<10/day) ROS ROS ED Review of Systems ROS Unobtainable: other Constitutional Constitutional ED: Reports lethargy; Denies chills, fever(s), sweats or weight loss Eyes Eyes: Denies blurry vision, change in vision or diplopia ENT ENT ED: Denies rhinorrhea or sore throat Cardiovascular Cardiovascular: Denies chest pain, orthopnea or racing heartbeat Respiratory/Chest Respiratory/Chest: Reports dyspnea and dyspnea on exertion; Denies cough, orthopnea or sputum Gastrointestinal Gastrointestinal: Denies abdominal pain, diarrhea, nausea or vomiting Genitourinary Genitourinary ED: Denies dysuria, hematuria or urinary frequency Musculoskeletal Musculoskeletal: Reports back pain, myalgias and neck pain; Denies arthralgias Integumentary Denies abscess, Abrasions or rash Neurologic Neurologic: Denies headache(s) or weakness Psychiatric Psychiatric: Denies anxiety, depression or suicidal thoughts Endocrine Endocrinology: Denies polydipsia, polyphagia or polyuria Hematologic/Lymphatic Hematologic/Lymphatic: Denies easy bleeding, easy bruising or lymphadenopathy Allergic/Immunologic Allergic/Immunologic ED: Denies mouth swelling, tongue swelling or urticaria EXAM Physical Exam Const Vital Signs: 03/24/24 08:21 03/24/24 08:24 03/24/24 10:27 Temperature 97.4 F L 98.7 F Temperature Source Oral Pulse Rate 88 84 Respiratory Rate 16 15 Respiratory Effort Normal Non-Labored Respiratory Pattern Normal Blood Pressure 137/76 H 164/78 H Blood Pressure Mean 96 106 Pulse Ox 95 94 Oxygen Delivery Method Room Air Positive well nourished and well developed General Appearance ED: well developed and NAD HEENT Reports TM's clear and moist mucous membranes HEENT Narrative: Old ecchymosis and bruising noted to the left cheek and left lateral orbit. normocephalic; Negative for trauma or tenderness Tympanic Membrane ED: Yes TM's clear Eyes PERRL and EOMs intact bilaterally General Eye ED: Negative for pale conjunctiva or scleral icterus Neck no lymphadenopathy, supple and no JVD General: Negative for tenderness Chest Wall inspection of chest normal and palpation of chest normal Chest Narrative: Diffuse tenderness palpation over the cervical spine and cervical paraspinal musculature. Chest: tenderness Resp normal respiratory effort and clear to auscultation bilaterally Effort and Inspection: Negative for respiratory distress or pain with movement Auscultation: Negative for rhonchi, wheezes or diminished lung sounds Cardio regular rate, regular rhythm, S1 normal heart sound, S2 normal heart sound and no murmurs Peripheral Pulses: pulses 2+ throughout GI normal to inspection, nondistended, normoactive bowel sounds, soft to palpation, non-tender, non-distended and no masses Back/Spine no CVA tenderness and no thoracic nor lumbar tenderness Back/Spine Narrative: Mild diffuse tenderness over the thoracic and lumbar spine. Extremity normal to inspection Extremity Narrative: Healing abrasions to the right knee anteriorly. General Extremety ED: Negative for edema General Extremity: Negative for edema Neuro oriented x3, CN's II-XII intact bilaterally, no sensory deficits noted and gait normal Sensorium / Orientation: awake, alert, oriented to person, oriented to place and oriented to time Motor Exam: strength 5/5 throughout and strength abnormal Psych mental status grossly normal Skin no rashes or lesions noted and no wounds MDM MDM MDM Narrative Medical decision making narrative: Patient presents to the emergency department with complaint of of all over pain including specifically pain in his neck and more on the right side of his body that he has had for about 5 or 6 days. Gives history of fall 6 days ago. Patient having so much discomfort that he is unable to care for himself and get himself to sit up in bed. Evidence of old trauma to the left side of his face noted. He has diffuse tenderness over the cervical spine. IV line established. He was medicated with morphine and Zofran. CBC with differential white count of 8.2 with hemoglobin 10.2. Chemistries unremarkable. LFTs unremarkable. Troponin was normal at 9 and total CPK was 85. Urinalysis normal. I did obtain a CT scan of the brain without contrast that showed no acute intracranial findings. Patient also had a CT of the C-spine that showed degenerative changes without evidence of fracture. I did obtain a chest x-ray that was unremarkable. Patient also had x-rays of the thoracic spine and lumbar spine that did not show any fractures. Discussed findings with patient. Patient feels like he cannot care for himself at home. Will discuss with hospitalist to evaluate patient for admission. Lab Data Attestation: I reviewed the patient's lab results. Labs: Laboratory Results - last 24 hr 03/24/24 03/24/24 08:48 09:44 WBC 8.2 RBC 2.99 L Hgb 10.2 L Hct 33.7 L MCV 112.7 H MCH 34.1 H MCHC 30.3 L RDW Std Deviation 61.1 H RDW Coeff of Jass 14.7 H Plt Count MPV 11.9 Immature Gran % (Auto) 0.700 Neut % (Auto) 71.3 H Lymph % (Auto) 14.3 L [place] % (Auto) 10.7 H Eos % (Auto) 2.3 Baso % (Auto) 0.7 Absolute Neuts (auto) 5.8 Absolute Lymphs (auto) 1.17 Nucleated RBC % 0 Sodium 135 L Potassium 4.0 Chloride 106 Carbon Dioxide 23.0 Anion Gap 6 BUN 11 Creatinine 0.78 Estim Creat Clear Calc 119.37 Est GFR (MDRD) Af Amer 130 Est GFR (MDRD) Non-Af 107 BUN/Creatinine Ratio 14.1 Glucose 111 H Calcium 8.8 Total Bilirubin 1.10 H AST 23 ALT 12 L Alkaline Phosphatase 104 Total Creatine Kinase 85 Troponin I High Sens 9 Total Protein 8.0 Albumin 2.6 L Globulin 5.4 H Albumin/Globulin Ratio 0.5 L Urine Color Yellow Urine Clarity Clear Urine pH 6.0 Ur Specific [place] 1.015 Urine Protein 15 H Urine Glucose (UA) Normal Urine Ketones Negative Urine Occult Blood 10 H Urine Nitrite Negative Urine Bilirubin 1 H Urine Urobilinogen 12 H Ur Leukocyte Esterase 100 H Urine RBC 0 SEEN Urine WBC 0-5 SEEN Ur Squamous Epith Cells 0-5 SEEN Urine Bacteria 0 SEEN Urine Mucus 0 SEEN Radiography Diagnostic Testing: Clinical Impression(s) from Imaging Studies Brain CT 03/24/24 08:34 IMPRESSION: Chronic involutional changes of the brain. Stable S malacia in the left temporal lobe secondary to prior left temporal craniotomy. Electronically Signed: Jelani Weller MD at 9:16 EST , Cervical Spine CT 03/24/24 08:34 IMPRESSION: Multilevel degenerative changes, as described above. Electronically Signed: Jelani Weller MD at 9:18 EST , Lumbar Spine X-Ray 03/24/24 08:38 IMPRESSION: Normal x-ray examination of the lumbar spine. Calcified gallstone. Atherosclerotic calcification of the abdominal aorta. Electronically Signed: Jelani Weller MD at 9:38 EST , Thoracic Spine X-Ray 03/24/24 08:38 IMPRESSION: Increased kyphosis. Disc space narrowing and spondylosis in the lower thoracic spine. Electronically Signed: Jelani Weller MD at 9:38 EST , Chest X-Ray 03/24/24 09:05 IMPRESSION: No acute abnormality is seen. Electronically Signed: Jelani Weller MD at 9:43 EST , 1 view chest x-ray obtained interpreted by myself as no evidence of infiltrate or pneumothorax or rib fracture or acute process. Radiology in agreement. 2 view x-rays of thoracic spine obtained interpreted by myself as no evidence of fracture or dislocation. Radiology in agreement. Three-view x-rays of the lumbar spine obtained interpreted by myself as no evidence of fracture or dislocation. Radiology in agreement. EKG Initial EKG: Attestation: I personally reviewed and interpreted this EKG as follows: Comments: Sinus rhythm with ventricular rate of 88 bpm with no acute ST segment changes Discharge Plan Dx/Rx/DC Orders Clinical Impression: Adult failure to thrive, Fall, Closed head injury, Neck pain, Weakness Disposition Disposition: [facility] (Formerly [facility]3] Care [facility]
--- NOTE | 2024-03-24 08:38 | RAD_ITS ---
STUDY: X-RAY - LUMBAR SPINE REASON FOR EXAM: Male, 63 years old. Back pain following a fall. TECHNIQUE: 2 view(s) of the lumbar spine were obtained. COMPARISON: None FINDINGS: Normal lumbar lordosis. There is no substantial scoliosis. There is a normal alignment of the vertebrae. Normal vertebral bodies and endplates. Normal disc space heights. There is atherosclerotic calcification of the abdominal aorta without a demonstrated aneurysm. Calcified gallstone. RAD/Lumbar Spine 2 or 3 Views IMPRESSION: Normal x-ray examination of the lumbar spine. Calcified gallstone. Atherosclerotic calcification of the abdominal aorta. Electronically Signed: Jelani Weller MD at 9:38 EST ,
--- NOTE | 2024-03-24 08:38 | RAD_ITS ---
STUDY: X-RAY - THORACIC SPINE REASON FOR EXAM: Male, 63 years old. Back pain following a fall. TECHNIQUE: 2 view(s) of the thoracic spine were obtained. COMPARISON: None. FINDINGS: There is an increase in the normal thoracic kyphosis. There is no substantial scoliosis. Disc space narrowing and spondylosis in the lower dorsal spine. Atherosclerotic calcification of the aortic arch. RAD/Thoracic Spine 2 Views IMPRESSION: Increased kyphosis. Disc space narrowing and spondylosis in the lower thoracic spine. Electronically Signed: Jelani Weller MD at 9:38 EST ,
[2024-03-24] MEDS: 0.9% Normal Saline (1000mL) 1,000 ML 1000 ML IV (08:42)
[2024-03-24] MEDS: Morphine 4 MG/ML Syringe IV ×2 (08:43→13:11)
[2024-03-24] MEDS: Ondansetron 4 MG/2 ML Vial IV (08:43)
--- NOTE | 2024-03-24 09:05 | RAD_ITS ---
STUDY: X-RAY CHEST REASON FOR EXAM: Male, 63 years old. History of fall. TECHNIQUE: Single AP portable view of the chest. COMPARISON: Comparison is made with prior study dated September 05, 2022. FINDINGS: Hyperinflation. Scattered calcified granulomas. There is no demonstrated pleural abnormality. Normal size heart. Normal mediastinum and anita. Normal visualized pulmonary arteries. There is atherosclerotic calcification of the aortic arch with tortuosity. Normal visualized thoracic spine. Normal visualized ribs, clavicles, and shoulders. There is no demonstrated abnormality of the visualized soft tissue structures of the upper abdomen. RAD/Chest 1 View (Portable) IMPRESSION: No acute abnormality is seen. Electronically Signed: Jelani Weller MD at 9:43 EST ,
[2024-03-24 09:06] LABS: Absolute Lymphocyte Count 1.17 X10^3/uL (0.83-4.51); Absolute Neutrophil Count 5.8 X10^3/uL (2.0-7.7); Basophil# 0.06 X10^3/uL; Basophil% 0.7 % (0-1); Eosinophil# 0.19 X10^3/uL; Eosinophils% 2.3 % (0-5); Hematocrit 33.7 % (40-54); Hemoglobin 10.2 g/dL (13.0-16.5); Lymphocyte # 1.17 X10^3/ul (0.83-4.51); Lymphocyte % 14.3 % (19-41); Mean Corp Hgb Conc 30.3 g/dL (32-36); Mean Corpuscular Hgb 34.1 pg (27.0-32.0); Mean Corpuscular Volume 112.7 fL (80-94); Mean Platelet Vol. 11.9 fl (6.2-12.0); Monocyte# 0.87 X10^3/uL; Monocyte% 10.7 % (0-10); NRBC Flagged by Analyzer 0 % (0-5); Neutrophil # 5.81 X10^3/uL (2.7-7.7); Neutrophil % 71.3 % (47-70); POSITIVE COUNT YES; RBC Distribution Width CV 14.7 % (11.6-14.6); RBC Distribution Width SD 61.1 fl (35.1-43.9); Red Blood Count 2.99 M/mm3 (4.6-6.2); White Blood Count 8.2 K/mm3 (4.4-11.0)
[2024-03-24 09:19] LABS: ALB/GLOB Ratio 0.5 RATIO (0.9-2.4); AST(SGOT) 23 U/L (15-37); Alanine Aminotransfer ALT/SGPT 12 U/L (16-61); Albumin, Serum 2.6 g/dL (3.2-5.0); Alkaline Phosphatase 104 U/L (45-117); Anion Gap 6 (5-15); BUN 11 mg/dL (7-18); BUN/Creat Ratio 14.1 RATIO (10-20); Calcium,Total 8.8 mg/dL (8.5-10.1); Chloride 106 mmol/L (98-107); Creatinine, Serum 0.78 mg/dL (0.70-1.30); EST Glomerular Filtration Rate 107 mL/min (>60); Est Glom Filt Rate - Afr Amer 130 mL/min (>60); Estimated Creatinine Clearance 119.37 ml/min; Globulin 5.4 g/dL (2.2-4.2); Glucose 111 mg/dL (74-106); Sodium Level 135 mmol/L (136-145); Troponin-I HS 9 pg/mL (3.0-78.0)
[2024-03-24 09:20] LABS: CPK Total, Creatine Kinase 85 U/L (39-308)
[2024-03-24 09:41] LABS: Differential Indicated SCAN CRITERIA MET
[2024-03-24 09:48] LABS: Bacteria 0 SEEN /hpf (None Seen); Mucous, Urine 0 SEEN /hpf (<or=2+); Red Blood Cells-Urine 0 SEEN /hpf (0-5)
[2024-03-24 09:51] LABS: Color, Urine Yellow (Yellow); Glucose, Dipstick Normal (Normal); Ketone-Dipstick Negative (Negative); Leukocyte Esterase-Dipstick 100 /ul (Negative); Nitrite-Dipstick Negative (Negative); Occult Blood-Urine 10 /ul (Negative); Protein-Dipstick 15 mg/dl (Negative); Specific Gravity, Urine 1.015 (1.002-1.030); Urine Clarity Clear (Clear); Urine Urobilinogen 12 mg/dl (Normal)
[2024-03-24 09:53] LABS: Urine Bilirubin Dipstick 1 mg/dL (Negative)
[2024-03-24 09:59] LABS: Squamous Epithelial Cells - UA 0-5 SEEN /hpf (0-5); White Blood Cells 0-5 SEEN /hpf (0-5)
[2024-03-24 10:27] VITALS: BP 164/78; PULSE 84; RESP 15; TEMP 37.1; O2SAT 94
--- NOTE | 2024-03-24 10:40 | HP.PCM.HOS_ITS ---
HPI - General General Date of Admission: 03/24/24 Date of Service: 03/24/24 Chief Complaint: Worsening weakness with generalized pain HPI Narrative TA DEE, is a 63 M who presented to [facility] ED on 03/24/2024 with worsening weakness and generalized pain. Patient has history of TBI about 15 years ago with mild cognitive impairment and chronic debility. Typically uses a motorized scooter for transport but is able to ambulate with a cane or walker. Has a caregiver that comes in to help him 7 days/week for 4 hours/day and caregiver has been doing this since the TBI. Patient had a fall about 6 days ago while he was walking with his dog. Fell into a gate and struck his face on the gate. Also hurt both knees with the fall. He was apparently seen by EMS but opted to stay home. However since then he has had worsening pain specifically in his neck radiating down into both arms but has generally had pain all over. Vitals in the ED were unremarkable. Labs fairly unremarkable. CT brain was unremarkable. CT C-spine showed multilevel degenerative changes but no specific acute findings. Thoracic and lumbar x-rays showed chronic changes but no acute changes. Chest x-ray was unremarkable. Patient noted that he did not feel comfortable going home due to his weakness so hospitalist was contacted for admission. I saw the patient at bedside in the ED. Patient was laying back flat in bed and in no acute distress. He made appropriate eye contact with me and answered all questions appropriately for me he did not appear to be in any discomfort or pain when I saw him. Stated his neck causing the most discomfort and he did report radiating pain and numbness down both upper extremities. Also noted that his knees were somewhat painful with movement but not painful at rest. Denied any other acute concerns. Will be admitted for further management. 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 Renal cell carcinoma Stroke Renal mass MDD (major depressive disorder) PTSD (post-traumatic stress disorder) Hepatitis C Mild cognitive impairment Gait abnormality Porokeratosis Epilepsy Brain injury Home Medications ?Medication ?Instructions ?Recorded ?Last Taken ?Type carbamazepine 200 mg tablet 400 mg PO BIDCM seizure, hx TBI 01/08/13 03/23/24 History galantamine 4 mg tablet 4 mg PO BIDCM memory 01/08/13 03/23/24 History epinephrine 0.3 mg/0.3 mL 0.3 mg (0.3 mL) IM Q4H PRN 09/05/22 Unknown Rx injection, auto-injector anaphylaxis #2 ea buspirone 15 mg tablet 15 mg PO BID 03/24/24 03/23/24 History ferrous sulfate 325 mg (65 mg 325 mg PO DAILY 03/24/24 03/23/24 History iron) tablet fluticasone fur. 100 mcg-umeclid 1 ea inhalation DAILY 03/24/24 03/23/24 History 62.5 mcg-vilant 25 mcg inhalat.powder (Trelegy Ellipta) glecaprevir 100 mg-pibrentasvir 40 3 tab PO DAILY 03/24/24 03/23/24 History mg tablet (Mavyret) guaifenesin 600 mg tablet, 600 mg PO BID 03/24/24 03/23/24 History extended release 12 hr (Mucus Relief ER) liraglutide 0.6 mg/0.1 mL (18 mg/3 0.6 mg subcut DAILY 03/24/24 03/23/24 History mL) subcutaneous pen injector (Victoza 2-Jerrod) lisinopril 40 mg tablet 40 mg PO DAILY 03/24/24 03/23/24 History metformin 500 mg tablet,extended 500 mg PO BID 03/24/24 03/23/24 History release 24 hr metoprolol succinate 50 mg 50 mg PO DAILY 03/24/24 03/23/24 History tablet,extended release 24 hr pantoprazole 40 mg tablet,delayed 40 mg PO DAILY 03/24/24 03/23/24 History release potassium chloride 10 mEq 10 meq PO BID 03/24/24 03/23/24 History tablet,extended release Allergy/AdvReac Type Severity Reaction Status Date / Time celecoxib (From Celebrex) Allergy Unknown Verified 03/24/24 08:25 doxycycline Allergy Anaphylaxis Verified 03/24/24 08:25 NSAIDS (Non-Steroidal Allergy Unknown Verified 03/24/24 08:25 Anti-Inflamma phenytoin sodium (From Allergy Unknown Verified 03/24/24 08:25 Dilantin) phenytoin sodium extended Allergy Unknown Verified 03/24/24 08:25 (From Dilantin) pregabalin (From Lyrica) Allergy Unknown Verified 03/24/24 08:25 quetiapine fumarate (From Allergy Unknown Verified 03/24/24 08:25 Seroquel) tramadol Allergy Unknown Verified 03/24/24 08:25 diclofenac AdvReac Rash Verified 03/24/24 08:25 divalproex sodium (From AdvReac Unknown Verified 03/24/24 08:25 Depakote) gabapentin (From Neurontin) AdvReac Unknown Verified 03/24/24 08:25 paroxetine AdvReac Other Verified 03/24/24 08:25 zonisamide AdvReac Other Verified 03/24/24 08:25 Surgical History 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 Social History Smoking Status: Light Smoker (<10/day) ROS Constitutional Constitutional: Reports weakness; Denies chills, fatigue or fever(s) Eyes Eyes: Denies change in vision Cardiovascular Cardiovascular: Denies chest pain Respiratory/Chest Respiratory/Chest: Denies shortness of breath at rest Gastrointestinal Gastrointestinal: Denies abdominal pain Musculoskeletal Musculoskeletal: Reports arthralgias, back pain, joint pain and neck pain; Denies myalgias Neurologic Neurologic: Reports abnormal gait, numbness and paresthesias; Denies confusion, dizziness, focal weakness, headache(s), tingling or tremor(s) Vital Signs Vital Signs Vital Signs: 03/24/24 08:21 03/24/24 08:24 03/24/24 10:27 Temperature 97.4 F L 98.7 F Temperature Source Oral Pulse Rate 88 84 Respiratory Rate 16 15 Respiratory Effort Normal Non-Labored Respiratory Pattern Normal Blood Pressure 137/76 H 164/78 H Blood Pressure Mean 96 106 Pulse Ox 95 94 Oxygen Delivery Method Room Air Weight Weight: 106.1 kg Body Mass Index (BMI) 34.5 Physical Exam Const alert, oriented x3 and no apparent distress Constitutional Narrative: Middle-age male, class I obesity, mildly fatigued appearing, otherwise laying back comfortably in bed, conversing normally, in no acute distress. General Appearance: cooperative and comfortable HEENT normocephalic, head/scalp atraumatic, hearing grossly normal bilaterally, nasal mucous membranes and turbinates normal and moist oral mucous membranes Eyes PERRL, EOMs intact bilaterally and conjunctivae normal Neck full ROM Chest inspection of chest normal Resp normal respiratory effort, normal air movement, no use of accessory muscles and clear to auscultation bilaterally Cardio regular rate, regular rhythm, no murmurs and peripheral pulses 2+ throughout GI normal to inspection, nondistended, normoactive bowel sounds, soft to palpation, non-tender and non-distended Back/Spine normal to inspection and no thoracic nor lumbar tenderness Cervical Spine: pain with cervical ROM and cervical spine tenderness Cervical Spine Tenderness Details: diffuse (Mild) Extremity normal to inspection and no pedal edema Skin no rashes or lesions noted Neuro moves all extremities Neuro Narrative: Moves extremities but reports pain with minimal movement of upper and lower extremities so effort was limited. Speech: speech normal Psych mental status grossly normal Results Lab / Micro Data 03/24/24 08:48 03/24/24 08:48 Labs: Laboratory Results - last 24 hr 03/24/24 08:48: WBC 8.2, RBC 2.99 L, Hgb 10.2 L, Hct 33.7 L, MCV 112.7 H, MCH 34.1 H, MCHC 30.3 L, RDW Std Deviation 61.1 H, RDW Coeff of Jass 14.7 H, Plt Count , MPV 11.9, Immature Gran % (Auto) 0.700, Neut % (Auto) 71.3 H, Lymph % (Auto) 14.3 L, [place] % (Auto) 10.7 H, Eos % (Auto) 2.3, Baso % (Auto) 0.7, Absolute Neuts (auto) 5.8, Absolute Lymphs (auto) 1.17, Nucleated RBC % 0, S odium 135 L, Potassium 4.0, Chloride 106, Carbon Dioxide 23.0, Anion Gap 6, BUN 11, Creatinine 0.78, Estim Creat Clear Calc 119.37, Est GFR (MDRD) Af Amer 130, Est GFR (MDRD) Non-Af 107, BUN/Creatinine Ratio 14.1, Glucose 111 H, Calcium 8.8, Total Bilirubin 1.10 H, AST 23, ALT 12 L, Alkaline Phosphatase 104, Total Creatine Kinase 85, Troponin I High Sens 9, Total Protein 8.0, Albumin 2.6 L, G lobulin 5.4 H, Albumin/Globulin Ratio 0.5 L 03/24/24 09:44: Urine Color Yellow, Urine Clarity Clear, Urine pH 6.0, Ur Specific [place] 1.015, Urine Protein 15 H, Urine Glucose (UA) Normal, Urine Ketones Negative, Urine Occult Blood 10 H, Urine Nitrite Negative, Urine Bilirubin 1 H, Urine Urobilinogen 12 H, Ur Leukocyte Esterase 100 H, Urine RBC 0 SEEN, Urine WBC 0-5 SEEN, Ur Squamous Epith Cells 0-5 SEEN, Urine Bacteria 0 SEEN, Urine Mucus 0 SEEN Imaging Radiology Impression Brain CT 03/24/24 08:34 IMPRESSION: Chronic involutional changes of the brain. Stable S malacia in the left temporal lobe secondary to prior left temporal craniotomy. Electronically Signed: Jelani Weller MD at 9:16 EST , Cervical Spine CT 03/24/24 08:34 IMPRESSION: Multilevel degenerative changes, as described above. Electronically Signed: Jelani Weller MD at 9:18 EST , Lumbar Spine X-Ray 03/24/24 08:38 IMPRESSION: Normal x-ray examination of the lumbar spine. Calcified gallstone. Atherosclerotic calcification of the abdominal aorta. Electronically Signed: Jelani Weller MD at 9:38 EST , Thoracic Spine X-Ray 03/24/24 08:38 IMPRESSION: Increased kyphosis. Disc space narrowing and spondylosis in the lower thoracic spine. Electronically Signed: Jelani Weller MD at 9:38 EST , Chest X-Ray 03/24/24 09:05 IMPRESSION: No acute abnormality is seen. Electronically Signed: Jelani Weller MD at 9:43 EST , Assessment & Plan Assessment/Plan (1) Weakness: (2) Neck pain: (3) Fall: (4) Adult failure to thrive: PLAN: Plan Patient is a 63-year-old male who presented [facility] ED on 03/24/2024 with worsening weakness and generalized pain. 1. Acute on chronic debility after recent fall; generalized pain with reported neck pain with cervical radiculopathy; history of TBI with mild cognitive impairment ? Admit under observation status to [facility]. PT/OT/case management consulted. History of TBI with chronic debility. Utilizes cane or walker with ambulation and had mechanical fall at home recently. CT brain, CT C-spine, thoracic x-ray and lumbar x-rays all showed chronic changes but no acute findings. Patient reported symptoms concerning for bilateral cervical radiculopathy so cervical MRI was done as well, read pending. Follow-up read when available and have patient work with therapy tomorrow. Patient notably has a private caregiver 7 days/week for 4 hours daily and is never gone to SNF on discharge, and noted he would be more apt to go home with home health care if possible. Given reported substance abuse history, will treat pain with scheduled Tylenol and oxycodone 5 mg every 6 hours as needed for now. Continue home galantamine. 2. Mild iron deficiency anemia ? Hemoglobin 10.2 on admit, last labs were in 2021 and hemoglobin was around 10- 11. MCV 112. Iron studies showed showed low iron and iron saturation and ferritin low normal at 51. Continue home iron supplement. Follow-up a.m. CBC. 3. History of substance abuse ? On review of prior urine drug screens from several years ago, patient has had positive results for opiates, benzodiazepines, cocaine and cannabinoids. Has history of alcohol abuse and tobacco abuse as noted below as well. Denies any current drug use. Chronic medical conditions: ? Class I obesity: BMI 34 on admit. Complicates hospital course, care and prognosis. ? History of alcohol abuse: Denies any current alcohol use. ? History of tobacco abuse: Denies any current tobacco use. ? COPD: Stable on room air on admit, not in acute exacerbation. Continue home inhalers. ? History of seizures: Continue home carbamazepine. ? Hypertension: Continue home Toprol and lisinopril. ? GERD: Continue home PPI. ? Type 2 diabetes mellitus: On home metformin 500 mg twice daily and liraglutide injections daily. Will treat with sliding scale insulin with meals while inpatient. DVT prophylaxis: Lovenox CODE STATUS: Full code, verified Expected disposition: Home with home health care versus SNF, 1 to 2 days Total clinical time spent by myself addressing the patient's medical issues, reviewing all the data, and collaborating with patient's care team: 75 minutes. Charges/Coding Visit Charges Inpatient E&M: 28588 Init Hosp L3
[2024-03-24 10:49] LABS: Differential Comment SCANNED; Platelet Estimate ADEQUATE (ADEQ)
[2024-03-24 10:50] LABS: Red Cell Morphology NORM C+C NORMAL (NORM C&C)
[2024-03-24 11:35] LABS: Vitamin B12 336 pg/mL (211-911)
[2024-03-24 11:45] LABS: Ferritin 51 ng/mL (26-388); Iron 27 ug/dL (65-175); Iron Binding Capacity,Total 337 ug/dL (250-450)
[2024-03-24 12:00] VITALS: BP 150/72; PULSE 78; RESP 16; O2SAT 96
--- NOTE | 2024-03-24 12:11 | MRI_ITS ---
STUDY: MRI CERVICAL SPINE WITHOUT CONTRAST REASON FOR EXAM: Male, 63 years old. worsened b/l cerv radiculopathy after fall, PAIN INTO R SHOULDER TECHNIQUE: Standardized fat and water weighted pulse sequences were obtained in the sagittal and axial planes. COMPARISON: CT of the cervical spine March 24, 2024 FINDINGS: Normal foramen magnum and brainstem-cervical cord junction. Normal craniovertebral junction. Normal anterior atlantoaxial articulation. Normal odontoid process. Normal cervical lordosis. Normal vertebral bodies and posterior osseous elements. Small interosseous hemangioma in the C5 vertebral C2-3: Normal endplates. Normal disc height, signal and tiny central disc protrusion. Normal central canal and intervertebral neural foramina. C3-4: Narrowed disc space and minor endplate spurring. Normal central canal and mild right neural foraminal encroachment secondary to bony hypertrophy C4-5: Narrowed disc space and minor endplate spurring. Normal central canal minor bilateral neural foraminal encroachment C5-6: Normal endplates. Narrowed disc space and normal disc morphology.. Normal central canal and intervertebral neural foramina. C6-7: Normal endplates. Normal disc height, signal and morphology. Normal central canal and intervertebral neural foramina. C7-T1: Normal endplates. Normal disc height, signal and morphology. Normal central canal and intervertebral neural foramina. Normal cervical cord. Normal visualized soft tissue structures. MRI/Spine Cervical (Routine) IMPRESSION: No evidence for acute fracture or other significant bony pathology.. Moderate spondylosis Tiny central disc protrusion at C2-3 without significant spinal stenosis Minor neural foraminal encroachment on the right at C3-4 and bilaterally at C4-5 secondary to bony hypertrophy Electronically Signed: Russ Rose MD at 17:27 EST ,
[2024-03-24 14:13] VITALS: BMI 34.5
[2024-03-24 14:49] VITALS: BP 164/80; PULSE 85; RESP 20; TEMP 36.6; O2SAT 94
[2024-03-24] MEDS: Acetaminophen 500 MG Tablet 1000 MG PO ×2 (14:53→21:03)
[2024-03-24] MEDS: oxyCODONE 5 MG Tablet PO ×2 (14:53→21:03)
[2024-03-24] MEDS: Galantamine Hydrobromide 4 MG Tablet PO (17:18)
[2024-03-24] MEDS: carBAMazepine 200 MG Tablet 400 MG PO (17:18)
[2024-03-24] MEDS: Ipratropium/Albuterol Sulfate 3 ML AMPUL.NEB INHALATION (19:45)
[2024-03-24 19:46] VITALS: PULSE 119; RESP 20
[2024-03-24] MEDS: Budesonide Respules 0.5 MG/2 ML AMPUL.NEB. INHALATION (19:46)
[2024-03-24 20:13] VITALS: BP 142/84; PULSE 78; RESP 16; TEMP 36.7; O2SAT 98
[2024-03-24] MEDS: guaiFENesin 600 MG Tablet PO (21:03)
[2024-03-24] MEDS: busPIRone 15 MG TABLET PO (21:03)
[2024-03-24 21:41] LABS: Bedside Glucose 145 mg/dL (74-106)
[2024-03-25] VITALS (12 sets, daily range): BP systolic 131–153; BP diastolic 77–86; PULSE 92–136; RESP 16–20; TEMP 36.6–37.2; O2SAT 88–96
[2024-03-25] MEDS: Acetaminophen 500 MG Tablet 1000 MG PO ×3 (05:28→21:33)
[2024-03-25] MEDS: oxyCODONE 5 MG Tablet PO ×2 (05:28→11:52)
[2024-03-25 05:57] LABS: Hematocrit 30.9 % (40-54); Hemoglobin 9.5 g/dL (13.0-16.5); Mean Corp Hgb Conc 30.7 g/dL (32-36); Mean Corpuscular Hgb 32.6 pg (27.0-32.0); Mean Corpuscular Volume 106.2 fL (80-94); Mean Platelet Vol. 9.9 fl (6.2-12.0); Platelet Count 219 K/mm3 (150-450); RBC Distribution Width CV 14.2 % (11.6-14.6); RBC Distribution Width SD 55.7 fl (35.1-43.9); Red Blood Count 2.91 M/mm3 (4.6-6.2); White Blood Count 6.8 K/mm3 (4.4-11.0)
[2024-03-25 06:34] LABS: Bedside Glucose 110 mg/dL (74-106)
[2024-03-25 07:00] LABS: Anion Gap 3 (5-15); BUN 11 mg/dL (7-18); Calcium,Total 9.1 mg/dL (8.5-10.1); Chloride 106 mmol/L (98-107); Creatinine, Serum 0.73 mg/dL (0.70-1.30); EST Glomerular Filtration Rate 115 mL/min (>60); Est Glom Filt Rate - Afr Amer 139 mL/min (>60); Estimated Creatinine Clearance 127.55 ml/min; Glucose 109 mg/dL (74-106); Potassium 3.8 mmol/L (3.5-5.1); Sodium Level 137 mmol/L (136-145)
[2024-03-25] MEDS: Metoprolol(XL)Succ 50 MG Tablet PO (08:08)
[2024-03-25] MEDS: Lisinopril 40 MG Tablet PO (08:10)
[2024-03-25] MEDS: Ferrous Sulfate 325 MG Tablet PO (08:10)
[2024-03-25] MEDS: carBAMazepine 200 MG Tablet 400 MG PO ×2 (08:11→16:45)
[2024-03-25] MEDS: Iron Sucrose Complex 200 MG in 0.9% Normal Saline (100mL Bag) 100 ML 220 MG IV (08:37)
--- NOTE | 2024-03-25 09:07 | EKG12_ITS ---
Test Reason : TACHYCARDIA Blood Pressure : */* mmHG Vent. Rate : 137 BPM Atrial Rate : 137 BPM P-R Int : 152 ms QRS Dur : 76 ms QT Int : 298 ms P-R-T Axes : * -26 86 degrees QTcB Int : 449 ms Sinus tachycardia Nonspecific ST abnormality Abnormal ECG When compared with ECG of 24-Mar-2024 08:45, MANUAL COMPARISON REQUIRED DATA IS UNCONFIRMED Confirmed by CRISTAL CORDERO, CHAZ ([id number]), sports editor MARII JAY ([id number]) on 03/28/2024 6:41:57 AM Referred By: SARAH Confirmed By: CHAZ BEE MD
[2024-03-25] MEDS: Galantamine Hydrobromide 4 MG Tablet PO ×2 (09:17→16:45)
[2024-03-25 11:28] LABS: Bedside Glucose 143 mg/dL (74-106)
[2024-03-25] MEDS: Pantoprazole Sodium 40 MG Tablet PO (11:54)
[2024-03-25] MEDS: Enoxaparin 40 MG/0.4 ML Syringe SC (11:54)
[2024-03-25] MEDS: busPIRone 15 MG TABLET PO ×2 (11:55→21:31)
[2024-03-25] MEDS: guaiFENesin 600 MG Tablet PO ×2 (11:55→21:31)
[2024-03-25] MEDS: 0.9% Saline Lock 10 ML Syringe IV ×3 (11:57→16:50)
--- NOTE | 2024-03-25 12:26 | CASEMGMT ---
NATALIE RIVAS into pt room, pt lying in bed in no distress. Pt states he has a cg [facility] for the last 15 years. Discussed how pt did with therapy today, pt states he has been to [facility] in the past and would be agreeable to going back. He states he prefers this over [facility] if [facility] will transport him. He asks for NATALIE RIVAS to call [facility] to discuss. Pt states he has an electric scooter, rollator and cane at home. He has his cg 7 days/wk. Pt denies any futher homegoing needs. Handoff given to MS3 NATALIE RIVAS.
--- NOTE | 2024-03-25 13:09 | DS.PCM_ITS ---
Providers Date of Admission: 03/24/24 Primary Care Physician: Dr. Helder Camejo MD Reason For Visit: WEAKNESS Diagnosis Discharge Diagnosis (1) Weakness: Status: Acute Code(s): R53.1 - Weakness (2) Neck pain: Status: Acute Code(s): M54.2 - Cervicalgia (3) Fall: Status: Acute Code(s): W19.XXXA - Unspecified fall, initial encounter (4) Adult failure to thrive: Status: Acute Code(s): R62.7 - Adult failure to thrive Plan Patient is a 63-year-old male who presented [facility] ED on 03/24/2024 with worsening weakness and generalized pain. 1. Acute on chronic debility after recent fall; generalized pain with reported neck pain with cervical radiculopathy; history of TBI with mild cognitive impairment ? Admit under observation status to [facility]. PT/OT/case management consulted. History of TBI with chronic debility. Utilizes cane or walker with ambulation and had mechanical fall at home recently. CT brain, CT C-spine, thoracic x-ray and lumbar x-rays all showed chronic changes but no acute findings. Patient reported symptoms concerning for bilateral cervical radiculopathy so cervical MRI was done as well, read pending. Follow-up read when available and have patient work with therapy tomorrow. Patient notably has a private caregiver 7 days/week for 4 hours daily and is never gone to SNF on discharge, and noted he would be more apt to go home with home health care if possible. Given reported substance abuse history, will treat pain with scheduled Tylenol and oxycodone 5 mg every 6 hours as needed for now. Continue home galantamine. 2. Mild iron deficiency anemia ? Hemoglobin 10.2 on admit, last labs were in 2021 and hemoglobin was around 10- 11. MCV 112. Iron studies showed showed low iron and iron saturation and ferritin low normal at 51. Continue home iron supplement. Follow-up a.m. CBC. 3. History of substance abuse ? On review of prior urine drug screens from several years ago, patient has had positive results for opiates, benzodiazepines, cocaine and cannabinoids. Has history of alcohol abuse and tobacco abuse as noted below as well. Denies any current drug use. Chronic medical conditions: ? Class I obesity: BMI 34 on admit. Complicates hospital course, care and prognosis. ? History of alcohol abuse: Denies any current alcohol use. ? History of tobacco abuse: Denies any current tobacco use. ? COPD: Stable on room air on admit, not in acute exacerbation. Continue home inhalers. ? History of seizures: Continue home carbamazepine. ? Hypertension: Continue home Toprol and lisinopril. ? GERD: Continue home PPI. ? Type 2 diabetes mellitus: On home metformin 500 mg twice daily and liraglutide injections daily. Will treat with sliding scale insulin with meals while inpatient. DVT prophylaxis: Lovenox CODE STATUS: Full code, verified Expected disposition: Home with home health care versus SNF, 1 to 2 days Total clinical time spent by myself addressing the patient's medical issues, reviewing all the data, and collaborating with patient's care team: 75 minutes. Medications at Discharge Home Medications carbamazepine 200 mg tablet 400 mg PO BIDCM seizure, hx TBI 01/08/13 galantamine 4 mg tablet 4 mg PO BIDCM memory 01/08/13 epinephrine 0.3 mg/0.3 mL injection, auto-injector 0.3 mg (0.3 mL) IM Q4H PRN anaphylaxis #2 ea 09/05/22 buspirone 15 mg tablet 15 mg PO BID 03/24/24 ferrous sulfate 325 mg (65 mg iron) tablet 325 mg PO DAILY 03/24/24 fluticasone fur. 100 mcg-umeclid 62.5 mcg-vilant 25 mcg inhalat.powder (Trelegy Ellipta) 1 ea inhalation DAILY 03/24/24 glecaprevir 100 mg-pibrentasvir 40 mg tablet (Mavyret) 3 tab PO DAILY 03/24/24 guaifenesin 600 mg tablet, extended release 12 hr (Mucus Relief ER) 600 mg PO BID 03/24/24 liraglutide 0.6 mg/0.1 mL (18 mg/3 mL) subcutaneous pen injector (Victoza 2-Jerrod) 0.6 mg subcut DAILY 03/24/24 lisinopril 40 mg tablet 40 mg PO DAILY 03/24/24 metformin 500 mg tablet,extended release 24 hr 500 mg PO BID 03/24/24 metoprolol succinate 50 mg tablet,extended release 24 hr 50 mg PO DAILY 03/24/24 pantoprazole 40 mg tablet,delayed release 40 mg PO DAILY 03/24/24 potassium chloride 10 mEq tablet,extended release 10 meq PO BID 03/24/24 Weight / BMI Weight Weight: 106.1 kg Body Mass Index (BMI) 34.5 ABG / Lab / Microbiology Data 03/25/24 05:33 03/25/24 05:33 Laboratory: Laboratory Results - last 24 hr 03/24/24 08:48: Hemoglobin A1c Cancelled 03/24/24 21:06: POC Glucose 145 H 03/25/24 05:33: WBC 6.8, RBC 2.91 L, Hgb 9.5 L, Hct 30.9 L, MCV 106.2 H D, MCH 32.6 H, MCHC 30.7 L, RDW Std Deviation 55.7 H, RDW Coeff of Jass 14.2, Plt Count 219, MPV 9.9, Sodium 137, Potassium 3.8, Chloride 106, Carbon Dioxide 28.0, A nion Gap 3 L, BUN 11, Creatinine 0.73, Estim Creat Clear Calc 127.55, Est GFR (MDRD) Af Amer 139, Est GFR (MDRD) Non-Af 115, BUN/Creatinine Ratio 15.0, G lucose 109 H, Hemoglobin A1c 5.0, Calcium 9.1 03/25/24 06:14: POC Glucose 110 H 03/25/24 11:07: POC Glucose 143 H Radiography Diagnostic Testing: Radiology Impression Cervical Spine MRI 03/24/24 12:11 IMPRESSION: No evidence for acute fracture or other significant bony pathology.. Moderate spondylosis Tiny central disc protrusion at C2-3 without significant spinal stenosis Minor neural foraminal encroachment on the right at C3-4 and bilaterally at C4-5 secondary to bony hypertrophy Electronically Signed: Russ Rose MD at 17:27 EST Reading Location ID and State: [facility] / [place] Tel , Service support , Meaningful Use Info Ischemic Stroke Statin Dosing Therapy Reference: STATIN DOSE THERAPY REFERENCE: * Patients > 75 years receive moderate or high dose statin therapy. * Patients 75 years or YOUNGER should receive HIGH intensity statin dose unless contraindicated. You will be required to document reason for non-treatment if statin daily dose does not meet guidelines. HIGH DOSE STATIN THERAPY DAILY Atorvastatin > than or = to 40 mg Rosuvastatin > than or = to 20 mg Amlodipine + Atorvastatin > than or = to 2.5/40 mg Ezetimibe + Simvastatin 10/80 mg Simvastatin 80mg Discharge Plan Admission Admit Date/Time: 03/24/24 10:40 Attending Provider: Earl Nicholson Primary Care Provider: Helder Camejo Discharge Orders/Prescriptions Prescriptions: No Action galantamine 4 MG tablet 4 mg PO BIDCM Patient Comments: alzheimer's carbamazepine 200 MG tablet 400 mg PO BIDCM Patient Comments: Seizure epinephrine 0.3 mg/0.3 mL auto-injector 0.3 mg IM Q4H PRN (Reason: anaphylaxis) Qty: 2 0RF metoprolol succinate 50 mg tablet extended release 24 hr 50 mg PO DAILY potassium chloride 10 mEq tablet extended release 10 meq PO BID pantoprazole 40 mg tablet,delayed release (DR/EC) 40 mg PO DAILY ferrous sulfate 325 mg (65 mg iron) tablet 325 mg PO DAILY lisinopril 40 mg tablet 40 mg PO DAILY metformin 500 mg tablet extended release 24 hr 500 mg PO BID buspirone 15 mg tablet 15 mg PO BID liraglutide [Victoza 2-Jerrod] 0.6 mg/0.1 mL (18 mg/3 mL) pen injector 0.6 mg subcut DAILY guaifenesin [Mucus Relief ER] 600 mg tablet extended release 12hr 600 mg PO BID Mavyret 100-40 mg tablet 3 tab PO DAILY Trelegy Ellipta 100-62.5-25 mcg blister with device 1 ea inhalation DAILY Referrals / Follow Up: Helder Camejo MD [Primary Care Provider] -
--- NOTE | 2024-03-25 13:09 | PCM.DC.SUM ---
Providers Date of Admission: 03/24/24 Date of Discharge: 03/25/24 Primary Care Physician: Dr. Helder Camejo MD Reason For Visit: WEAKNESS Diagnosis Discharge Diagnosis (1) Weakness: Status: Acute Code(s): R53.1 - Weakness (2) Neck pain: Status: Acute Code(s): M54.2 - Cervicalgia (3) Fall: Status: Acute Code(s): W19.XXXA - Unspecified fall, initial encounter (4) Adult failure to thrive: Status: Acute Code(s): R62.7 - Adult failure to thrive Medications at Discharge Home Medications carbamazepine 200 mg tablet 400 mg PO BIDCM seizure, hx TBI 01/08/13 galantamine 4 mg tablet 4 mg PO BIDCM memory 01/08/13 epinephrine 0.3 mg/0.3 mL injection, auto-injector 0.3 mg (0.3 mL) IM Q4H PRN anaphylaxis #2 ea 09/05/22 buspirone 15 mg tablet 15 mg PO BID 03/24/24 ferrous sulfate 325 mg (65 mg iron) tablet 325 mg PO DAILY 03/24/24 fluticasone fur. 100 mcg-umeclid 62.5 mcg-vilant 25 mcg inhalat.powder (Trelegy Ellipta) 1 ea inhalation DAILY 03/24/24 glecaprevir 100 mg-pibrentasvir 40 mg tablet (Mavyret) 3 tab PO DAILY 03/24/24 guaifenesin 600 mg tablet, extended release 12 hr (Mucus Relief ER) 600 mg PO BID 03/24/24 liraglutide 0.6 mg/0.1 mL (18 mg/3 mL) subcutaneous pen injector (Victoza 2-Jerrod) 0.6 mg subcut DAILY 03/24/24 lisinopril 40 mg tablet 40 mg PO DAILY 03/24/24 metformin 500 mg tablet,extended release 24 hr 500 mg PO BID 03/24/24 metoprolol succinate 50 mg tablet,extended release 24 hr 50 mg PO DAILY 03/24/24 pantoprazole 40 mg tablet,delayed release 40 mg PO DAILY 03/24/24 potassium chloride 10 mEq tablet,extended release 10 meq PO BID 03/24/24 acetaminophen 500 mg tablet 1,000 mg (2 x 500 mg) PO Q8 7 days #42 tabs 03/25/24 oxycodone 5 mg tablet 5 mg PO Q6H PRN PRN Pain Score 6-10 3 days #12 tabs 03/25/24 Hospital Course Operations None Procedures EKG and - (MRI cervical spine, chest x-ray, T-spine x-ray, L-spine x-ray, CT cervical spine, CT brain) Summary of Care Provided Minutes Spent on Discharge: 35 Hospital Course: Patient is a 63-year-old male who presented [facility] ED on 03/24/2024 with worsening weakness and generalized pain. Hospital course as noted below. Patient discharged home with no therapy needs in stable condition on 03/25. 1. Acute on chronic debility after recent fall; generalized pain with reported neck pain with cervical radiculopathy; history of TBI with mild cognitive impairment ? PT/OT/case management followed. History of TBI with chronic debility. Utilizes cane or walker with ambulation and had mechanical fall at home recently. CT brain, CT C-spine, thoracic x-ray and lumbar x-rays all showed chronic changes but no acute findings. Patient reported symptoms concerning for bilateral cervical radiculopathy so cervical MRI was done as well but showed no concerning findings. Patient did have borderline therapy scores on day of discharge but notably has a private caregiver 7 days/week for 4 hours daily and decided he would like to go home with outpatient physical therapy if needed. Given reported substance abuse history, treated with scheduled Tylenol and oxycodone 5 mg or 6 hours as needed while inpatient. Will continue scheduled Tylenol 1000 mg every 8 hours for 7 days on discharge and prescribed 3-day course of oxycodone on discharge. Continue home galantamine. 2. Mild iron deficiency anemia ? Hemoglobin 10.2 on admit, last labs were in 2021 and hemoglobin was around 10-11. MCV 112. Iron studies showed showed low iron and iron saturation and ferritin low normal at 51. Repeat hemoglobin 9.5 on hospital day 2. Given 1 dose of IV iron 200 mg on day of discharge. Continue home iron supplement on discharge. 3. History of substance abuse ? On review of prior urine drug screens from several years ago, patient has had positive results for opiates, benzodiazepines, cocaine and cannabinoids. Has history of alcohol abuse and tobacco abuse as noted below as well. Denied any current drug use. Chronic medical conditions: ? Class I obesity: BMI 34 on admit. Complicated hospital course, care and prognosis. ? History of alcohol abuse: Denied any current alcohol use. ? History of tobacco abuse: Denied any current tobacco use. ? COPD: Stable on room air on admit, not in acute exacerbation. Continue home inhalers. ? History of seizures: Continue home carbamazepine. ? Hypertension: Continue home Toprol and lisinopril. ? GERD: Continue home PPI. ? Type 2 diabetes mellitus: Treated with sliding scale insulin with meals while inpatient. Okay to resume home metformin 500 mg twice daily and liraglutide injections daily on discharge. Total clinical time spent by myself addressing the patient's medical issues, reviewing all the data, and collaborating with patient's care team: 35 minutes. Physical Exam Const alert, oriented x3 and no apparent distress Constitutional Narrative: Middle-age male, class I obesity, appears much improved from an energy standpoint compared to admission, sitting up fairly comfortably in bed, conversing normally, in no acute distress. General Appearance: cooperative and comfortable HEENT normocephalic, head/scalp atraumatic, hearing grossly normal bilaterally, nasal mucous membranes and turbinates normal and moist oral mucous membranes Eyes PERRL, EOMs intact bilaterally and conjunctivae normal Neck full ROM Chest inspection of chest normal Resp normal respiratory effort, normal air movement, no use of accessory muscles and clear to auscultation bilaterally Cardio regular rate, regular rhythm, no murmurs and peripheral pulses 2+ throughout GI normal to inspection, nondistended, normoactive bowel sounds, soft to palpation, non-tender and non-distended Back/Spine normal to inspection and no thoracic nor lumbar tenderness Back/Spine Narrative: Bilateral shoulder and neck pain noted with active motion but range of motion not inhibited on my exam. Cervical Spine: pain with cervical ROM and cervical spine tenderness Cervical Spine Tenderness Details: diffuse (Mild) Extremity normal to inspection and no pedal edema Skin no rashes or lesions noted Neuro moves all extremities Speech: speech normal Psych mental status grossly normal Weight / BMI Weight Weight: 106.1 kg Body Mass Index (BMI) 34.5 ABG / Lab / Microbiology Data 03/25/24 05:33 03/25/24 05:33 Laboratory: Laboratory Results - last 24 hr 03/24/24 08:48: Hemoglobin A1c Cancelled 03/24/24 21:06: POC Glucose 145 H 12/20/24 05:33: WBC 6.8, RBC 2.91 L, Hgb 9.5 L, Hct 30.9 L, MCV 106.2 H D, MCH 32.6 H, MCHC 30.7 L, RDW Std Deviation 55.7 H, RDW Coeff of Jass 14.2, Plt Count 219, MPV 9.9, Sodium 137, Potassium 3.8, Chloride 106, Carbon Dioxide 28.0, Anion Gap 3 L, BUN 11, Creatinine 0.73, Estim Creat Clear Calc 127.55, Est GFR (MDRD) Af Amer 139, Est GFR (MDRD) Non-Af 115, BUN/Creatinine Ratio 15.0, Glucose 109 H, Hemoglobin A1c 5.0, Calcium 9.1 03/25/24 06:14: POC Glucose 110 H 03/25/24 11:07: POC Glucose 143 H Radiography Diagnostic Testing: Radiology Impression Cervical Spine MRI 03/24/24 12:11 IMPRESSION: No evidence for acute fracture or other significant bony pathology.. Moderate spondylosis Tiny central disc protrusion at C2-3 without significant spinal stenosis Minor neural foraminal encroachment on the right at C3-4 and bilaterally at C4-5 secondary to bony hypertrophy Electronically Signed: Russ Rose MD at 17:27 EST Reading Location ID and State: [facility] / [place] Tel , Service support , D/C Instructions DC O2, CPAP, BIPAP Needs Home O2 Discharge instructions: No Meaningful Use Info Meaningful Use Meaningful Use Diagnoses (Choose all that apply): None applicable Ischemic Stroke Statin Dosing Therapy Reference: STATIN DOSE THERAPY REFERENCE: * Patients > 75 years receive moderate or high dose statin therapy. * Patients 75 years or YOUNGER should receive HIGH intensity statin dose unless contraindicated. You will be required to document reason for non-treatment if statin daily dose does not meet guidelines. HIGH DOSE STATIN THERAPY DAILY Atorvastatin > than or = to 40 mg Rosuvastatin > than or = to 20 mg Amlodipine + Atorvastatin > than or = to 2.5/40 mg Ezetimibe + Simvastatin 10/80 mg Simvastatin 80mg Discharge Plan Admission Admit Date/Time: 03/24/24 10:40 Primary Reason for Your Visit: Worsening weakness with generalized pain Attending Provider: Earl Nicholson Primary Care Provider: Helder Camejo Instructions Additional Instructions / Restrictions: ? Please take scheduled Tylenol every 8 hours for the next 7 days. ? Take oxycodone 5 mg up to every 6 hours as needed for the next 3 days. ? Follow-up with your primary care doctor as needed. Discharge Orders/Prescriptions Prescriptions: New acetaminophen 500 mg Tablet 1,000 mg PO Q8 7 Days Qty: 42 0RF oxycodone 5 mg Tablet 5 mg PO Q6H PRN PRN (Reason: Pain Score 6-10) 3 Days Qty: 12 0RF Continued galantamine 4 MG tablet 4 mg PO BIDCM Patient Comments: alzheimer's carbamazepine 200 MG tablet 400 mg PO BIDCM Patient Comments: Seizure epinephrine 0.3 mg/0.3 mL auto-injector 0.3 mg IM Q4H PRN (Reason: anaphylaxis) Qty: 2 0RF metoprolol succinate 50 mg tablet extended release 24 hr 50 mg PO DAILY potassium chloride 10 mEq tablet extended release 10 meq PO BID pantoprazole 40 mg tablet,delayed release (DR/EC) 40 mg PO DAILY ferrous sulfate 325 mg (65 mg iron) tablet 325 mg PO DAILY lisinopril 40 mg tablet 40 mg PO DAILY metformin 500 mg tablet extended release 24 hr 500 mg PO BID buspirone 15 mg tablet 15 mg PO BID liraglutide [Victoza 2-Jerrod] 0.6 mg/0.1 mL (18 mg/3 mL) pen injector 0.6 mg subcut DAILY guaifenesin [Mucus Relief ER] 600 mg tablet extended release 12hr 600 mg PO BID Mavyret 100-40 mg tablet 3 tab PO DAILY Trelegy Ellipta 100-62.5-25 mcg blister with device 1 ea inhalation DAILY Referrals / Follow Up: Helder Camejo MD [Primary Care Provider] - Disposition Disposition (needs filled in before D/C Order can be placed): Home, Self Care Charges/Coding Visit Charges Inpatient E&M: 30117 Disch Hosp >30min
--- NOTE | 2024-03-25 13:10 | CASEMGMT ---
NATALIE RIVAS notified Pt would like CM to discuss OP vs HHC with home health Aide, Flory. NATALIE RIVAS called and left message with Flory to call back.
--- NOTE | 2024-03-25 15:08 | CASEMGMT ---
No return call from Flory, discussed OP PT vs HHC with patient. Pt would like to go to for OP PT, provided script to patient to schedule appointments with aide when she is able to transport him. Pt denies questions or concerns at this time.
[2024-03-25] MEDS: LORazepam 2 MG/ML Syringe 1 MG IV (15:18)
[2024-03-25] MEDS: 0.9% Normal Saline (1000mL) 1,000 ML 999 ML IV (16:50)
[2024-03-25 17:17] LABS: Bedside Glucose 114 mg/dL (74-106)
[2024-03-25 22:21] LABS: Bedside Glucose 107 mg/dL (74-106)
[2024-03-25] MEDS: Ipratropium 0.5 MG/2.5 ML SOLUTION INHALATION (22:26)
[2024-03-26] VITALS (7 sets, daily range): BP systolic 140–157; BP diastolic 78–88; PULSE 107–130; RESP 16–20; TEMP 36.6–37.4; O2SAT 92–95
[2024-03-26] MEDS: Acetaminophen 500 MG Tablet 1000 MG PO ×2 (06:17→14:59)
[2024-03-26 07:12] LABS: Bedside Glucose 126 mg/dL (74-106)
[2024-03-26 07:12] LABS: Bedside Glucose 89 mg/dL (74-106)
[2024-03-26] MEDS: Budesonide Respules 0.5 MG/2 ML AMPUL.NEB. INHALATION (08:00)
[2024-03-26] MEDS: Ipratropium 0.5 MG/2.5 ML SOLUTION INHALATION ×2 (08:00→13:07)
[2024-03-26] MEDS: guaiFENesin 600 MG Tablet PO (08:52)
[2024-03-26] MEDS: Galantamine Hydrobromide 4 MG Tablet PO ×2 (08:52→17:01)
[2024-03-26] MEDS: Ferrous Sulfate 325 MG Tablet PO (08:52)
[2024-03-26] MEDS: Enoxaparin 40 MG/0.4 ML Syringe SC (08:53)
[2024-03-26] MEDS: carBAMazepine 200 MG Tablet 400 MG PO ×2 (08:53→17:01)
[2024-03-26] MEDS: busPIRone 15 MG TABLET PO (08:54)
[2024-03-26] MEDS: Pantoprazole Sodium 40 MG Tablet PO (08:55)
[2024-03-26] MEDS: Metoprolol(XL)Succ 50 MG Tablet PO (08:55)
[2024-03-26] MEDS: Lisinopril 40 MG Tablet PO (08:56)
[2024-03-26] MEDS: oxyCODONE 5 MG Tablet PO ×2 (09:00→14:59)
--- NOTE | 2024-03-26 11:09 | PCM.HOSP.N ---
Hospitalist Note Discharge order for the patient was placed on the afternoon of 03/25. Patient had mild persistent sinus tachycardia and there was difficulty with arranging transportation for him so the decision was made to keep him overnight for further monitoring. Patient has improved this morning and is now okay for discharge home.
[2024-03-26 11:22] LABS: Bedside Glucose 124 mg/dL (74-106)
--- NOTE | 2024-03-26 13:04 | CASEMGMT ---
NATALIE RIVAS made aware that pt needs transportation home. TC to pt cg Flory, left msg to return call. Therapy worked with pt and pt ambulated well and therapist felt pt could walk from w/c van to home. NATALIE RIVAS into pt room, pt is aware that Flory could not be reached. He states he has tried as well. Pt states he is fine with a w/c van taking him home and he can get inside the home. Pt states he feels safe to dc. Pt has outpt therapy rx. Pt states he has oxygen at home but doesn't wear only when needed. Pt does not have a portable tank here. Pt denies need for any other homegoing services. Spoke with pt nurse, pt does not need oxygen to go home. [employer] to set up transportation.
[2024-03-26 18:09] LABS: Bedside Glucose 99 mg/dL (74-106)
== END 2024-03-26 18:30 | disposition home or self-care (01) ==
LOC: ED 10:16 → MS3 03-25 08:35
PROVIDERS: Admitting Provider Hospitalist; Emergency Provider Emergency Medicine; PCP Family Medicine; Visit Provider Hospitalist
DX: M54.2 Cervicalgia (principal); J43.9 Emphysema, unspecified; G40.909 Epilepsy, unspecified, not intractable, without status epilepticus; E11.9 Type 2 diabetes mellitus without complications; R62.7 Adult failure to thrive; I10 Essential (primary) hypertension; E66.811 Obesity, class 1; R53.1 Weakness; F17.200 Nicotine dependence, unspecified, uncomplicated; F41.1 Generalized anxiety disorder; Z68.34 Body mass index [BMI] 34.0-34.9, adult; Z79.51 Long term (current) use of inhaled steroids; Z79.84 Long term (current) use of oral hypoglycemic drugs; R53.81 Other malaise; D50.9 Iron deficiency anemia, unspecified; Z87.820 Personal history of traumatic brain injury; Z79.899 Other long term (current) drug therapy; K21.9 Gastro-esophageal reflux disease without esophagitis; R00.0 Tachycardia, unspecified
CPT/HCPCS: 36415; 70450; 71045; 72070; 72100; 72125; 72141; 80048; 80053; 81001; 82550; 82607; 82728; 82746; 82962; 83036; 83540; 83550; 84484; 85025; 85027; 93005; 94640; 94668; 96361; 96365; 96372; 96375; 96376; 97110; 97162; 97166; 97530; 97535; 99221; 99285; J1756; A4216; G0378; J2405

== ENCOUNTER 2024-05-16 10:30 | Outpatient (RCR) | payer MEDICAID, SELFPAY ==
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
--- NOTE | 2024-05-16 12:28 | HP.PTDCSUM_ITS ---
Discharge Summary D/C summary: It has been my pleasure to treat TA DEE referred by Dr. Helder Camejo MD, with the diagnosis of generalized weakness, CVA and TBI for a total of 5 visit(s). Discharge Date: 05/16/24 Please see the following information for a summary of their discharge status. Subjective Subjective: Pt. reports overall feeling a little stronger, but is still having a lot of issues with his B shoulders. 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 He is having a pending shoulder MRI to determine best course of action. Pain B knees: Pain Intensity (Out of 10): 4 B shoulders: Pain Intensity (Out of 10): 4 Objective Objective/Function: MMT: RLE: knee: ext 33.0, flexion 27.9# LLE: ext 40.7#, flexion 17.3# Pt. did have increased pain with knee flexion TU.7 no LOB noted, but methodical pattern noted. Pt. is walking better today without issues. Pt. is now having issues with his shoulders. He is to follow up with ortho in the near future. Pt. plans on doing exercises with his nurse working on strengthening and endurance. pt. will be DC from PT at this point in time. Goals Goal 1:: LTG: Pt. to be I with HEP. Goal Progress: Goal Met Goal 2:: LTG: Pt. to have increased BLE strength to 5/5 throughout. Goal Progress: Goal Met Goal 3:: LTG: Pt. to complete TUG with time less than 12 seconds indicating decreased risk for falls. Goal Progress: Progressing Goal 4:: LTG: Pt. to complete FGA with at least 22/30 indicating reduce risk for falls. Goal Progress: Progressing Goal 5:: LTG: Pt. to have have normal gait pattern with LRD allowing for increased I at home and community. Goal Progress: Goal Met Plan Plan: Pt. to be DC from PT with plans on continuing to work on strengthening with his nurse, focus on LE and endrance training. D/C Information d/c sentence: If there are questions or concerns regarding this patient's physical therapy, please feel free to call me at [phone]. Thank you for the referral of this patient. Sincerely, Jered Petersen Sipos, DPT Balance/Gait/Functional tests Balance/Special Test Scores Functional Gait Assessment Score: 21 % Disability: 30.0000 Lower Extremity Functional Score: 15 TUG Test Time Seconds: 16.7 30 Second Chair Rise Test Seconds: 14
== END 2024-05-16 15:43 | disposition home or self-care (01) ==
LOC: PT 10:30
PROVIDERS: PCP Family Medicine; Referring Provider Family Medicine; Visit Provider Family Medicine
DX: R53.1 Weakness (principal); Z86.73 Personal history of transient ischemic attack (TIA), and cerebral infarction without residual deficits; Z87.820 Personal history of traumatic brain injury
CPT/HCPCS: 97113; 97161; 97530